=== PATIENT | female | born 1990 | race Caucasian/White ===

== ENCOUNTER 2022-09-27 07:59 | Outpatient (REF) | payer OTHER, SELFPAY ==
--- NOTE | ~2022-09-27 | US_ITS ---
EXAMINATION: US ABDOMEN COMPLETE CLINICAL INFORMATION: Left lower quadrant pain. Kidney disease. COMPARISON: None available. TECHNIQUE: Real-time imaging of the abdominal viscera. FINDINGS: PANCREAS: Normal. ABDOMINAL AORTA: The proximal, mid, and distal segments are normal in caliber. INFERIOR VENA CAVA: Visualized portions are normal. LIVER: Normal. The liver is normal in size. The liver contour is normal. Parenchymal echogenicity is normal. No focal hepatic lesion. There is no intrahepatic biliary duct dilatation seen. GALLBLADDER: Some ringdown artifact seen along the gallbladder wall suggestive of adenomyomatosis. The gallbladder is physiologically distended without evidence of stones, sludge, polyps, wall thickening or pericholecystic fluid. COMMON BILE DUCT: Normal in caliber measuring 0.3 cm in diameter. RIGHT KIDNEY: Column of Danial noted. No hydronephrosis. No renal calculi or focal parenchymal lesions. The kidney measures 9.7 cm in maximum dimension. LEFT KIDNEY: Normal. No hydronephrosis. No renal calculi or focal parenchymal lesions. The kidney measures 12.3 cm in maximum dimension. SPLEEN: Normal. The spleen measures 10.0 cm in maximum dimension. FREE FLUID: None. US/US abdomen complete IMPRESSION: No suspicious findings of the abdomen. Unremarkable appearance of the kidneys. Suggestion of adenomyomatosis of the gallbladder wall.
== END 2022-09-27 08:00 | disposition home or self-care (01) ==
LOC: HO.US 07:59
PROVIDERS: Visit Provider Physician Assistant
DX: R10.32 Left lower quadrant pain (principal); N28.9 Disorder of kidney and ureter, unspecified
CPT/HCPCS: 76700

== ENCOUNTER → 2022-10-03 09:56 | Outpatient (BNVA) | payer OTHER, SELFPAY | PROVIDERS: PCP Internal Medicine; Visit Provider Student in an Organized Health Care Education/Training Program ==

== ENCOUNTER 2022-12-06 13:25 | Outpatient (AMB) | payer OTHER, SELFPAY ==
[2022-12-06 13:30] VITALS: BP 102/62; PULSE 59; O2SAT 99; BMI 19.6
--- NOTE | 2022-12-06 13:30 | MHC.PC.OV ---
Vital Signs 12/06/22 13:30 Height 5 ft 8 in Weight 129 lb BMI 19.6 BP 102/62 Blood Pressure Location Lt brachial Position Sitting Pulse 59 Pulse Source Pulse Oximeter Pulse Oximetry (%) 99 Oxygen Delivery Method Room Air Intake Visit Reasons: New patient-Requesting physical Allergies amphetamine [From Adderall] Adverse Reaction (Intermediate, Verified 12/06/22 13:30) Hives dextroamphetamine [From Adderall] Adverse Reaction (Intermediate, Verified 12/06/22 13:30) Hives Medication List - Last Reconciled 12/06/22 by Yoni Jimenez MD ascorbic acid-elderberry fruit 100-50 mg (Airborne (elderberry)) tabs PO desogestrel-ethinyl estradiol 0.15-0.03 mg (Apri) 1 tab PO DAILY glycopyrrolate 2 mg PO BID loperamide 2 mg PO QID Tobacco use date assessed: 12/06/22 Dental Screening Dental Screen Date: 12/06/22 Did you have a dental visit in the last 12 months?: Yes Did you have a dental problem in the last 6 months where you did not have access to dental care?: No Was dental information given to patient?: Patient has dentist HPI New patient-Requesting physical HPI Details 32-year-old female with a history of migraine. Review of the notes seen by Rheumatology in October for positive ISABELLA. No evidence of autoimmune disease. hx of syncope - had post exercises and other one is heat. ? problem with depakote - was given before was mis diagnosed Seizure dizzy 2015, hearing problem PFSH Medical History (Updated 12/06/22 @ 14:07 by Yoni Jimenez MD) Migraine Surgical History Hx of colonoscopy Hx of tonsillectomy Family History (Updated 12/06/22 @ 13:50 by Yoni Jimenez MD) Mother No problems noted. 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 1. Little interest or pleasure in doing things: not at all 2. Feeling down, depressed, or hopeless: not at all 3. Trouble falling or staying asleep, or sleeping too much: not at all 4. Feeling tired or having little energy: not at all 5. Poor appetite or overeating: not at all 6. Feeling bad about yourself - or that you are a failure or have let yourself or your family down: not at all 7. Trouble concentrating on things, such as reading the newspaper or watching television: not at all 8. Moving or speaking so slowly that other people could have noticed. Or the opposite - being so fidgety or restless that you have been moving around a lot more than usual: not at all 9. Thoughts that you would be better off or of hurting yourself in some way: not at all Total score: 0 Depression Screening Interpretation: Negative Source: Developed by Drs. Jamie Saldivar, Mary Pickett, Vidal Langford and colleagues, with an educational jason from [employer]. Thrive Questionnaire Date Thrive assessed: 12/06/22 I am a: Patient What is your living situation today?: I have a steady place to live Within the past 12 months, did the food you bought not last and you didn't have the money to get more?: Never true Within the past 12 months, did you worry whether your food would run out before you got money to buy more?: Never true Do you have trouble paying for medicines?: No Do you have trouble getting transportation to medical appointments?: No Do you have trouble paying your heating and electricity bill?: No Do you have trouble taking care of your child, family member or friend?: No Do you have trouble with day-to-day activities such as bathing, preparing meals, shopping, managing finances, etc.?: No Are you currently unemployed and looking for a job?: No Are you interested in more education?: No Currently or been in a relationship where the following occur: no concerns reported AUDIT C Alcohol Use Questionnaire (AUDIT-C) 1. How often do you have a drink containing alcohol?: 2-3 times a week 2. How many drinks containing alcohol do you have on a typical day when you are drinking?: 1 or 2 3. How often do you have six or more drinks on one occasion?: Never Total Score: 3 MANA-7 AMB Questionnaire MANA-7 Date MANA - 7 assessed: 12/06/22 Feeling nervous, anxious, or on edge: 0 = Not at all Not being able to stop or control worryin = Not at all Worrying too much about different things: 0 = Not at all Trouble relaxin = Not at all Being so restless that it is hard to sit still: 0 = Not at all Becoming easily annoyed or irritable: 0 = Not at all Feeling afraid as if something awful might happen: 0 = Not at all Total MANA-7 score (0-4 normal; 5-9 mild; 10-14 moderate; 15-21 severe): 0 Source: Developed by Drs. Jamie Saldivar, Mary Pickett, Vidal Langford and colleagues, with an educational jason from [employer]. Review of Systems Const Denies poor appetite and Denies weakness Eyes Denies no additional complaints ENT Reports Normal hearing present, Denies dizziness, Denies nasal congestion, Denies tinnitus and Denies sore throat Card Denies chest pain, Denies syncope, Denies rapid heart rate and Denies dyspnea Resp Denies cough and Denies dyspnea GI Denies change in stool character, Reports constipation, Denies diarrhea, Denies nausea and Denies vomiting Denies urinary frequency, Denies difficulty voiding and Denies dysuria Neuro Reports Normal hearing present, Denies confusion, Denies dizziness, Denies syncope and Denies weakness Psych Denies confusion Physical exam (Primary Care) Vital Signs: Oxygen Delivery Method Room Air 12/06/22 13:30 BMI result Body Mass Index 19.6 Tobacco/Smoking Status: Tobacco use Status Patient Tobacco Use Status Never used Tobacco 10/03/22 10:15 Depression Screening Interpretation: Negative Currently or been in a relationship where the following occur: no concerns reported Const General: No confusion Orientation/consciousness: No confusion HENMT Head: Yes normocephalic Ears: external ears normal and TM's normal bilaterally Face and sinus: Yes normal facial exam Mouth: moist mucous membranes Throat: Yes tonsils normal Eyes Conjunctivae: conjunctivae normal Pupils: Equal, round and reactive pupils present and Pupil accommodation reflex normal Direct Ophthalmoscopy: normal light reflex Neck Neck: No lymphadenopathy Thyroid: Thyroid normal Chest Chest palpation & inspection: normal inspection of the chest Resp Effort & Inspection: normal respiratory effort and no audible wheezes Auscultation: clear to auscultation bilaterally, no crackles, no wheezes and lung sounds not diminished Cardio Rate: regular rate Rhythm: regular rhythm Peripheral pulses: radial pulses present and dorsalis pedis present GI Palpation (GI): no masses Auscultation: normal bowel sounds and normoactive bowel sounds Rectal Exam - Female: deferred Skin General skin exam: no rashes or lesions noted Rashes: no rashes Neuro General: No confusion Cranial nerves: Yes Equal, round and reactive pupils present and Yes Normal hearing present Cognition (Neuro): normal cognition Gait exam (Neuro): Normal gait present Motor exam (neuro): 5/5 motor strength present throughout Deep tendon reflexes (DTR's): Right brachioradialis reflex intensity grade: 2+, Left brachioradialis reflex intensity grade: 2+, Right patellar reflex intensity grade: 2+ and Left patellar reflex intensity grade: 2+ Extrem General: No edema Assessment and Plan Assessment & Plan (1) Annual physical exam: Code(s): Z00.00 - Encounter for general adult medical examination without abnormal findings (2) Migraine: Comment: once a med Code(s): G43.909 - Migraine, unspecified, not intractable, without status migrainosus Plan: Keep well-hydrated, eat healthy and keep active (3) Irritable bowel syndrome: Code(s): K58.9 - Irritable bowel syndrome without diarrhea (4) Hyperhidrosis: Code(s): R61 - Generalized hyperhidrosis (5) Generalized anxiety disorder: Code(s): F41.1 - Generalized anxiety disorder Orders: Orders Vitamin B12 and Folate Today R55 - Syncope and collapse Comprehensive Met. Panel Today R55 - Syncope and collapse Lipid Panel Today E78.00 - Pure hypercholesterolemia, unspecified, R55 - Syncope and collapse Free T4 (Free Thyroxine) Today R55 - Syncope and collapse Thyroid Stimulating Hormone Today R55 - Syncope and collapse Vitamin D 25-OH Total Today R55 - Syncope and collapse Complete Blood Count Auto Diff Today R55 - Syncope and collapse UA w Microscopic Today R55 - Syncope and collapse Medications: New ubrogepant (Ubrelvy) 100 mg PO .Q month 30 days 10 tabs 0RF G43.909 - Migraine, unspecified, not intractable, without status migrainosus glycopyrrolate 2 mg PO BID 180 tabs 0RF R61 - Generalized hyperhidrosis alprazolam 0.25 mg PO DAILY PRN 10 tabs 0RF anxiety F41.1 - Generalized anxiety disorder Refilled glycopyrrolate 2 mg PO BID 180 tabs 0RF R61 - Generalized hyperhidrosis Coding Level of Care Code New Pt Prev Care 18-39yr([id number] Diagnoses Annual physical exam Z00.00 Migraine G43.909 Irritable bowel syndrome K58.9 Hyperhidrosis R61 Generalized anxiety disorder F41.1
== END 2022-12-06 14:42 | disposition home or self-care (01) ==
PROVIDERS: PCP Internal Medicine; Visit Provider Internal Medicine
DX: Z00.00 Encounter for general adult medical examination without abnormal findings (principal); G43.909 Migraine, unspecified, not intractable, without status migrainosus; K58.9 Irritable bowel syndrome, unspecified; R61 Generalized hyperhidrosis; F41.1 Generalized anxiety disorder
CPT/HCPCS: 99385

== ENCOUNTER 2022-12-09 07:15 | Outpatient (REF) | payer OTHER, SELFPAY ==
[2022-12-09 07:32] LABS: MANUAL DIFF FLAG NO
[2022-12-09 08:09] LABS: Basophils Percent Auto 0.5 % (0-2); Eosinophils Absolute Auto 0.2 X10*3/uL (0.0-0.4); Eosinophils Percent Auto 2.7 % (0-4); Hematocrit 38.1 % (37.0-47.0); Hemoglobin 12.4 g/dl (12.0-16.0); Imm Gran Abs Auto 0.02 X10*3/uL (0.00-0.03); Imm Gran Pct Auto 0.3 % (0.0-0.4); Lymphocytes Absolute Auto 2.4 X10*3/uL (1.2-4.9); Mean Corpuscular HGB Conc 32.5 g/dl (31.0-35.0); Mean Corpuscular Hemoglobin 29.5 pg (27.0-33.0); Mean Corpuscular Volume 90.7 fL (80.0-98.0); Mean Platelet Volume 10.3 fL (9.4-12.3); Monocytes Absolute Auto 0.5 X10*3/uL (0.1-1.2); Monocytes Percent Auto 8.4 % (2-11); Neutrophils Absolute Auto 3.2 x10*3/uL (2.0-8.3); Neutrophils Percent Auto 50.1 % (45-73); Platelet Count 192 X10*3/uL (160-400); Red Cell Distribution Width 11.6 % (11.0-16.0); White Blood Count 6.3 X10*3/uL (4.8-10.8)
[2022-12-09 08:43] LABS: Alanine Aminotransferase 15 U/L (0-31); Albumin Level 3.8 g/dL (3.5-5.0); Alkaline Phosphatase 34 U/L (39-117); Anion Gap 14 (12-20); Aspartate Amino Transferase 15 U/L (5-31); Bilirubin Total 0.6 mg/dL (0.0-1.0); Blood Urea Nitrogen 11 mg/dL (9-16); Calcium 8.7 mg/dL (8.4-10.2); Carbon Dioxide 22 mmol/L (22-29); Chloride 108 mmol/L (96-108); Cholesterol 201 mg/dL; Estimated Glomerular Filt Rate > 60; Glucose Random 86 mg/dL (60-115); HDL Cholesterol 60 mg/dL; LDL Cholesterol Calculated 117 mg/dl; Potassium 3.9 mmol/L (3.3-5.1); Sodium 140 mmol/L (135-145); Total Protein 6.6 g/dL (6.5-8.0); Triglycerides 123 mg/dL
[2022-12-09 09:02] LABS: Appearance Urine Cloudy; Color Urine Yellow; Glucose Urine UA Negative (Negative); Leukocyte Esterase Urine Moderate (2+) (Negative); Nitrite Urine Negative (Negative); PH 5.5 (5.0-9.0); Specific Gravity - Urine >= 1.030 (1.005-1.025); UMIC TRIGGER UA YES; Urine Blood Small (1+) (Negative); Urine Ketones Trace mg/dL (Negative); Urine Protein Trace mg/dL (Neg-Trace)
[2022-12-09 09:04] LABS: Free T4 (Free Thyroxine) 0.83 ng/dL (0.71-1.85); Thyroid Stimulating Hormone 1.58 uIU/mL (0.32-4.0); Vitamin D 25-OH Total 31.5 ng/mL (>30)
[2022-12-09 09:08] LABS: Folate 14.7 ng/mL (> or = 4.0); Vitamin B12 595 pg/mL (200-900)
[2022-12-09 09:12] LABS: Bacteria Urine 3+ (None Seen); WBC Urine >50 /HPF (0-5)
== END 2022-12-09 07:16 | disposition home or self-care (01) ==
LOC: HO.LAB 07:15
PROVIDERS: PCP Internal Medicine; Visit Provider Internal Medicine
DX: R55 Syncope and collapse (principal); E78.00 Pure hypercholesterolemia, unspecified; E55.9 Vitamin D deficiency, unspecified
CPT/HCPCS: 36415; 80053; 80061; 81001; 82306; 82607; 82746; 84439; 84443; 85025

== ENCOUNTER 2023-03-20 10:55 | Outpatient (AMB) | payer OTHER, SELFPAY ==
[2023-03-20 10:58] VITALS: BP 114/68; PULSE 69; O2SAT 98; BMI 19.9
--- NOTE | 2023-03-20 10:58 | A.OFFPC_ITS ---
Vital Signs 03/20/23 10:58 Height 5 ft 8 in Weight 59.421 kg BMI 19.9 BP 114/68 Blood Pressure Location Lt brachial Position Sitting Pulse 69 Pulse Source Pulse Oximeter Pulse Oximetry (%) 98 Oxygen Delivery Method Room Air Intake Visit Reasons: 3 month f/u Allergies amphetamine [From Adderall] Adverse Reaction (Intermediate, Verified 03/20/23 10:58) Hives dextroamphetamine [From Adderall] Adverse Reaction (Intermediate, Verified 03/20/23 10:58) Hives Medication List - Last Reconciled 03/20/23 by Yoni Jimenez MD aluminum chloride in alcohol 6.25% (Xerac AC) 1 appl topical BEDTIME ascorbic acid-elderberry fruit 100-50 mg (Airborne (elderberry)) tabs PO desogestrel-ethinyl estradiol 0.15-0.03 mg (Apri) 1 tab PO DAILY glycopyrrolate 2 mg PO BID loperamide 2 mg PO QID ubrogepant (Ubrelvy) 100 mg PO .Q month 30 days Tobacco use date assessed: 12/06/22 Dental Screening Dental Screen Date: 03/20/23 Did you have a dental visit in the last 12 months?: Yes Did you have a dental problem in the last 6 months where you did not have access to dental care?: No Was dental information given to patient?: Patient has dentist HPI 3 month f/u HPI Details 33-year-old female with a history of [facility] irritable bowel syndrome hyperhidrosis in generalized anxiety disorder last seen in December 2022. Patient is here for follow-up patient has been sent to dermatology prescribed Drysol andQbrexa and glycopyrollate, xxerac. As for the irritable bowel syndrome seen in December 2022 on loperamide p.r.n. states brain fog, no passing out 3 months but anxious- seen neuro before ? was told seizure- patient saw another neurologist which refuted the diagnosis. Patient has been having right flank pain and discussed with the patient that with the urinalysis this could be infection. Advised to take the antibiotic. Patient also feels this problem on done neck having knot feeling right side of the neck and him foggy patient feels this when she gets anxious. Discussed about anxiety medication [facility] Medical History (Updated 03/20/23 @ 12:03 by Yoni Jimenez MD) Migraine Surgical History Hx of colonoscopy Hx of tonsillectomy Family History (Updated 12/06/22 @ 13:50 by Yoni Jimenez MD) Mother No problems noted. 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 1. Little interest or pleasure in doing things: not at all 2. Feeling down, depressed, or hopeless: not at all 3. Trouble falling or staying asleep, or sleeping too much: not at all 4. Feeling tired or having little energy: not at all 5. Poor appetite or overeating: not at all 6. Feeling bad about yourself - or that you are a failure or have let yourself or your family down: not at all 7. Trouble concentrating on things, such as reading the newspaper or watching television: not at all 8. Moving or speaking so slowly that other people could have noticed. Or the opposite - being so fidgety or restless that you have been moving around a lot more than usual: not at all 9. Thoughts that you would be better off or of hurting yourself in some way: not at all Total score: 0 Depression Screening Interpretation: Negative Depression Screening Done: Yes Source: Developed by Drs. Jamie Saldivar, Mary Pickett, Vidal Langford and colleagues, with an educational jason from [employer]. Thrive Questionnaire Date Thrive assessed: 12/06/22 AUDIT C Alcohol Use Questionnaire (AUDIT-C) 1. How often do you have a drink containing alcohol?: 2-3 times a week 2. How many drinks containing alcohol do you have on a typical day when you are drinking?: 1 or 2 3. How often do you have six or more drinks on one occasion?: Never Total Score: 3 MANA-7 AMB Questionnaire MANA-7 Date MANA - 7 assessed: 12/06/22 Source: Developed by Drs. Jamie Saldivar, Mary Pickett, Vidal Langford and colleagues, with an educational jason from [employer]. Physical exam (Primary Care) Vital Signs: Last Vital Signs Pulse 69 03/20/23 10:58 BP 114/68 03/20/23 10:58 Pulse Ox 98 03/20/23 10:58 Oxygen Delivery Method Room Air 03/20/23 10:58 BMI result Body Mass Index 19.9 Tobacco/Smoking Status: Tobacco use Status Tobacco use date assessed 12/06/22 03/20/23 10:59 Patient Tobacco Use Status Never used Tobacco 03/20/23 10:59 e-Cigarette/Vaping Use Never Used 03/20/23 10:59 PHQ-9: PHQ-9 Score PHQ-9: Total score 0 03/20/23 11:51 Depression Screening Interpretation: Negative Thrive Assessment: Date of Thrive Assessment Date Thrive assessed 12/06/22 03/20/23 10:59 Const General: alert; No acute distress Eyes Conjunctivae: conjunctivae normal Resp Auscultation: clear to auscultation bilaterally Cardio Rate: regular rate Rhythm: regular rhythm GI Inspection: Yes normal to inspection Extrem General: Yes normal to inspection and No edema Office Procedures Flu Questionnaire Does the patient have a severe egg allergy?: No Does the patient have severe life threatening allergies?: No Does the patient have a fever or illness today?: No Has the patient ever had Guillain-[place] Syndrome?: No Has the patient ever had any past reaction to a flu shot?: No Immunizations flu vacc [id number] 6mos up(PF) 60 mcg(15 mcgx4)/0.5 mL IM syringe Performing Provider: Yoni Jimenez MD [facility] [place] [facility] Administered by: Marleny Ambriz CMA on 03/20/23 12:14 Dose Route Admin Location Dispensed Lot Number Expiration Date [employer] 0.5 mL IM Left Deltoid 0.5 mL [id number] 11/02/23 53371-410-00 [employer] VIS Given Date VIS Provided VIS Publication Date 03/20/23 Single Vaccine 20 Eligibility Eligibility Date Funding Source Not [facility] Eligible 03/20/23 Private Assessment and Plan Assessment & Plan (1) Hyperhidrosis: Code(s): R61 - Generalized hyperhidrosis Plan: Patient follows up with Dermatology (2) Migraine: Comment: once a med Code(s): G43.909 - Migraine, unspecified, not intractable, without status migrainosus Plan: Keep well hydrated have good sleep habits (3) Irritable bowel syndrome: Code(s): K58.9 - Irritable bowel syndrome without diarrhea Plan: Patient on loperamide p.r.n. (4) Generalized anxiety disorder: Code(s): F41.1 - Generalized anxiety disorder Plan: Continue with present medication as needed (5) UTI (urinary tract infection): Code(s): N39.0 - Urinary tract infection, site not specified (6) Thoracic back pain: Code(s): M54.6 - Pain in thoracic spine (7) Neck pain: Code(s): M54.2 - Cervicalgia Orders: Orders XR cervical spine 2V Today M54.2 - Cervicalgia XR thoracic spine 2V Today M54.6 - Pain in thoracic spine Influenza [id number] Immunization Today Z23 - Encounter for immunization Medications: New aluminum chloride in alcohol 6.25% (Xerac AC) 1 appl topical BEDTIME 35 mL 1RF R61 - Generalized hyperhidrosis escitalopram oxalate (Lexapro) 5 mg PO DAILY 30 tabs 1RF F41.1 - Generalized anxiety disorder Coding Level of Care Code Est Pt Level 4 (83025) Diagnoses Hyperhidrosis R61 Migraine G43.909 Irritable bowel syndrome K58.9 Generalized anxiety disorder F41.1 UTI (urinary tract infection) N39.0 Thoracic back pain M54.6 Neck pain M54.2
== END 2023-03-20 12:12 | disposition home or self-care (01) ==
PROVIDERS: PCP Internal Medicine; Visit Provider Internal Medicine
DX: R61 Generalized hyperhidrosis (principal); G43.909 Migraine, unspecified, not intractable, without status migrainosus; K58.9 Irritable bowel syndrome, unspecified; F41.1 Generalized anxiety disorder; N39.0 Urinary tract infection, site not specified; M54.6 Pain in thoracic spine; M54.2 Cervicalgia; Z23 Encounter for immunization
CPT/HCPCS: 90471; 90686; 99214

== ENCOUNTER 2023-04-11 07:12 | Outpatient (REF) | payer OTHER, SELFPAY ==
--- NOTE | ~2023-04-11 | XR_ITS ---
EXAMINATION: XR CERVICAL SPINE CLINICAL INFORMATION: Neck pain COMPARISON: None available. TECHNIQUE: 3 views of the cervical spine were obtained. FINDINGS: The visualized cervical vertebrae are intact with normal alignment. Odontoid process is intact with normal C1/C2 lateral masses alignment. Pre-dental interval is normal. Pre vertebral soft tissue is normal in thickness. XR/XR cervical spine 2V IMPRESSION: 1. Normal cervical spine x-ray. 2. No fracture or dislocation of cervical spine is seen.
--- NOTE | ~2023-04-11 | XR_ITS ---
EXAMINATION: XR THORACOLUMBAR SPINE CLINICAL INFORMATION: Fluoroscopy thoracic spine pain COMPARISON: Thoracic spine x-ray on 02/17/2008 TECHNIQUE: Frontal and lateral x-ray of thoracic spine FINDINGS: Frontal, lateral views x-rays of the thoracic spine are obtained. The visualized thoracic vertebrae are intact with normal alignment. Intervertebral disc spaces are normal. XR/XR thoracic spine 2V IMPRESSION: 1. Unchanged Normal thoracic spine x-ray. 2. No fracture or dislocation of thoracic spine is seen.
== END 2023-04-11 07:13 | disposition home or self-care (01) ==
LOC: HO.XRAY 07:12
PROVIDERS: PCP Internal Medicine; Visit Provider Internal Medicine
DX: M54.2 Cervicalgia (principal); M54.6 Pain in thoracic spine
CPT/HCPCS: 72040; 72070

== ENCOUNTER 2023-05-15 15:01 | Outpatient (AMB) | payer OTHER, SELFPAY ==
[2023-05-15 15:04] VITALS: BP 116/78; PULSE 70; O2SAT 99; BMI 20.5
--- NOTE | 2023-05-15 15:04 | A.OFFPC_ITS ---
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: No Allergies amphetamine [From Adderall] Adverse Reaction (Intermediate, Verified 05/15/23 15 :06) Hives dextroamphetamine [From Adderall] Adverse Reaction (Intermediate, Verified 05/15/23 15:06) Hives Medication List - Last Reconciled 05/15/23 by Yoni Jimenez MD acyclovir 5% (Zovirax) 1 appl topical 6XD 7 days aluminum chloride in alcohol 6.25% (Xerac AC) 1 appl topical BEDTIME ascorbic acid-elderberry fruit 100-50 mg (Airborne (elderberry)) tabs PO desogestrel-ethinyl estradiol 0.15-0.03 mg (Apri) 1 tab PO DAILY escitalopram oxalate (Lexapro) 5 mg PO DAILY glycopyrrolate 2 mg PO BID loperamide 2 mg PO QID ubrogepant (Ubrelvy) 100 mg PO .Q month 30 days Tobacco use date assessed: 05/15/23 Dental Screening Dental Screen Date: 05/15/23 Did you have a dental visit in the last 12 months?: Yes Did you have a dental problem in the last 6 months where you did not have access to dental care?: No Was dental information given to patient?: Patient has dentist HPI MANA HPI Details 33-year-old female with hyperhidrosis mi graine irritable bowel syndrome generalized anxiety disorder coming in for follow-up. Last seen in March 2023 had thoracic back pain and neck pain. Patient did have some x-rays done on the thoracic spine and cervical spine these were normal [facility]LY [facility], [facility] Medical History (Updated 05/15/23 @ 15:44 by Yoni Jimenez MD) Migraine Surgical History Hx of colonoscopy Hx of tonsillectomy Family History (Updated 12/06/22 @ 13:50 by Yoni Jimenez MD) Mother No problems noted. 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 1. Little interest or pleasure in doing things: not at all 2. Feeling down, depressed, or hopeless: not at all 3. Trouble falling or staying asleep, or sleeping too much: not at all 4. Feeling tired or having little energy: not at all 5. Poor appetite or overeating: not at all 6. Feeling bad about yourself - or that you are a failure or have let yourself or your family down: not at all 7. Trouble concentrating on things, such as reading the newspaper or watching television: not at all 8. Moving or speaking so slowly that other people could have noticed. Or the opposite - being so fidgety or restless that you have been moving around a lot more than usual: not at all 9. Thoughts that you would be better off or of hurting yourself in some way: not at all Total score: 0 Depression Screening Interpretation: Negative Depression Screening Done: Yes Source: Developed by Drs. Jamie Saldivar, Mary Pickett, Vidal Langford and colleagues, with an educational jason from [employer]. Thrive Questionnaire Date Thrive assessed: 12/06/22 AUDIT C Alcohol Use Questionnaire (AUDIT-C) 1. How often do you have a drink containing alcohol?: 2-3 times a week 2. How many drinks containing alcohol do you have on a typical day when you are drinking?: 1 or 2 3. How often do you have six or more drinks on one occasion?: Never Total Score: 3 MANA-7 AMB Questionnaire MANA-7 Date MANA - 7 assessed: 05/15/23 Feeling nervous, anxious, or on edge: 0 = Not at all Not being able to stop or control worryin = Not at all Worrying too much about different things: 0 = Not at all Trouble relaxin = Not at all Being so restless that it is hard to sit still: 0 = Not at all Becoming easily annoyed or irritable: 0 = Not at all Feeling afraid as if something awful might happen: 0 = Not at all Total MANA-7 score (0-4 normal; 5-9 mild; 10-14 moderate; 15-21 severe): 0 Source: Developed by Drs. Jamie Saldivar, Mary Pickett, Vidal Langford and colleagues, with an educational jason from [employer]. Physical exam (Primary Care) Vital Signs: Last Vital Signs Pulse 70 05/15/23 15:04 BP 116/78 05/15/23 15:04 Pulse Ox 99 05/15/23 15:04 Oxygen Delivery Method Room Air 05/15/23 15:04 BMI result Body Mass Index 20.5 Tobacco/Smoking Status: Tobacco use Status Tobacco use date assessed 05/15/23 05/15/23 15:08 Patient Tobacco Use Status Never used Tobacco 05/15/23 15:08 e-Cigarette/Vaping Use Never Used 05/15/23 15:08 PHQ-9: PHQ-9 Score PHQ-9: Total score 0 05/15/23 15:08 Depression Screening Interpretation: Negative Thrive Assessment: Date of Thrive Assessment Date Thrive assessed 12/06/22 05/15/23 15:08 Const General: alert; No acute distress Eyes Conjunctivae: conjunctivae normal Resp Auscultation: clear to auscultation bilaterally Cardio Rate: regular rate Rhythm: regular rhythm GI Inspection: Yes normal to inspection Extrem General: Yes normal to inspection and No edema Assessment and Plan Assessment & Plan (1) Neck pain: Code(s): M54.2 - Cervicalgia Plan: Keep active and stretch (2) Thoracic back pain: Code(s): M54.6 - Pain in thoracic spine Plan: Keep active (3) Generalized anxiety disorder: Code(s): F41.1 - Generalized anxiety disorder Plan: Continue with medication (4) Hearing deficit: Code(s): H91.90 - Unspecified hearing loss, unspecified ear Orders: Orders Complete Blood Count Auto Diff 6 Months R61 - Generalized hyperhidrosis Comprehensive Met. Panel 6 Months R61 - Generalized hyperhidrosis Free T4 (Free Thyroxine) 6 Months R61 - Generalized hyperhidrosis Vitamin B12 and Folate 6 Months R61 - Generalized hyperhidrosis Vitamin D 25-OH Total 6 Months R61 - Generalized hyperhidrosis Erythrocyte Sedimentation Rate 6 Months R61 - Generalized hyperhidrosis C Reactive Protein 6 Months R61 - Generalized hyperhidrosis XR chest 2V Today M54.6 - Pain in thoracic spine Lipid Panel 6 Months E78.00 - Pure hypercholesterolemia, unspecified, R61 - Generalized hyperhidrosis UA w Microscopic 6 Months R61 - Generalized hyperhidrosis Referrals Gastroenterology Referral K58.9 - Irritable bowel syndrome without diarrhea Speech and Hearing Referral H91.90 - Unspecified hearing loss, unspecified ear Medications: New desogestrel-ethinyl estradiol 0.15-0.03 mg (Apri) 1 tab PO DAILY 84 tabs 1RF acyclovir 5% (Zovirax) 1 appl topical 6XD 5 grams 0RF 7 days K58.9 - Irritable bowel syndrome without diarrhea acyclovir 5% (Zovirax) 1 appl topical 6XD 5 grams 0RF 7 days Refilled desogestrel-ethinyl estradiol 0.15-0.03 mg (Apri) 1 tab PO DAILY 84 tabs 1RF K58.9 - Irritable bowel syndrome without diarrhea Coding Level of Care Code Est Pt Level 4 (77379) Diagnoses Neck pain M54.2 Thoracic back pain M54.6 Generalized anxiety disorder F41.1 Hearing deficit H91.90
== END 2023-05-15 15:51 | disposition home or self-care (01) ==
PROVIDERS: PCP Internal Medicine; Visit Provider Internal Medicine
DX: M54.2 Cervicalgia (principal); M54.6 Pain in thoracic spine; F41.1 Generalized anxiety disorder; H91.90 Unspecified hearing loss, unspecified ear
CPT/HCPCS: 99214

== ENCOUNTER 2023-05-16 08:19 | Outpatient (REF) | payer OTHER, SELFPAY ==
--- NOTE | ~2023-05-16 | XR_ITS ---
EXAMINATION: XR CHEST CLINICAL INFORMATION: Pain in the thoracic spine. COMPARISON: None available. TECHNIQUE: 2 views of the chest were obtained. FINDINGS: Normal appearance of the cardiomediastinal silhouette. No focal airspace opacities, pleural effusion or pneumothorax. No acute osseous findings. Visualized upper abdomen is within normal limits. XR/XR chest 2V IMPRESSION: 1. No acute cardiopulmonary findings. 2. No acute osseous findings. However, if symptoms persist, evaluation with dedicated radiographic views of the thoracic spine is recommended.
== END 2023-05-16 08:20 | disposition home or self-care (01) ==
LOC: HO.XRAY 08:19
PROVIDERS: PCP Internal Medicine; Visit Provider Internal Medicine
DX: M54.6 Pain in thoracic spine (principal)
CPT/HCPCS: 71046

== ENCOUNTER 2023-07-21 13:56 | Outpatient (AMB) | payer OTHER, SELFPAY ==
[2023-07-21 13:59] VITALS: BP 112/66; PULSE 77; BMI 21.9
--- NOTE | 2023-07-21 13:59 | MHC.OFFVIS ---
Intake Vital Signs 07/21/23 13:59 Height 5 ft 8 in Weight 144 lb 2.917 oz BMI 21.9 BP 112/66 Blood Pressure Location Rt brachial Position Sitting Pulse 77 Pulse Source Pulse Oximeter Intake Visit Reasons: Irritable bowel syndrome Intake Note: Pt presents to the office today for IBS. She states she has to constantly having to use immodium everyday. She states she has diarrhea mainly after she eats but it can happen at random times as well. She states she has been having this issue since about 2007. Pt denies any Nausea or vomiting. Allergies amphetamine [From Adderall] Adverse Reaction (Intermediate, Verified 07/21/23 14:00) Hives dextroamphetamine [From Adderall] Adverse Reaction (Intermediate, Verified 07/21/23 14:00) Hives HPI HPI Comments History of Present Illness Details Emilia is 33 y.o F with H who is here to establish care for IBS-D. Was diagnosed in 2007 for abd cramping and diarrhea. Prev used to get care at [facility] and before that Dr Edouard. Has trialed different IBS meds with side effects so now on Loperamide only. Currently, reports well controlled on imodium. Has may be 1 bad day in a week. Takes loperamide anywhere from 4-6mg per day. Also takes supplements including lions julieta, elderberry, ashwagandha, magnesium. Pt also noted to be on glycopyrrolate started by Director Of [employer]. Does reduce loperamide when she take glycopyrrolate. [facility] Medical History (Updated 05/15/23 @ 15:44 by Yoni Jimenez MD) Migraine Surgical History Hx of colonoscopy Hx of tonsillectomy Family History (Updated 12/06/22 @ 13:50 by Yoni Jimenez MD) Mother No problems noted. 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 Has had extensive work up done in past with x3 GIs. Now establishing care as moved from [place] to [place]. Reports excellent control of sx with loperamide which she has been taking for years and titrates to effect. No other concerns today. Will get records of last endoscopy from [facility] for reconciliation. Follow up in a year Medications: Changed From loperamide 2 mg PO QID 10 days 40 caps 0RF diarrhea To loperamide 2 mg PO QID 30 days 120 caps 1RF diarrhea Coding Level of Care Code New Pt Level 3 (57347) Diagnoses Irritable bowel syndrome K58.9
== END 2023-07-21 14:43 | disposition home or self-care (01) ==
PROVIDERS: PCP Internal Medicine; Visit Provider Internal Medicine
DX: K58.9 Irritable bowel syndrome, unspecified (principal)
CPT/HCPCS: 99203

== ENCOUNTER → 2023-07-21 13:56 | Outpatient (BNVA) | payer OTHER, SELFPAY | PROVIDERS: PCP Internal Medicine; Visit Provider Internal Medicine ==

== ENCOUNTER 2023-07-25 08:22 | Outpatient (REF) | payer OTHER, SELFPAY | END 2023-07-25 08:23 | disposition home or self-care (01) | LOC: HO.SH 08:22 | PROVIDERS: PCP Internal Medicine; Visit Provider Internal Medicine | DX: Z01.118 Encounter for examination of ears and hearing with other abnormal findings (principal); H91.90 Unspecified hearing loss, unspecified ear | CPT/HCPCS: 92557; 92567; 92588 ==

== ENCOUNTER 2023-12-09 07:01 | Outpatient (REF) | payer OTHER, SELFPAY ==
[2023-12-09 07:20] LABS: MANUAL DIFF FLAG NO
[2023-12-09 08:01] LABS: Basophils Percent Auto 0.5 % (0-2); Eosinophils Absolute Auto 0.3 X10*3/uL (0.0-0.4); Eosinophils Percent Auto 5.2 % (0-4); Hematocrit 36.4 % (37.0-47.0); Hemoglobin 12.2 g/dl (12.0-16.0); Imm Gran Abs Auto 0.01 X10*3/uL (0.00-0.03); Imm Gran Pct Auto 0.2 % (0.0-0.4); Lymphocytes Absolute Auto 2.4 X10*3/uL (1.2-4.9); Lymphocytes Percent Auto 43.1 % (20-40); Mean Corpuscular HGB Conc 33.5 g/dl (31.0-35.0); Mean Corpuscular Hemoglobin 30.4 pg (27.0-33.0); Mean Corpuscular Volume 90.8 fL (80.0-98.0); Mean Platelet Volume 10.3 fL (9.4-12.3); Monocytes Absolute Auto 0.5 X10*3/uL (0.1-1.2); Monocytes Percent Auto 8.7 % (2-11); Neutrophils Absolute Auto 2.3 x10*3/uL (2.0-8.3); Neutrophils Percent Auto 42.3 % (45-73); Platelet Count 245 X10*3/uL (160-400); Red Blood Count 4.01 X10*6/uL (4.20-5.50); Red Cell Distribution Width 11.7 % (11.0-16.0); White Blood Count 5.5 X10*3/uL (4.8-10.8)
[2023-12-09 08:35] LABS: Alanine Aminotransferase 17 U/L (0-31); Albumin Level 3.8 g/dL (3.5-5.0); Alkaline Phosphatase 36 U/L (39-117); Anion Gap 13 (12-20); Aspartate Amino Transferase 14 U/L (5-31); Bilirubin Total 0.6 mg/dL (0.0-1.0); Blood Urea Nitrogen 10 mg/dL (9-16); C Reactive Protein 0.39 mg/dL (< or = 0.50); Calcium 8.8 mg/dL (8.4-10.2); Carbon Dioxide 27 mmol/L (22-29); Chloride 107 mmol/L (96-108); Cholesterol 190 mg/dL (<200); Estimated Glomerular Filt Rate > 60; Glucose Random 89 mg/dL (60-115); HDL Cholesterol 60 mg/dL (>40); LDL Cholesterol Calculated 99 mg/dL (<100); Sodium 143 mmol/L (135-145); Total Protein 6.5 g/dL (6.5-8.0); Triglycerides 156 mg/dL (<150)
[2023-12-09 08:49] LABS: Erythrocyte Sedimentation Rate 6 MM/HR (0-20)
[2023-12-09 08:55] LABS: Free T4 (Free Thyroxine) 0.84 ng/dL (0.71-1.85); Vitamin D 25-OH Total 39.3 ng/mL (>30)
[2023-12-09 09:02] LABS: Folate 11.6 ng/mL (> or = 4.0); Vitamin B12 386 pg/mL (200-900)
[2023-12-09 10:25] LABS: Appearance Urine Turbid; Color Urine Dark Yellow; Glucose Urine UA Negative (Negative); Leukocyte Esterase Urine Moderate (2+) (Negative); Nitrite Urine Negative (Negative); Specific Gravity - Urine >= 1.030 (1.005-1.025); UMIC TRIGGER UA YES; Urine Blood Small (1+) (Negative); Urine Ketones Trace mg/dL (Negative); Urine Protein 30 (1+) mg/dL (Neg-Trace)
[2023-12-09 10:46] LABS: Bacteria Urine 4+ (None Seen); WBC Urine >50 /HPF (0-5)
== END 2023-12-09 07:02 | disposition home or self-care (01) ==
LOC: HO.LAB 07:01
PROVIDERS: PCP Internal Medicine; Visit Provider Internal Medicine
DX: R61 Generalized hyperhidrosis (principal); E78.00 Pure hypercholesterolemia, unspecified
CPT/HCPCS: 36415; 80053; 80061; 81001; 82306; 82607; 82746; 84439; 85025; 85652; 86140

== ENCOUNTER 2023-12-15 16:01 | Outpatient (AMB) | payer OTHER, SELFPAY ==
[2023-12-15 16:06] VITALS: BP 108/62; PULSE 68; O2SAT 97; BMI 21.3
--- NOTE | 2023-12-15 16:06 | A.OFFPC_ITS ---
Vital Signs 12/15/23 16:06 Height 5 ft 8 in Weight 140 lb BMI 21.3 BP 108/62 Blood Pressure Location Lt brachial Position Sitting Pulse 68 Pulse Source Pulse Oximeter Pulse Oximetry (%) 97 Oxygen Delivery Method Room Air Intake Visit Reasons: ANNUAL Allergies sumatriptan Allergy (Intermediate, Unverified 12/15/23 16:22) burning sensation nose amphetamine [From Adderall] Adverse Reaction (Intermediate, Verified 12/15/23 16:07) Hives dextroamphetamine [From Adderall] Adverse Reaction (Intermediate, Verified 12/15/23 16:07) Hives Medication List - Last Reconciled 12/15/23 by Yoni Jimenez MD acyclovir 5% (Zovirax) 1 appl topical 6XD 7 days aluminum chloride in alcohol 6.25% (Xerac AC) 1 appl topical BEDTIME ascorbic acid-elderberry fruit 100-50 mg (Airborne (elderberry)) tabs PO desogestrel-ethinyl estradiol 0.15-0.03 mg (Apri) 1 tab PO DAILY escitalopram oxalate 10 mg PO DAILY glycopyrrolate 2 mg PO BID loperamide 2 mg PO QID ubrogepant (Ubrelvy) 100 mg PO .Q month 30 days Tobacco use date assessed: 05/15/23 Dental Screening Dental Screen Date: 12/15/23 Did you have a dental visit in the last 12 months?: Yes Did you have a dental problem in the last 6 months where you did not have access to dental care?: No Was dental information given to patient?: Patient has dentist HPI ANNUAL HPI Details 33-year-old female coming in for physica l exam. History of generalized anxiety disorder migraine irritable bowel syndrome. Patient was last seen in 05/2023. Review of the notes has been follow-up with Dermatology diagnosis of dermatosis which is presently cleared up. Received the notes also for 2018 procedure from the Gastroenterology for small-bowel EGD revealing normal biopsy results. Patient also had a colonoscopy in 2019 normal. [facility] Medical History (Updated 12/15/23 @ 16:26 by Yoni Jimenez MD) Migraine Surgical History Hx of colonoscopy Hx of tonsillectomy Family History (Updated 12/06/22 @ 13:50 by Yoni Jimenez MD) Mother No problems noted. Father Hypertension Sister Melanoma Paternal Aunt Breast cancer Paternal Uncle Brain cancer Maternal Grandmother Breast cancer Social History (Updated 12/15/23 @ 16:23 by Yoni Jimenez MD) Household Members: None Housing: House Alcohol intake: current Alcohol intake frequency: holidays/special occasions only Comment: 1-2 /month - 1-2 drinks. 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 1. Little interest or pleasure in doing things: not at all 2. Feeling down, depressed, or hopeless: not at all 3. Trouble falling or staying asleep, or sleeping too much: not at all 4. Feeling tired or having little energy: not at all 5. Poor appetite or overeating: not at all 6. Feeling bad about yourself - or that you are a failure or have let yourself or your family down: not at all 7. Trouble concentrating on things, such as reading the newspaper or watching television: not at all 8. Moving or speaking so slowly that other people could have noticed. Or the opposite - being so fidgety or restless that you have been moving around a lot more than usual: not at all 9. Thoughts that you would be better off or of hurting yourself in some way: not at all Total score: 0 Depression Screening Interpretation: Negative Depression Screening Done: Yes Source: Developed by Drs. Jamie Saldivar, Mary Pickett, Vidal Langford and colleagues, with an educational jason from [employer]. Thrive Questionnaire Date Thrive assessed: 12/15/23 I am a: Patient What is your living situation today?: I have a steady place to live Within the past 12 months, did the food you bought not last and you didn't have the money to get more?: Never true Within the past 12 months, did you worry whether your food would run out before you got money to buy more?: Never true Do you have trouble paying for medicines?: No Do you have trouble getting transportation to medical appointments?: No Do you have trouble paying your heating and electricity bill?: No Do you have trouble taking care of your child, family member or friend?: No Do you have trouble with day-to-day activities such as bathing, preparing meals, shopping, managing finances, etc.?: No Are you currently unemployed and looking for a job?: No Are you interested in more education?: No Currently or been in a relationship where the following occur: No concerns reported THRIVE Score: 0 AUDIT C Alcohol Use Questionnaire (AUDIT-C) 1. How often do you have a drink containing alcohol?: 2-3 times a week 2. How many drinks containing alcohol do you have on a typical day when you are drinking?: 1 or 2 3. How often do you have six or more drinks on one occasion?: Never Total Score: 3 MANA-7 AMB Questionnaire MANA-7 Date MANA - 7 assessed: 05/15/23 Source: Developed by Drs. Jamie Saldivar, Mary Pickett, Vidal Langford and colleagues, with an educational jason from [employer]. Review of Systems Const Denies poor appetite and Denies weakness Eyes Denies no additional complaints ENT Reports Normal hearing present, Denies dizziness, Denies nasal congestion, Denies tinnitus and Denies sore throat Card Denies chest pain, Denies syncope, Denies rapid heart rate and Denies dyspnea Resp Denies cough and Denies dyspnea GI Denies change in stool character, Reports constipation, Denies diarrhea, Denies nausea and Denies vomiting Denies urinary frequency, Denies difficulty voiding and Denies dysuria Neuro Reports Normal hearing present, Denies confusion, Denies dizziness, Denies sy ncope and Denies weakness Psych Denies confusion Physical exam (Primary Care) Vital Signs: Last Vital Signs Pulse 68 12/15/23 16:06 BP 108/62 12/15/23 16:06 Pulse Ox 97 12/15/23 16:06 Oxygen Delivery Method Room Air 12/15/23 16:06 BMI result Body Mass Index 21.3 Tobacco/Smoking Status: Tobacco use Status Tobacco use date assessed 05/15/23 12/15/23 16:12 Patient Tobacco Use Status Never used Tobacco 12/15/23 16:12 Tobacco use type Cigarette 12/15/23 16:12 e-Cigarette/Vaping Use Never Used 12/15/23 16:12 PHQ-9: PHQ-9 Score PHQ-9: Total score 0 12/15/23 16:12 Depression Screening Interpretation: Negative Thrive Assessment: Date of Thrive Assessment Date Thrive assessed 12/15/23 12/15/23 16:12 Currently or been in a relationship where the following occur: No concerns reported Const General: alert and awake; No confusion Orientation/consciousness: No confusion HENMT Head: Yes normocephalic Ears: external ears normal and TM's normal bilaterally Face and sinus: Yes normal facial exam Mouth: moist mucous membranes Throat: Yes tonsils normal Eyes Conjunctivae: conjunctivae normal Pupils: Equal, round and reactive pupils present and Pupil accommodation reflex normal Direct Ophthalmoscopy: normal light reflex Neck Neck: No lymphadenopathy Thyroid: Thyroid normal Chest Chest palpation & inspection: normal inspection of the chest Resp Effort & Inspection: normal respiratory effort and no audible wheezes Auscultation: clear to auscultation bilaterally, no crackles, no wheezes and lung sounds not diminished Cardio Rate: regular rate Rhythm: regular rhythm Peripheral pulses: radial pulses present and dorsalis pedis present GI Palpation (GI): no masses Auscultation: normal bowel sounds and normoactive bowel sounds Rectal Exam - Female: deferred Skin General skin exam: no rashes or lesions noted Rashes: no rashes Neuro General: deep tendon reflexes 2+ bilaterally and No confusion Cranial nerves: Yes Equal, round and reactive pupils present, Yes Midline tongue present, Yes Normal hearing present and Yes Ability to bilaterally elevate shoulders present Cognition (Neuro): normal cognition Gait exam (Neuro): Normal gait present Motor exam (neuro): 5/5 motor strength present throughout Deep tendon reflexes (DTR's): Right brachioradialis reflex intensity grade: 2+, Left brachioradialis reflex intensity grade: 2+, Right patellar reflex intensity grade: 2+ and Left patellar reflex intensity grade: 2+ Extrem General: No edema Assessment and Plan Assessment & Plan (1) Annual physical exam: Code(s): Z00.00 - Encounter for general adult medical examination without abnormal findings Plan: Patient is advised to eat healthy, keep well hydrated, keep active and have adequate sleep. (2) Migraine: Comment: once a med Code(s): G43.909 - Migraine, unspecified, not intractable, without status migrainosus Plan: Placed on Ubrelvy every month (3) Irritable bowel syndrome: Code(s): K58.9 - Irritable bowel syndrome without diarrhea Plan: Patient has been prescribed loperamide and has seen gastroenterology (4) Generalized anxiety disorder: Code(s): F41.1 - Generalized anxiety disorder Plan: Continue with present management with Lexapro (5) Recurrent UTI: Code(s): N39.0 - Urinary tract infection, site not specified Orders: Orders Triiodothyronine T3 Reverse Today F41.1 - Generalized anxiety disorder TSH reflex Free T4 Today F41.1 - Generalized anxiety disorder Referrals Urology Referral N39.0 - Urinary tract infection, site not specified Coding Level of Care Code Est Pt Prev Care 18-39y(53525) Diagnoses Annual physical exam Z00.00 Migraine G43.909 Irritable bowel syndrome K58.9 Generalized anxiety disorder F41.1 Recurrent UTI N39.0
== END 2023-12-15 16:53 | disposition home or self-care (01) ==
PROVIDERS: PCP Internal Medicine; Visit Provider Internal Medicine
DX: Z00.00 Encounter for general adult medical examination without abnormal findings (principal); G43.909 Migraine, unspecified, not intractable, without status migrainosus; K58.9 Irritable bowel syndrome, unspecified; F41.1 Generalized anxiety disorder; N39.0 Urinary tract infection, site not specified
CPT/HCPCS: 99395

== ENCOUNTER 2023-12-15 16:57 | Outpatient (REF) | payer OTHER, SELFPAY ==
[2023-12-15 18:33] LABS: TSH reflex Free T4 1.27 uIU/mL (0.32-4.0)
[2023-12-20 16:23] LABS: Triiodothyronine T3 Reverse 14 ng/dL (8-25)
== END 2023-12-15 16:58 | disposition home or self-care (01) ==
LOC: HO.LAB 16:57
PROVIDERS: PCP Internal Medicine; Visit Provider Internal Medicine
DX: F41.1 Generalized anxiety disorder (principal)
CPT/HCPCS: 36415; 84443; 84482

== ENCOUNTER 2024-02-13 15:02 | Outpatient (AMB) | payer OTHER, SELFPAY ==
--- NOTE | 2024-02-13 15:28 | MHC.OFFVIS ---
Intake Visit Reasons: recurrent UTI/Micro Hematuria Intake Note: New patient is present for Recurrent UTI/Micro Hematuria States she never see blood in urine only when tested has been going on for few years with low back pain no history of kidney stones Allergies sumatriptan Allergy (Intermediate, Verified 04/13/24 08:42) burning sensation nose amphetamine [From Adderall] Adverse Reaction (Intermediate, Verified 04/13/24 08:42) Hives dextroamphetamine [From Adderall] Adverse Reaction (Intermediate, Verified 04/13/24 08:42) Hives HPI Comments Details: Emilia is a pleasant female. She is a patient Dr. Jimenez. She is seen for the following urologic conditions - microscopic hematuria - recurrent UTI Microscopic hematuria Background IBS-D Is under GI care Has occasional UTIs No clear trigger Obtain renal ultrasound and cytology [facility] Medical History (Updated 02/13/24 @ 16:09 by Ghulam Knowles MD) Recurrent UTI UTI (urinary tract infection) Migraine Surgical History Hx of colonoscopy Hx of tonsillectomy Family History (Updated 12/06/22 @ 13:50 by Yoni Jimenez MD) Mother No problems noted. Father Hypertension Sister Melanoma Paternal Aunt Breast cancer Paternal Uncle Brain cancer Maternal Grandmother Breast cancer Social History (Updated 12/15/23 @ 16:23 by Yoni Jimenez MD) Household Members: None Housing: House Alcohol intake: current Alcohol intake frequency: holidays/special occasions only Comment: 1-2 /month - 1-2 drinks. 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 Cognitive needs: No Hearing needs: No Vision needs: Yes Review of Systems Const Denies chills and Denies fever(s) Card Reports no additional complaints and Denies syncope Resp Denies cough GI Denies abdominal pain and Denies heartburn Reports as per HPI and Denies change in libido Neuro Denies syncope Psych Denies change in libido Endo Denies change in libido Physical Exam Const General: cooperative, healthy appearing, comfortable and no acute distress Orientation/consciousness: patient oriented x3 HEENT Face and sinus: Yes normal facial exam Mouth: moist mucous membranes Neck Neck: Yes normal visual inspection, Yes full ROM and Yes trachea midline Chest Chest palpation & inspection: normal inspection of the chest Resp Effort & Inspection: normal respiratory effort, able to speak in complete sentences and no respiratory distress GI Inspection: Yes normal to inspection Back/Spine/Pelvis Cervical Spine: normal cervical lordosis Thoracic/Lumbar Spine: thoracic and lumbar spine normal to inspection Skin General skin exam: no rashes or lesions noted Neuro General: patient oriented x3, gait normal, tone normal and moves all extremities Extrem General: Yes normal to inspection and Yes capillary refill normal Results AMB Urinalysis, Automated UA Leukoctes 15 Kashif/uL Last Edit by Stephany Faustin [facility] on 02/13/24 16:01 UA Nitrite Negative Last Edit by Stephany Faustin [facility] on 02/13/24 16:01 UA Urobilinogen 0.2 mg/dL Last Edit by Stephany Faustin [facility] on 02/13/24 16:01 UA Protein 15 mg/dL Last Edit by Stephany Faustin [facility] on 02/13/24 16:01 UA pH 6.0 Last Edit by Stephany Faustin [facility] on 02/13/24 16:01 UA Blood 25 Valeriano/uL Last Edit by Stephany Faustin [facility] on 02/13/24 16:01 UA Specific [place] 1.030 Last Edit by Stephany Faustin [facility] on 02/13/24 16:01 UA Ketone Negative Last Edit by Stephany Faustin [facility] on 02/13/24 16:01 UA Bilirubin 0 mg/dL Last Edit by Stephany Faustin [facility] on 02/13/24 16:01 UA Glucose 0 mg/dL Last Edit by Stephany Faustin [facility] on 02/13/24 16:01 Results Reviewed Results Reviewed: Laboratory Last Values Urine pH (Auto) 6.0 02/13/24 16:00 Specific [place] (Auto) 1.030 02/13/24 16:00 Urine Protein (Auto) 15 mg/dL 02/13/24 16:00 Glucose (UA)(Auto) 0 mg/dL 02/13/24 16:00 Urine Ketones (Auto) Negative 02/13/24 16:00 Urine Blood (Auto) 25 Valeriano/uL 02/13/24 16:00 Urine Nitrite (Auto) Negative 02/13/24 16:00 Urine Bilirubin (Auto) 0 mg/dL 02/13/24 16:00 Urine Urobilinogen (Auto) 0.2 mg/dL 02/13/24 16:00 Leukocyte Esterase (Auto) 15 Kashif/uL 02/13/24 16:00 Assessment & Plan Assessment & Plan (1) Microscopic hematuria: Code(s): R31.29 - Other microscopic hematuria Category: Medical Plan Follow-up after imaging Orders: Orders AMB Urinalysis Automated 02/13/24 Z13.9 - Encounter for screening, unspecified Urine Cytology 02/13/24 R31.29 - Other microscopic hematuria US renal BI 1 Month N20.0 - Calculus of kidney, R31.29 - Other microscopic hematuria Patient Instructions: Imaging studies, laboratory and physical exam results were discussed and reviewed in detail. No major barriers to patient understanding were identified. An opportunity to ask questions regarding the treatment plan was provided. All questions were answered. The patient expressed understanding and agreement with the above treatment plan. The patient is aware they should contact our office by phone for worsening of their current condition or the appearance of new urologic symptoms. Compliance is encouraged with any medications and followup testing that is ordered. It is a privilege to participate in the urologic care of your patient. If you have any questions or concerns regarding treatment for the above conditions, or other urologic issues, please do not hesitate to contact me. The office telephone contact is [phone]. This note is constructed using voice recognition software. While every effort has been made to ensure accuracy performance architect errors may have been included. Yours sincerely, Dr Ghulam Knowles MD, LAT[facility] - Urology Providers of Expert, Compassionate Care for the Genitourinary System Coding Level of Care Code New Pt Level 3 (26042) Diagnoses Microscopic hematuria R31.29
== END 2024-02-13 16:10 | disposition home or self-care (01) ==
PROVIDERS: PCP Internal Medicine; Visit Provider Urology
DX: R31.29 Other microscopic hematuria (principal)
CPT/HCPCS: 99203

== ENCOUNTER 2024-02-13 15:02 | Outpatient (REF) | payer OTHER, SELFPAY ==
[2024-02-13 16:48] LABS: Urine Cytology See Pathology rpt
== END 2024-02-13 15:03 | disposition home or self-care (01) ==
LOC: HO.LAB 15:02
PROVIDERS: PCP Internal Medicine; Visit Provider Urology
DX: R31.29 Other microscopic hematuria (principal)
CPT/HCPCS: 81003; 88112

== ENCOUNTER 2024-03-10 07:48 | Outpatient (REF) | payer OTHER, SELFPAY ==
--- NOTE | ~2024-03-10 | US_ITS ---
EXAMINATION: US RETROPERITONEAL LIMITED (RENAL ONLY) CLINICAL INFORMATION: Renal stones. COMPARISON: .09/27/2022 TECHNIQUE: Real-time ultrasound imaging of the kidneys . Limited visualization due to bowel gas. FINDINGS: RIGHT KIDNEY: 10.4 x 4.0 x 4.5 cm (SAG x AP x TRV). No hydronephrosis. No renal calculi. Renal cortical thickness is normal. Limited visualization. LEFT KIDNEY: 11.7 x 5.2 x 4.1 cm (SAG x AP x TRV). No hydronephrosis. No renal calculi. Renal cortical thickness is normal. Limited visualization. US/US renal BI IMPRESSION: No hydronephrosis. No renal calculi. Electronically signed by: Mehreen Akbar MD 03/10/2024 10:15 AM GYPSY MALDONADO
== END 2024-03-10 07:49 | disposition home or self-care (01) ==
LOC: HO.US 07:48
PROVIDERS: PCP Internal Medicine; Visit Provider Urology
DX: N20.0 Calculus of kidney (principal); R31.29 Other microscopic hematuria
CPT/HCPCS: 76775

== ENCOUNTER 2024-04-13 08:39 | Outpatient (AMB) | payer OTHER, SELFPAY ==
--- NOTE | 2024-04-13 08:41 | A.OFFVIS_ITS ---
Intake Visit Reasons: 2M Ultrasound(set) Intake Note: Patient is present for 2m ultrasounds Urology Medication:none Antibiotic Allergy:none Blood Thinner:none Mechanic Welder Required: No Allergies sumatriptan Allergy (Intermediate, Verified 04/13/24 08:42) burning sensation nose amphetamine [From Adderall] Adverse Reaction (Intermediate, Verified 04/13/24 08:42) Hives dextroamphetamine [From Adderall] Adverse Reaction (Intermediate, Verified 04/13/24 08:42) Hives HPI Comments Details: Emilia is a pleasant female. She is a patient Dr. Jimenez. She is seen for the following urologic conditions - microscopic hematuria - recurrent UTI Telemedicine Evaluation 15 min Consultation Doximity Mark Video Discussed ultrasound result normal Discussed cytology result normal 12 month follow-up repeat UA Microscopic hematuria Background IBS-D Is under GI care Has occasional UTIs No clear trigger Imaging - renal ultrasound normal Cytology normal UA 1+ 25 Reassurance provided [facility] Medical History (Updated 02/13/24 @ 16:09 by Ghulam Knowles MD) Recurrent UTI UTI (urinary tract infection) Migraine Surgical History Hx of colonoscopy Hx of tonsillectomy Family History (Updated 12/06/22 @ 13:50 by Yoni Jimenez MD) Mother No problems noted. Father Hypertension Sister Melanoma Paternal Aunt Breast cancer Paternal Uncle Brain cancer Maternal Grandmother Breast cancer Social History (Updated 12/15/23 @ 16:23 by Yoni Jimenez MD) Household Members: None Housing: House Alcohol intake: current Alcohol intake frequency: holidays/special occasions only Comment: 1-2 /month - 1-2 drinks. 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 Cognitive needs: No Hearing needs: No Vision needs: Yes Telehealth Telehealth Telehealth Platform: [employer] Location of provider rendering services: practice address Location of patient: address on file Patient Identification confirmed using: Name, : Yes Telehealth method: video Patient verbally consented to treatment: Yes Patient verbally consented to billing insurance company: Yes Patient informed of any privacy concerns related to visit: Yes Minutes spent on Phone/Video with Pt.: 15 Assessment & Plan Assessment & Plan (1) Microscopic hematuria: Code(s): R31.29 - Other microscopic hematuria Category: Medical Plan Twelve month follow-up nurse-practitioner Patient Instructions: Imaging studies, laboratory and physical exam results were discussed and reviewed in detail. No major barriers to patient understanding were identified. An opportunity to ask questions regarding the treatment plan was provided. All questions were answered. The patient expressed understanding and agreement with the above treatment plan. The patient is aware they should contact our office by phone for worsening of their current condition or the appearance of new urologic symptoms. Compliance is encouraged with any medications and followup testing that is ordered. It is a privilege to participate in the urologic care of your patient. If you have any questions or concerns regarding treatment for the above conditions, or other urologic issues, please do not hesitate to contact me. The office telephone contact is [phone]. This note is constructed using voice recognition software. While every effort has been made to ensure accuracy ripsaw operator errors may have been included. Yours sincerely, Dr Ghulam Knowles MD, [facility] - Urology Providers of Expert, Compassionate Care for the Genitourinary System Coding Level of Care Code Tele Est Pt Level 3 (72752) Diagnoses Microscopic hematuria R31.29
--- OUTSIDE RECORDS SUMMARY | 2024-04-14 19:02 | XMS_ITS ---
Author Name [facility] Organization Unknown History of Medication Use Medication Directions Dispensed Refills Start Date End Date Stat ELDERBERRY PO Take by mouth. 09/06/2022 active amitriptyline (ELAVIL) 10 MG tablet TAKE 2 TABLETS BY MOUTH NIGHTLY 09/06/2022 aborted ubrogepant (Ubrelvy) 100 MG tablet Take 100 mg by mouth once as needed for migraine. May repeat in 2 hours if unresolved. Do not exceed 200 mg in 24 hours. 09/06/2022 active loperamide (IMODIUM A-D) 2 MG capsule Take 1 capsule (2 mg total) by mouth 4 (four) times a day as needed for diarrhea. 09/06/2022 aborted hydrocortisone (ANUSOL-HC) 2.5 % rectal cream Insert into the rectum 3 (three) times a day as needed for hemorrhoids. 09/06/2022 active desogestrel-ethinyl estradiol (Apri) 0.15-30 MG-MCG per tablet 09/06/2022 active loperamide (IMODIUM A-D) 2 MG capsule TAKE 1 CAPSULE BY MOUTH 4 TIMES A DAY NEEDED FOR DIARRHEA. 05/10/2023 active ALPRAZolam (XANAX) 0.25 MG tablet 12/13/2022 active glycopyrrolate (ROBINUL) 2 MG tablet 09/06/2022 act isauro hydrocortisone (ANUSOL-HC) 2.5 % rectal cream Insert into the rectum 3 (three) times a day as needed for hemorrhoids. 10/25/2022 active Problems Problem Status Onset Date Problem Type Date of Resoluti on Source Anxiety state active 2022-12-11 ProblemAct [facility] Dysmenorrhea active 2022-12-11 ProblemAct [facility] Irritable bowel syndrome with diarrhea active 2020-05-13 ProblemAct [facility]
== END 2024-04-13 11:04 | disposition home or self-care (01) ==
LOC: HO.HUSH 08:40
PROVIDERS: PCP Internal Medicine; Visit Provider Urology
DX: R31.29 Other microscopic hematuria (principal)
CPT/HCPCS: 99213

== ENCOUNTER → 2024-04-13 08:39 | Outpatient (BNVA) | payer OTHER, SELFPAY | PROVIDERS: PCP Internal Medicine; Visit Provider Urology ==

== ENCOUNTER 2024-04-15 07:12 | Outpatient (REF) | payer OTHER, SELFPAY ==
[2024-04-15 07:30] LABS: MANUAL DIFF FLAG NO
[2024-04-15 08:01] LABS: Basophils Percent Auto 0.3 % (0-2); Eosinophils Absolute Auto 0.2 X10*3/uL (0.0-0.4); Eosinophils Percent Auto 3.4 % (0-4); Hematocrit 38.2 % (37.0-47.0); Imm Gran Abs Auto 0.01 X10*3/uL (0.00-0.03); Imm Gran Pct Auto 0.1 % (0.0-0.4); Lymphocytes Absolute Auto 2.9 X10*3/uL (1.2-4.9); Lymphocytes Percent Auto 40.1 % (20-40); Mean Corpuscular Hemoglobin 30.7 pg (27.0-33.0); Mean Corpuscular Volume 90.1 fL (80.0-98.0); Mean Platelet Volume 9.7 fL (9.4-12.3); Monocytes Absolute Auto 0.6 X10*3/uL (0.1-1.2); Monocytes Percent Auto 8.6 % (2-11); Neutrophils Absolute Auto 3.4 x10*3/uL (2.0-8.3); Neutrophils Percent Auto 47.5 % (45-73); Platelet Count 214 X10*3/uL (160-400); Red Blood Count 4.24 X10*6/uL (4.20-5.50); Red Cell Distribution Width 11.7 % (11.0-16.0); White Blood Count 7.1 X10*3/uL (4.8-10.8)
[2024-04-15 08:16] LABS: Estimated Average Glucose 108 mg/dL; Hemoglobin A1c % 5.4 % (<6.0); Total Hemoglobin (HGBA1C) 3311.9074 umol/L
[2024-04-15 08:23] LABS: Alanine Aminotransferase 19 U/L (0-31); Alkaline Phosphatase 44 U/L (39-117); Anion Gap 12 (12-20); Aspartate Amino Transferase 19 U/L (5-31); Bilirubin Total 0.5 mg/dL (0.0-1.0); Blood Urea Nitrogen 14 mg/dL (9-16); Calcium 9.6 mg/dL (8.4-10.2); Carbon Dioxide 25 mmol/L (22-29); Chloride 107 mmol/L (96-108); Estimated Glomerular Filt Rate > 60; Glucose Random 88 mg/dL (60-115); Iron 77 mcg/dL (30-160); Percent Iron Saturation 20 % (15-50); Sodium 140 mmol/L (135-145); Total Iron Binding Capacity 377 mcg/dL (228-428); Unsaturated Iron Binding 300 ug/dL
[2024-04-15 08:42] LABS: Free T4 (Free Thyroxine) 1.03 ng/dL (0.71-1.85); TSH reflex Free T4 2.09 uIU/mL (0.32-4.0); Vitamin D 25-OH Total 20.6 ng/mL (>30)
[2024-04-15 08:50] LABS: Folate 12.8 ng/mL (> or = 4.0); Vitamin B12 1121 pg/mL (200-900)
== END 2024-04-15 07:13 | disposition home or self-care (01) ==
LOC: HO.LAB 07:12
PROVIDERS: PCP Internal Medicine
DX: Z00.00 Encounter for general adult medical examination without abnormal findings (principal); R42 Dizziness and giddiness; M54.50 Low back pain, unspecified; R20.2 Paresthesia of skin; E11.65 Type 2 diabetes mellitus with hyperglycemia
CPT/HCPCS: 36415; 80053; 82306; 82607; 82746; 83036; 83540; 84439; 84443; 85025; 96127

== ENCOUNTER 2024-04-15 13:59 | Outpatient (AMB) | payer OTHER, SELFPAY ==
[2024-04-15 13:59] VITALS: BP 110/68; PULSE 88; O2SAT 98; BMI 22.5
--- NOTE | 2024-04-15 13:59 | MHC.PC.OV ---
Vital Signs 04/15/24 13:59 Height 5 ft 8 in Weight 148 lb BMI 22.5 BP 110/68 Blood Pressure Location Lt brachial Position Sitting Pulse 88 Pulse Source Pulse Oximeter Pulse Oximetry (%) 98 Oxygen Delivery Method Room Air Intake Visit Reasons: Constant fatigue, dizzy tingling in face, Substation Supervisor Required: No Accompanied by: Self / Same As Patient Allergies sumatriptan Allergy (Intermediate, Verified 04/15/24 14:00) burning sensation nose amphetamine [From Adderall] Adverse Reaction (Intermediate, Verified 04/15/24 14:00) Hives dextroamphetamine [From Adderall] Adverse Reaction (Intermediate, Verified 04/15/24 14:00) Hives Tobacco use date assessed: 04/15/24 Dental Screening Dental Screen Date: 04/15/24 HPI Constant fatigue, dizzy tingling in face, HPI Details 34-year-old female with past medical history of generalized anxiety disorder, migraine, irritable bowel syndrome last seen by Dr. Jimenez December 2023 coming in for acute problem.? In review of the notes patient was seen by Urology 04/13/2024 for microscopic hematuria workup normal advise 12 month follow up. States she has always had brain fog but over the last week has felt increased brain fog, lightheadedness and extremely fatigued. She also mentioned having tingling in the face and feeling like she was going to pass out without actually having a syncopal episode. She was recently seen by the eye doctor in December and denies any issues with her balance or vision. She was previously diagnosed with epilepsy and treated on antiepileptic medications but was cleared by another neurologist. [facility] Medical History (Updated 04/15/24 @ 14:32 by Melita Cook PA-C) Recurrent UTI UTI (urinary tract infection) Migraine Surgical History Hx of colonoscopy Hx of tonsillectomy Family History Mother No problems noted. Father Hypertension Sister Melanoma Paternal Aunt Breast cancer Paternal Uncle Brain cancer Maternal Grandmother Breast cancer Social History Household Members: None Housing: House Alcohol intake: current Alcohol intake frequency: holidays/special occasions only Comment: 1-2 /month - 1-2 drinks. 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 1. Little interest or pleasure in doing things: not at all 2. Feeling down, depressed, or hopeless: not at all 3. Trouble falling or staying asleep, or sleeping too much: not at all 4. Feeling tired or having little energy: not at all 5. Poor appetite or overeating: not at all 6. Feeling bad about yourself - or that you are a failure or have let yourself or your family down: not at all 7. Trouble concentrating on things, such as reading the newspaper or watching television: not at all 8. Moving or speaking so slowly that other people could have noticed. Or the opposite - being so fidgety or restless that you have been moving around a lot more than usual: not at all 9. Thoughts that you would be better off or of hurting yourself in some way: not at all Total score: 0 Depression Screening Interpretation: Negative Depression Screening Done: Yes Source: Developed by Drs. Jamie Saldivar, Mary Pickett, Vidal Langford and colleagues, with an educational jason from [employer]. Thrive Questionnaire Date Thrive assessed: 04/15/24 I am a: Patient What is your living situation today?: I have a steady place to live Within the past 12 months, did the food you bought not last and you didn't have the money to get more?: Never true Within the past 12 months, did you worry whether your food would run out before you got money to buy more?: Never true Do you have trouble paying for medicines?: No Do you have trouble getting transportation to medical appointments?: No Do you have trouble paying your heating and electricity bill?: No Do you have trouble taking care of your child, family member or friend?: No Do you have trouble with day-to-day activities such as bathing, preparing meals, shopping, managing finances, etc.?: No Are you currently unemployed and looking for a job?: No Are you interested in more education?: No Please select the resources that you would like help with: None Currently or been in a relationship where the following occur: No concerns reported THRIVE Score: 0 AUDIT C Alcohol Use Questionnaire (AUDIT-C) 1. How often do you have a drink containing alcohol?: 2-3 times a week 2. How many drinks containing alcohol do you have on a typical day when you are drinking?: 1 or 2 3. How often do you have six or more drinks on one occasion?: Never Total Score: 3 MANA-7 AMB Questionnaire MANA-7 Date MANA - 7 assessed: 04/15/24 Feeling nervous, anxious, or on edge: 0 = Not at all Not being able to stop or control worryin = Not at all Worrying too much about different things: 0 = Not at all Trouble relaxin = Not at all Being so restless that it is hard to sit still: 0 = Not at all Becoming easily annoyed or irritable: 0 = Not at all Feeling afraid as if something awful might happen: 0 = Not at all Total MANA-7 score (0-4 normal; 5-9 mild; 10-14 moderate; 15-21 severe): 0 Source: Developed by Drs. Jamie Saldivar, Mary Pickett, Vidal Langfrod and colleagues, with an educational jason from [employer]. Review of Systems Const Denies body aches, Denies chills, Reports fatigue, Denies fever(s), Denies headache(s) and Denies poor appetite Eyes Reports no additional complaints ENT Denies dysphagia, Denies dizziness, Denies headache(s) and Denies odynophagia Card Denies chest pain, Denies syncope, Denies edema, Denies irregular heart rhythm, Reports lightheadedness and Denies dyspnea Resp Denies cough and Denies dyspnea GI Denies abdominal pain, Denies constipation, Denies dysphagia, Denies diarrhea, Denies nausea, Denies odynophagia and Denies vomiting Reports no additional complaints Musc Reports no additional complaints and Denies abnormal gait Skin/Breast Reports system reviewed and no additional complaints, except as documented Neuro Denies abnormal gait, Denies dizziness, Denies syncope and Denies headache(s) Psych Reports no additional complaints Endo Reports fatigue Physical exam (Primary Care) Vital Signs: Last Vital Signs Pulse 88 04/15/24 13:59 BP 110/68 04/15/24 13:59 Pulse Ox 98 04/15/24 13:59 Oxygen Delivery Method Room Air 04/15/24 13:59 BMI result Body Mass Index 22.5 Tobacco/Smoking Status: Tobacco use Status Tobacco use date assessed 04/15/24 04/15/24 14:06 Patient Tobacco Use Status Never used Tobacco 04/15/24 14:06 Tobacco use type Cigarette 04/15/24 14:06 e-Cigarette/Vaping Use Never Used 04/15/24 14:06 PHQ-9: PHQ-9 Score PHQ-9: Total score 0 04/15/24 14:09 Depression Screening Interpretation: Negative Thrive Assessment: Date of Thrive Assessment Date Thrive assessed 04/15/24 04/15/24 14:06 Currently or been in a relationship where the following occur: No concerns reported Const General: cooperative, healthy appearing, comfortable and no acute distress Orientation/consciousness: patient oriented x3 HENMT Head: Yes normocephalic Ears: hearing grossly normal bilaterally General nose exam: Normal external nose present Eyes General: appearance normal, both eyes and all related structures Conjunctivae: conjunctivae normal Pupils: Equal, round and reactive pupils present EOM: EOMs intact bilaterally Neck Neck: Yes full ROM and Yes no lymphadenopathy Resp Effort & Inspection: normal respiratory effort Auscultation: clear to auscultation bilaterally, no crackles, no rales, no rhonchi and no wheezes Cardio Rate: regular rate Rhythm: regular rhythm Skin General skin exam: no rashes or lesions noted Neuro General: patient oriented x3 and moves all extremities Cranial nerves: Yes Equal, round and reactive pupils present, Yes Normal facial strength present and Yes Ability to bilaterally elevate shoulders present Gait exam (Neuro): Normal gait present Extrem General: Yes normal to inspection, Yes full ROM and No edema Psych Affect: normal affect Attitude: cooperative Insight: Good insight present (Psych) Judgement: Good judgement present (Psych) Coding Level of Care Code Est Pt Level 3 (50592) Diagnoses Lightheadedness R42 Lumbar spine pain M54.50 Facial paresthesia R20.2 Assessment & Plan Assessment & Plan (1) Lightheadedness: Code(s): R42 - Dizziness and giddiness Category: Medical Plan: Advised patient to drink plenty of water. Blood work unremarkable today in no identifiable cause for lightheadedness or fatigue. Advised patient to follow up with her neurologist for further evaluation. (2) Lumbar spine pain: Code(s): M54.50 - Low back pain, unspecified Category: Medical Plan: Patient having lumbar spine pain and previously diagnosed with bulging discs via MRI and has seen spinal specialists in the past. Continues to have pain and would like a repeat MRI discussed that she would have to undergo physical therapy and failed physical therapy 1st. Referral placed to PT. (3) Facial paresthesia: Code(s): R20.2 - Paresthesia of skin Category: Medical Plan: Blood work unremarkable today in no identifiable cause for facial paresthesias or fatigue. Advised patient to follow up with her neurologist for further evaluation. Plan This note was constructed using voice recognition software. While every effort has been made to ensure accuracy and interpreter, still areas may have been included sometimes these areas may affect the content or meeting of the given symptoms. Total time spent caring for the patient today was 20 minutes. This includes time spent before the visit reviewing the chart, time spent during the visit, and time spent after the visit and documentation. Orders: Orders PT Evaluation and Treatment Today M54.50 - Low back pain, unspecified Referrals Neurology Referral R20.2 - Paresthesia of skin, R42 - Dizziness and giddiness
== END 2024-04-15 14:43 | disposition home or self-care (01) ==
PROVIDERS: PCP Internal Medicine
DX: R42 Dizziness and giddiness (principal); M54.50 Low back pain, unspecified; R20.2 Paresthesia of skin

== ENCOUNTER 2024-06-09 06:51 | Outpatient (REF) | payer OTHER, SELFPAY ==
--- OUTSIDE RECORDS SUMMARY | 2024-06-09 06:54 | XMS_ITS | Clinical Summary ---
Author Organization [facility] Address [address] [place] [address] Care Team Providers Care Sensor Operator Name Role Phone Elizabet Minor MD Primary Care Provider Social History Tobacco Use Types Packs/Day Years Used Date Smoking Tobacco: Unknown Sex and Gender Information Value Date Recorded Sex Assigned at Not on file Gender Identity Not on file Sexual Orientation Not on file Last Filed Vital Signs Vital Sign Reading Time Taken Comments Blood Pressure 108/64 05/17/2016 2:42 PM EST Pulse 81 05/17/2016 2:42 PM EST Temperature - - Respiratory Rate 16 01/12/2015 9:13 AM EDT Oxygen Saturation 98% 05/17/2016 2:42 PM EST Inhaled Oxygen Concentration - - Weight 54.4 kg (120 lb) 05/17/2016 2:42 PM EST Height 172.7 cm (5' 8 ) 05/17/2016 2:42 PM EST Body Mass Index 18.25 05/17/2016 2:42 PM EST Plan of Treatment Health Maintenance Due Date Last Done Comments Hepatitis B Vaccines (1 of 3 - 3-dose series) 1990 Hepatitis C Screening 1990 COVID-19 Vaccine (#1) 1990 Depression Screening 2002 Preventative Health Evaluation 01/26/2008 DTap / Tdap / Td (1 - Tdap) 2009 Cervical Cancer Screening (P ap Smear) 2011 Influenza Vaccine (#1) 2024 Pneumococcal Vaccine Aged Out No long er eligible based on patient's age to complete this topic RSV Ped < 20 months Aged Out No longe r eligible based on patient's age to complete this topic Care Teams Sensor Operator Relationship Specialty Start Date End Date Elizabet Minor MD [address] [place] [address] PCP - General Internal Medicine 04/21/18
--- OUTSIDE RECORDS SUMMARY | 2024-06-09 06:54 | XMS_ITS | Data Portability ---
Author Organization [place] - [facility], [facility] Address [id number] [place] [address] Care Team Providers Care Physicist Solid State Name Role Phone KARU SANFORD Primary Care Provider [phone] Assessment No assessment recorded. Plan of Treatment Reminders Order Date Submit Date Provider Last Modified By Organization Details Last Modified Time Details Appointments ANNUAL HOPPER ATTENDANT 15 2024 04:00P M Dr. Idania Salazar Not available Not available Not available Lab urinalysi s, dipstick 2020 021 [email or web address] In-Office Order, Internal Use Only DO Not Attach Compendium DO Not Attach Compendium, Do Not Delete/merge, [id number] 05/12/2020 14:51:22 pap, IG + CT/NG + HR HPV + reflex HPV (16+18) - OCPs 2020 021 [facility], [address] [place], [address] 05/17/2020 07:50:18 urinalysi s, dipstick 2021 022 [email or web address] In-Office Order, Internal Use Only DO Not Attach Compendium DO Not Attach Compendium, Do Not Delete/merge, [id number] 07/10/2021 08:57:10 urinalysi s, dipstick 2022 023 [email or web address] In-Office Order, Internal Use Only DO Not Attach Compendium DO Not Attach Compendium, Do Not Delete/merge, [id number] 10/18/2022 16:33:45 pap, IG + reflex HPV - OCPs 2022 023 [facility], [address] [facility], [place], [address] 10/23/2022 13:04:11 urinalysi s, dipstick 2023 024 brianna In-Office Order, Internal Use Only DO Not Attach Compendium DO Not Attach Compendium, Do Not Delete/merge, [id number] 10/24/2023 16:52:33 Referral gastroent erologist referral 2020 021 SHAYLA Diehl MD, [address] [place], [address], 10/02/2020 18:26:12 Procedures None recorded. Surgeries None recorded. Imaging None recorded. Medication Orders hydrocort isone-pra moxine 2.5 %-1 % rectal cream 2020 021 [email or web address] [id number], [address], [place], [address], 10/18/2022 15:58:26 Apri 0.15 mg-0.03 mg tablet 2020 021 [facility]FACE [id number], [address], [place], [address], 05/13/2020 16:34:37 Apri 0.15 mg-0.03 mg tablet 2021 022 [id number], [address] [place], [address], 07/10/2021 08:57:12 Apri 0.15 mg-0.03 mg tablet 2022 023 [id number], [address] [place], [address], 10/18/2022 16:33:47 Apri 0.15 mg-0.03 mg tablet 2023 024 [facility], [address] [place] [address], [address], 10/24/2023 16:52:33 Patient TargetsNo targets recorded. Patient Instructions Encounter Date Encounter Id Patient Instructions Last Modified By Organization Details Last Modified Time 05/12/2020 [id number] breast self-exam : care instructions [email or web address] Not available 05/12/2020 14:51:22 tips to help you stay healthy [email or web address] Not available 05/12/2020 14:51:22 07/10/2021 [id number] breast self-exam : care instructions [email or web address] Not available 07/10/2021 08:57:10 tips to help you stay healthy [email or web address] Not available 07/10/2021 08:57:10 10/18/2022 [id number] breast self-exam : care instructions [email or web address] Not available 10/18/2022 16:33:45 tips to help you stay healthy [email or web address] Not available 10/18/2022 16:33:45 10/24/2023 [id number] breast self-exam : care instructions [email or web address] Not available 10/24/2023 16:52:31 tips to help you stay healthy [email or web address] Not available 10/24/2023 16:52:31 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 The assay is FDA appro leandro for testi ng ThinP rep liqui d Pap vials but not FDA appro leandro for detec ting HPV in SureP ath liqui d Pap speci mens. In-ho use valid ation has shown the assay can detec t all HPV types from this [facility] Not Available [facility] [address] [place], [address] 05/17/2020 07:50:09 05/12/19 21 05/12/2020 pap, IG + CT/NG + HR HPV + refle x HPV (16+1 8) report Report Final Gynec ologi sandeep Cytol ogy Repor t ----- ----- ----- ----- ----- ----- ----- ----- ----- ----- ----- ----- ThinP rep Pap Test, GC/CT HPV Scree n, Refle x HPV Genot ype SPECI MEN ADEQU ACY: SATIS FACTO RY FOR EVALU ATION ; ENDOC ERVIC AL/TR ANSFO RMATI ON ZONE COMPO NENT ABSEN T/INS [facility] IENT . INTER PRETA TION: NEGAT EVERETT FOR INTRA EPITH ELIAL FRANTZ Shaikh OR STARLA LOWRY . Tara sanchez obscu ring blood . Elect rowena Maki d: Taylor Burgos, [place] (ASCP ) ----- ----- ----- ----- ----- ----- ----- ----- ----- ----- ----- ----- CLINI SANDEEP INFOR LÓEN N: LMP: 03/24 Clini sandeep Histo ry: RTN Speci men Sourc e: Cervi x, Endoc ervix Previ ous Pap Date: 05/07 HPV RESUL TS: HPV mRNA E6/E7 [id number] Appro leandro: 05/14 Negat everett REF RANGE : Negat everett CPT Codes : 41760 ICD Codes : Z12.4 , Z11.3 Not Available [facility] [address] [place], [address] 05/17/2020 07:50:17 05/12/19 21 05/12/2020 chlam ydia sp DNA, unspe cifie d speci men chlamydia trachomatis RNA, tma Negati ve negati ve Not Available [facility] [address] [place], [address] 05/17/2020 07:50:21 05/12/19 21 05/12/2020 NG DNA, PCR, unspe cifie d speci men neisseria gonorrhoeae RNA, tma Negati ve negati ve Not Available [facility] [address] [place], [address] 05/17/2020 07:50:22 05/12/19 21 05/12/2020 urina lysis , dipst ick Leukocytes Trace Not Available In-Offi ce Order Internal Use Only DO Not Attach Compendium DO Not Attach Compendium, Do Not Delete/merge, [id number] 05/10/2020 21:41:41 05/12/19 21 05/12/2020 urina lysis , dipst ick Nitrite negati ve Not Available In-Office Order Internal Use Only DO Not Attach Compendium DO Not Attach Compendium, Do Not Delete/merge, [id number] 05/10/2020 21:41:41 05/12/19 21 05/12/2020 urina lysis , dipst ick Protein Trace Not Available In-Office Order Internal Use Only DO Not Attach Compendium DO Not Attach Compendium, Do Not Delete/merge, [id number] 05/10/2020 21:41:41 05/12/19 21 05/12/2020 urina lysis , dipst ick Glucose Negati ve Not Available In-Office Order Internal Use Only DO Not Attach Compendium DO Not Attach Compendium, Do Not Delete/merge, [id number] 05/10/2020 21:41:41 07/11/19 22 07/10/2021 urina lysis , dipst ick Leukocytes Trace Not Available In-Offi ce Order Internal Use Only DO Not Attach Compendium DO Not Attach Compendium, Do Not Delete/merge, [id number] 07/09/2021 09:21:36 07/11/19 22 07/10/2021 urina lysis , dipst ick Nitrite negati ve Not Available In-Office Order Internal Use Only DO Not Attach Compendium DO Not Attach Compendium, Do Not Delete/merge, [id number] 07/09/2021 09:21:36 07/11/19 22 07/10/2021 urina lysis , dipst ick Protein Trace Not Available In-Office Order Internal Use Only DO Not Attach Compendium DO Not Attach Compendium, Do Not Delete/merge, [id number] 07/09/2021 09:21:36 07/11/19 22 07/10/2021 urina lysis , dipst ick Glucose Negati ve Not Available In-Office Order Internal Use Only DO Not Attach Compendium DO Not Attach Compendium, Do Not Delete/merge, [id number] 07/09/2021 09:21:36 10/19/19 23 10/18/2022 THINP REP PAP TEST (IMAG ER) WITH HPV REFLE X report Report Final Gynec ologi sandeep Cytol ogy Repor t ----- ----- ----- ----- ----- ----- ----- ----- ----- ----- ----- ----- ThinP rep Pap Test with HPV Refle x SPECI MEN ADEQU ACY: SATIS FACTO RY FOR EVALU ATION ; ENDOC ERVIC AL/TR ANSFO RMATI ON ZONE COMPO NENT PRESE NT. INTER PRETA TION: NEGAT EVERETT FOR INTRA EPITH ELIAL FRANTZ Shaikh OR STARLA LOWRY . Elect rowena Maki d: Johanna Ford, HOMERO (ASC ) ----- ----- ----- ----- ----- ----- ----- ----- ----- ----- ----- ----- CLINI SANDEEP INFOR LEÓN N: LMP: 07/03 Clini sandeep Histo ry: RTN Biops y Date: NG Speci men Sourc e: Cervi x, Endoc ervix Previ ous Pap Date: NG CPT Codes : 71376 ICD Codes : Z12.4 Not Available [facility] [address] [place] [address], [address] 10/23/2022 13:04:10 10/19/19 23 10/18/2022 urina lysis , dipst ick Leukocytes Trace Not Available In-Offi ce Order Internal Use Only DO Not Attach Compendium DO Not Attach Compendium, Do Not Delete/merge, [id number] 10/16/2022 11:51:01 10/19/19 23 10/18/2022 urina lysis , dipst ick Nitrite negati ve Not Available In-Office Order Internal Use Only DO Not Attach Compendium DO Not Attach Compendium, Do Not Delete/merge, [id number] 10/16/2022 11:51:01 10/19/19 23 10/18/2022 urina lysis , dipst ick Protein Trace Not Available In-Office Order Internal Use Only DO Not Attach Compendium DO Not Attach Compendium, Do Not Delete/merge, [id number] 10/16/2022 11:51:01 10/19/19 23 10/18/2022 urina lysis , dipst ick Glucose Negati ve Not Available In-Office Order Internal Use Only DO Not Attach Compendium DO Not Attach Compendium, Do Not Delete/merge, [id number] 10/16/2022 11:51:01 10/24/19 24 10/24/2023 urina lysis , dipst ick Leukocytes Negati ve Not Available In-Office Order Internal Use Only DO Not Attach Compendium DO Not Attach Compendium, Do Not Delete/merge, [id number] 09/30/2023 15:05:52 10/24/19 24 10/24/2023 urina lysis , dipst ick Nitrite negati ve Not Available In-Office Order Internal Use Only DO Not Attach Compendium DO Not Attach Compendium, Do Not Delete/merge, [id number] 09/30/2023 15:05:52 10/24/19 24 10/24/2023 urina lysis , dipst ick Protein Trace Not Available In-Office Order Internal Use Only DO Not Attach Compendium DO Not Attach Compendium, Do Not Delete/merge, 09/30/2023 15:05:52 10/24/19 24 10/24/2023 urina lysis , dipst ick Glucose Negati ve Not Available In-Office Order Internal Use Only DO Not Attach Compendium DO Not Attach Compendium, Do Not Delete/merge, [id number] 09/30/2023 15:05:52 06/16/19 21 06/16/2020 US, pelvi s, trans abdom inal + trans vagin al RAD DBA_PATCH_ [id number] [facility] [address] [facility] [address], [place], [address], 11/16/2020 05:00:27 06/16/19 21 06/16/2020 US, unlis santy RAD [email or web address] [facility] [address] [facility] [address], [place], [address], 06/18/2020 11:26:35 Result Notes None recorded. 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 162457195 Active 2019 unclear diagnosi s -- positive EEG, then negative EEG, poor toleranc e of anti-epi leptic meds, off all meds IDANIA SALAZAR MD [address], [address] [place] [address] , [facility] 4 05:40:18 Irritabl e bowel syndrome 06813246 Completed 202005/13/2020 IDANIA SALAZAR MD [address], [address] [place] [address] , [facility] 1 16:26:05 Irritabl e bowel syndrome with diarrhea 388521113 Active 2020 imodium, unable to julissa amitript yline // JROSA SALAZAR MD [address], [address] , [facility] 4 05:40:47 Sweating 162147604 Active 2021 glycopyr rolate // dermatol ogy IDANIA SALAZAR MD [address], [address] [place] [address], [address] , [facility] 4 05:40:43 Dysmenor giuseppe 893512185 Active OCPs Not Available [facility] 2 10:37:13 Problem Notes None recorded. Procedures Surgical History Date Name Laterality Status Provider Name and Address Organization Details Recorded Time 10/19/19 23 Date of Last Pap Smear completed IDANIA SALAZAR MD 175 [facility], [address] [place] [address], [address] [place] [address], [facility] 10/31/2022 18:37:48 04/11/20 16 [id number] completed IDANIA SALAZAR MD 175 [facility], [address] [place] [address], [address] [place] [address], [facility] 04/13/2016 11:48:07 04/11/20 16 [id number] completed IDANIA SALAZAR MD 175 [facility], [address] [place] [address], [address] [place] [address], [facility] 04/13/2016 11:48:18 04/11/20 16 [id number] completed IDANIA SALAZAR MD 175 [facility], [address] [place] [address], [address] [place] [address], [facility] 04/13/2016 11:47:57 04/11/20 16 [id number] completed IDANIA SALAZAR MD 175 [facility], [address] [place] [address], [address] [place] [address], [facility] 04/13/2016 11:48:02 12/04/19 16 [id number] completed IDANIA SALAZAR MD 175 [facility], [address] [place] [address], [address] [place] [address], [facility] 12/04/2015 11:11:20 12/04/19 16 [id number] completed IDANIA SALAZAR MD 175 [facility], [address] [place] [address], [phone], [facility] 12/04/2015 11:11:20 05/05/19 13 Tonsillectomy completed IDANIA SALAZAR MD [address], [address], [facility] 10/18/2022 16:03:09 Imaging Results Imaging Date Name Status LastModified by Organization Details LastModified Time 06/16/2020 US, pelvis, transabdominal + transvaginal completed DBA_PATCH_ [address], [place], [address], 11/16/2020 05:00:27 06/16/2020 US, unlisted completed [email or web address] [address], [place], [address], 06/18/2020 11:26:35 Procedure Notes None recorded. Medical Equipment None Reported. Allergies Allergen ID Allergen Name Allergen Category Reaction Reaction Severity Criticality Documentation Date Start Date Code Code System Note Provider Name and Address Organization Details Recorded Time 917890 Silicone (substanc e) environme nt,medica tion Not available Not available Not available 10/04/20142012 19975 007 SNOMED IDANIA SALAZAR MD [address], [address], [facility] 6 11:02:09 893326 latex environme nt,medica tion Not available Not available Not available 10/04/2014 14834 91 RxNorm IDANIA SALAZAR MD 175 [facility], [address] [place] [address], [address], [facility] 6 11:24:32 Medications Name Sig Start Date Stop Date Status Note LastModified by Organization Details LastModified Time cyclobenzap rine 10 mg tablet active Not Available Not Available Not Available oxcarbazepi ne 150 mg tablet 05/07 completed Not Available Not Available Not Available prednisone 10 mg tablet 05/07 completed Not Available Not Available Not Available Apri 0.15 mg-0.03 mg tablet Take one active tablet daily and discard placebos active Not Available Not Available No t Available hydrocortis one-pramoxi ne 2.5 %-1 % rectal cream APPLY RECTALLY EVERY DAY AT BEDTIME FOR 14 DAYS. 10/18 completed Not Available Not Available Not Available loperamide 2 mg capsule TAKE 1 CAPSULE BY MOUTH 4 TIMES A DAY NEEDED FOR DIARRHEA. active Not Available Not Available No t Available Xerac AC 6.25 % topical solution 10/21 completed Not Available Not Available Not Available azithromyci n 250 mg tablet active Not Available Not Available Not Available prednisone 20 mg tablet TAKE 2 TABS BY MOUTH FOR 5 DAYS. TAKE 1 TAB BY MOUTH FOR 5 DAYS. TAKE 1/2 TAB BY MOUTH FOR 5 DAYS 10/18 completed Not Available Not Available Not Available FML Liquifilm 0.1 % eye drops,suspe nsion active Not Available Not Available Not Available sumatriptan 50 mg tablet 05/10 completed Not Available Not Available Not Available diphenoxyla te-atropine 2.5 mg-0.025 mg tablet TAKE 1 TABLET BY MOUTH 4 TIMES A DAY NEEDED FOR DIARRHEA. 07/09 completed Not Available Not Available Not Available lamotrigine 25 mg tablet 05/07 completed Not Available Not Available Not Available hydrocortis one 2.5 % topical cream with perineal applicator INSERT INTO THE RECTUM 3 TIMES A DAY NEEDED FOR HEMORRHOI DS. 07/09 completed Not Available Not Available Not Available amoxicillin 875 mg tablet 05/01 completed Not Available Not Available Not Available gentamicin 0.3 % eye drops active Not Available Not Available Not Available amitriptyli ne 10 mg tablet TAKE 2 TABLETS BY MOUTH NIGHTLY 07/09 completed Not Available Not Available Not Available acyclovir 5 % topical ointment 10/21 completed Not Available Not Available Not Available omeprazole 20 mg capsule,del ayed release TAKE 1 CAPSULE BY MOUTH EVERY DAY 30 MINUTES BEFORE MORNING MEAL FOR 30 DAYS 10/18 completed Not Available Not Available Not Available Drysol Dab-O-Matic 20 % topical solution 05/07 completed Not Available Not Available Not Available clobetasol 0.05 % topical ointment APPLY A THIN LAYER TO THE AFFECTED AREA(S) BY TOPICAL ROUTE 2 TIMES PER DAY FOR ONE WEEK 04/25 completed Not Available Not Available Not Available oxybutynin chloride 5 mg tablet TAKE 1 TABLET BY MOUTH TWICE A DAY 10/18 completed Not Available Not Available Not Available fluticasone propionate 50 mcg/actuati on nasal spray,suspe nsion 07/09 completed Not Available Not Available Not Available dicyclomine 10 mg capsule 05/07 completed Not Available Not Available Not Available glycopyrrol ate 2 mg tablet TAKE 1 TABLET BY MOUTH TWICE A DAY active Not Available Not Available No t Available naproxen 500 mg tablet active Not Available Not Available Not Available tobramycin 0.3 %-dexametha sone 0.1 % eye drops,suspe nsion active Not Available Not Available Not Available Amphetamine Salt Combo 10 mg tablet active Not Available Not Available Not Available escitalopra m 10 mg tablet active Not Available Not Available Not Available divalproex ER 250 mg tablet,exte nded release 24 hr 05/07 completed Not Available Not Available Not Available escitalopra m 5 mg tablet active Not Available Not Available Not Available Boostrix Tdap 2.5 Lf unit-8 mcg-5 Lf/0.5 mL intramuscul ar suspension TO BE ADMINISTE RED BY PHARMACIS T FOR IMMUNIZAT ION 06/14 completed Not Available Not Available Not Available sodium fluoride 1.1 % dental paste USE TO BRUSH AT BEDTIME, DO NOT EAT OR DRINK FOR 30 MINUTES AFTER 10/18 completed Not Available Not Available Not Available diclofenac 1 % topical gel APPLY 1-4 GRAMS EXTERNALL Y TWICE A DAY 14 DAYS 10/18 completed Not Available Not Available Not Available GaviLyte-G 236 gram-22.74 gram-6.74 gram-5.86 gram oral solution 05/07 completed Not Available Not Available Not Available Lotemax 0.5 % eye gel drops 04/25 completed Not Available Not Available Not Available Fluarix Quad (PF) 60 mcg (15 mcg x 4)/0.5 mL IM syringe 05/10 completed Not Available Not Available Not Available Ubrelvy 100 mg tablet TAKE 1 TABLET BY MOUTH NEEDED, MAY TAKE SECOND DOSE 2 HOURS LATER IF NEEDED active Not Available Not Available No t Available Flucelvax Quad (PF) 60 mcg (15 mcg x 4)/0.5 mL IM syringe PHARMACY ADMINISTE RED 06/14 completed Not Available Not Available Not Available Vitals Date Recorded Body height Provider Name an d Address Organization Details Last Updated DateTime 05/12/2020 172.72 cm Landon Singh [facility] 05/12/2020 10:31:11 Date Recorded Body mass index (BMI) Body weight Systolic blood pressure Diastolic blood pressure Provider Name and Address Organization Details Last Updated DateTime 05/12/2020 20.1 kg/m2 95238.19 g 100 mm[Hg] 60 mm[Hg] Margot Doherty [facility] 05/12/2020 11:05:56 Date Recorded Body height Body mass index (BMI) Body weight Systolic blood pressure Diastolic blood pressure Provider Name and Address Organization Details Last Updated DateTime 07/10/2021 172.72 cm 19.2 kg/m2 58115.64 g 104 mm[Hg] 62 mm[Hg] Margot Doherty [facility] 2 08:34:06 Date Recorded Body weight Body mass index (BMI) Body height Systolic blood pressure Diastolic blood pressure Provider Name and Address Organization Details Last Updated DateTime 10/18/2022 35253.6 g 19.9 kg/m2 172.72 cm 110 mm[Hg] 78 mm[Hg] Fadumo Elder [facility] 3 15:57:44 Date Recorded Body height Body mass index (BMI) Body weight Systolic blood pressure Diastolic blood pressure Provider Name and Address Organization Details Last Updated DateTime 10/24/2023 172.72 cm 20.8 kg/m2 18185.15 g 108 mm[Hg] 70 mm[Hg] Denise Chan [facility] 4 16:18:58 Social History Question Answer Notes LastModified by Organizat ion Details LastModified Time Tobacco Smoking Status Never Smoker Melissa asencio [facility] 05/12/2015 09:07:00 What Is Your Level Of Alcohol Consumption? Occasional Information not available 12/04/2015 What Is The Highest Grade Or Level Of School You Have Completed Or The Highest Degree You Have Received? [id number] Information not available 10/18/2022 Does Your Partner Physically Hurt You Or Threaten To Hurt You? No [email or web address] Information not available 05/07/2019 Has Your Partner Forced You To Have Sex Or Perform Sex Acts When You Did Not Want To? No [email or web address] Information not available 05/07/2019 Does Your Partner Insult, Scream At Or Talk Down To You? No [email or web address] Information not available 05/07/2019 Does Your Partner Control You Or Any Part Of Your Life? No [email or web address] Information not available 05/07/2019 Are You Afraid Of Your Partner? No 10/24/23 Information not available 05/07/2019 Drug Use? No Information no t available 12/04/2015 Do You Feel Safe At Home? Yes Information not available 12/04/2015 What Was The Date Of Your Most Recent Tobacco Screening? 10/24/2023 [email or web address] Information not available 10/24/2023 Do You Feel Stressed (tense, Restless, Nervous, Or Anxious, Or Unable To Sleep At Night)? [id number] [email or web address] Information not available 07/10/2021 Have You Recently Traveled Abroad? No [email or web address] Information not available 10/24/2023 Sex: Female Functional Status Question Answer Note LastModified by Organizat ion Details LastModified Time What is your exercise level? Occasional Information not available 12/04/2015 Mental Status None recorded. Family History Relationship Description Onset Age of this Age Resolved Age Notes LastModified by Organization Details LastModified Time Paternal Aunt Malignant tumor of breast metast atic [email or web address] Not available 07/10/2021 11:36:43 Maternal Grandmother Malignant tumor of breast [email or web address] Not available 2015 11:02:24 Father Hypertensive disorder [email or web address] Not available 2019 20:44:08 Sister Malignant melanoma s/p wide local excisi on [email or web address] Not available 05/06/2019 20:44:03 Mother No current problems or disability [email or web address] Not available 10/23 15:30:22 Notes:No colon, uterus or ov brissa Medical History Condition Response Other N Kidney Stones N Breast Cancer N Blood clots N Benign breast disease N Colon cancer N Depression N Lung Disease N Defects or Inherited Disease N Anesthesia Complications N Neurological Disorder N Headaches/Migraines Y Have you ever been on isolation N Anxiety Disorder Y Arthritis N HSV N Infertility N Interstitial Cystitis N Acid Reflux (GERD) N Cancer N Stroke N Endometriosis N Fibromyalgia N Spina Bifida N HIV N Heart Problems N Sexual Dysfunction N Hypogonadism N Autoimmune disorder N Thyroid Problems N Kidney or Bladder Problems N GI Problems Y Eating Disorder N Anemia N Multiple Sclerosis N Psychiatric Illness N Ovarian Cancer N Diabetes N Blood Transfusions N Bladder disease N None reported by patient N History of MRSA N Abnormal Uterine Bleeding N Hyperlipidemia N BrCa positive N Diverticulitis N Abuse/Domestic Violence N Asthma N Bladder Cancer N Hepatitis N Hypertension N Osteoporosis N Thrombophilias N Gynecological History Statement/Question Response Abnormal Pap N Current Control Method Oral Contra ceptives Date of LMP 09/25/2023 Sexually Active? N IPV Screen Done 10/24/2023 STIs/STDs N HPV Vaccine Y Date of Last Pap Smear 10/18/2022 Age at Menarche 14 Last HPV Result Negative Obstetrics History GPAL:G 0 P 0 0 0 0 Past Encounters Encounter ID Performer Location Encounter Start Date Encounter Closed Date Diagnosis/Indication Diagnosis SNOMED-CT Code Diagnosis ICD10 Code Diagnosis Note [id number] [facility] [address] [place] [id number] 1 06/04/2012 00:00:00 [id number] [facility] [address] [place] [address] 1 03/12/2013 00:00:00 [id number] [facility] [address] [place] [address] 1 03/26/2013 00:00:00 [id number] [facility] [address] [place] [address] 1 05/18/2013 00:00:00 [id number] [facility] [address] [place] [id number] 1 05/21/2013 00:00:00 [id number] [facility] [address] [place] [id number] 1 05/11/2014 00:00:00 [id number] RJ KRISHNA MD [address] [place] [address] 05/12/2015 14:35:13 05/12/2015 16:33:20 Gynecologic examination [id number] Z01.795 [id number] IDANIA SALAZAR MD [facility] [place] [address] 12/04/2015 10:20:55 12/04/2015 11:09:33 Pruritus of vulva [id number] L29.2 25 yo female with vulvar itching/ir ritation, history of similar symptoms 3 years ago. Exam with visibile irritation and excoriatio n (small fissure by clitoral ventura). No significan t discharge. No distinct lesions or masses. Sureswab sent for full culture panel. Findings most c/w vulvar dermatitis , Clobetasol 0.05% sent to pharmacy. To apply BID x 1 week with vasoline covering. Lifestyle modificati ons reviewed. Will call with results. [id number] IDANIA SALAZAR MD [facility] ,[facility] [address] [place] [address] 12/15/2015 14:01:35 12/15/2015 14:25:22 Pruritus of vulva 42549579 L29.2 25 yo female vulvar dermatitis . No evidence of HSV, patient reassured. Negative SureSwab from previous visit. Had a reaction to either the Clobestaso l or (more likely) the all natural topical moisturize r she was using. Recommende d continuing with conservati ve treatment at this time > Vasoline 2x day, Sitz bathes, loose underwear / clothing, nothing to bed. Will reassess in one week. [id number] IDANIA SALAZAR MD [facility] ,[address] [place] [address] 04/11/2016 14:17:00 04/11/2016 15:02:06 Gynecologic examination [id number] Z01.411 Annual exam, c/o continued vaginal irritation , see below. Benign breast and HOPPER ATTENDANT exam. Pap with HPV reflex and cervical cultures obtained. Good to continue OCPs, refill x 1 year sent to pharmacy. Preventati ve measures discussed as above. RTO for annual or sooner as needed. Vaginal irritation [id number] [id number] N89.8 Patient continues to complain of intermitte nt vaginal irritation . Normal exam today. Again, extensivel y reviewed her potential exposure. Intermitte nt using the steroid cream, despite it making her symptoms worse over the summer. Instructed patient to return to office when lesions active for a biopsy, in agreement. [id number] IDANIA SALAZAR MD [facility] [place] [address] 04/25/2017 08:58:42 04/25/2017 09:38:41 Gynecologic examination [id number] Z01.419 Annual exam, no complaints . Benign breast and HOPPER ATTENDANT exam. Full examinatio n of vulva / perineum, no suspicious moles / lesions seen. Pap with HPV reflex and cervical cultures obtained. Good to continue OCPs, refill x 1 year sent to pharmacy. Preventati ve measures as discussed above. RTO for annual or sooner as needed. [id number] IDANIA SALAZAR MD [facility] [place] [address] 05/01/2018 09:18:19 05/01/2018 10:01:00 Gynecologic examination [id number] Z01.419 Annual exam, no complaints . Benign breast and HOPPER ATTENDANT exam. Pap with HPV reflex obtained. Good to continue OCPs, refill x 1 year sent to pharmacy. Preventati ve measures as discussed above. RTO for routine exam in 1 year or sooner as needed. [id number] IDANIA SALAZAR MD [facility] [place] [address] 05/07/2019 10:23:07 05/07/2019 11:26:14 Gynecologic examination 09100464 Z01.419 Annual exam > no complaints Benign breast and HOPPER ATTENDANT exam Pap with HPV reflex and cervical cultures obtained Good to continue OCPs > refill x 1 year sent to pharmacy Preventati ve measures discussed RTO for routine exam in 1 year or sooner as needed Screening for malignant neoplasm of cervix 988651538 Z12.4 Depression screening 171 032602 Z13.31 Behavioral health screening completed and reviewed with patient > negative findings [id number] IDANIA SALAZAR MD [facility] [place] [address] 05/12/2020 10:19:20 05/12/2020 12:15:24 Gynecologic examination 35792102 Z01.411 Annual exam > c/o LLQ pain and internal hemorrhoid Benign breast and HOPPER ATTENDANT exam Pap with HPV co-test and cervical cultures obtained OCPs for contracept ion / management of primary dysmenorrh ea > happy with choice, good to continue, refills x 1 year sent to pharmacy Negative IPV screening (no partner) Preventati ve measures discussed RTO for routine exam in 1 year or sooner as needed Screening for malignant neoplasm of cervix 999414465 Z12.4 Z11.3 Depression screening 171 441867 Z13.31 Behavioral health screening completed and reviewed with patient > negative findings External hemorrhoids 239 33650 K64.4 Patient c/o potential internal hemorrhoid Has been using Anusol without improvemen t Combinatio n rectal cream sent to pharmacy Plan to refer to GI if symptoms persist Pain in pelvis 94687593 R10.2 Patient with three months of mainly LLQ pain Known IBS with chronic diarrhea Extensive GI evaluation though has found no therapy that works to control her symptoms Will check TVUS to r/o HOPPER ATTENDANT etiology Patient in agreement [id number] IDANIA SALAZAR MD [facility] [place] [address] 06/16/2020 15:32:07 06/16/2020 16:59:56 Left lower quadrant pain 152091001 R10.32 30 yo G0 with known IBS-D presents for TVUS for further evaluation of LLQ pain x 3 months Normal ultrasound study Images reviewed with patient in detail Aware there is no HOPPER ATTENDANT etiology to her symptoms Recommend follow-up with GI Patient has had difficultl y finding a provider she feels listens to her concerns Will send consult to Dr. Taylor ce Support provided and all questions answered to the best of my ability [id number] IDANIA SALAZAR MD [facility] [place] [address] 07/10/2021 08:14:19 07/10/2021 09:06:02 Gynecologic examination 95781637 Z01.411 Annual exam > no complaints Benign breast and HOPPER ATTENDANT exam Pap deferred as negative last year > patient in agreementO CPs for management of dysmenorrh ea > happy with choice, good to continue, refill x 1 year sent to pharmacyNe gative IPV screening Preventati ve measures discussedR TO for routine exam in 1 year or sooner as needed Depression screening 171 881832 Z13.31 Behavioral health screening completed and reviewed with patient > negative findings [id number] IDANIA SALAZAR MD [facility] [place] [address] 10/18/2022 15:42:17 10/18/2022 16:31:35 Gynecologic examination 73614386 Z01.419 Annual exam > no complaints Benign breast and HOPPER ATTENDANT exam Pap with HPV reflex obtainedOC Ps for contracept ion / dysmenorrh ea > happy with choice, good to continue, refill x 1 year sent to pharmacyNe gative IPV screening Preventati ve measures discussedR TO for routine exam in 1 year or sooner as needed Screening for malignant neoplasm of cervix [id number] Z12.4 Depression screening 171 Z13.31 Behavioral health screening completed and reviewed with patient > negative findings [id number] IDANIA SALAZAR MD [facility] ,[address] [place] [address] 10/24/2023 15:27:10 10/24/2023 16:59:47 Gynecologic examination 32753536 Z01.419 Annual exam -- no complaints Benign breast and HOPPER ATTENDANT exam Pap -- deferred as negative last year, patient in agreementC ontracepti on -- satisfied with OCPs, good to continue, refill x 1 year sent to pharmacy Negative IPV screeningP reventativ e measures discussedR TO for routine exam in 1 year or sooner as needed Depression screening 171 Z13.31 Behavioral health screening completed and reviewed with patient -- negative findings Reproducti ve care management [id number] Z31.9 Currently single with no immediate plans for pregnancyD iscussed fertility changes with increasing ageDebatin g meeting with [facility] to discuss oocyte freezingPr ocess discussed and all questions answeredWi ll reach out if she desires referral Health Concerns Section Related Observation LastModified by Organization Detai ls LastModified Time None Recorded Concern Status LastModified by Organization Details LastModified Time None Recorded Advance Directives Directive None Recorded Payers Encounter Date Sequence Insurance Name Policy Number Policy Alvarado Covered Member ID Alvarado Member ID Guarantor Name 06/16/2020 1 [facility] [id number] Emilia Aldridge [id number] Emilia Aldridge 07/10/2021 1 [place] [id number] Emilia Aldridge [id number] Emilia Aldridge 10/18/2022 1 [place] [id number] Emilia Aldridge [id number] Emilia Aldridge 10/24/2023 1 [place] [id number] Emilia Aldridge [id number] Emilia Aldridge Notes Date Note Type Note Provider Name and Address Organization Details Recorded Time 05/12/2020 text/html [facility] Annual GYNReported bypatient.History:c/ o LLQ pain and hemorrhoids, see below Menstrual cycle:Normal menses Urinary symptoms:No hematuria; No incontinence Vulva:No genital lesion Vagina:Normal vaginal discharge Breast:No breast pain; No breast lump; No nipple discharge Sexual activity:sexually active no (> extended period of time) Psychological symptoms:No depression;Anxiety Preventive measures:Encourage self breast examination; Encourage regular exercise; Encourage no tobacco use; Followed with yearly pap smears (> as indicated); Safe sex practicesNotes:Happy with OCPs. Light menses during withdrawal pills (takes three packs continuously). No BTB. Excellent management of dysmenorrhea. Compliant with same time daily dosing. No worrisome side effects, would like to continue. Noted three months of mainly LLQ discomfort -- though symptoms can sometimes occur on the right. Characterized as tightness and cramping. No sharp pain. Symptoms do tend to worsen with bowel movement. Patient with known history of IBS-D and extensive work-up with GI. States nothing works to relieve her symptoms and uses imodium as needed. Patient also believes she has an internal hemorrhoid. Has been using Anusol over the counter without relief. IDANIA SALAZAR MD [address] [place] [address], [address], [place], [address], [place] [facility] 05/13/2020 16:35:04 06/16/2020 text/html 30 yo female wit h IBS-D presents for further evaluation of LLQ pain. See previous visit for detail. Negative cervical and vaginal cultures noted. TVUS obtained today with normal findings. RVRF uterus with thin EMS. No evidence of intracavitary lesions or fibroids. Normal adnexa. No masses or free fluid. IDANIA SALAZAR MD [address], [phone], [facility] 06/17/2020 23:32:07 07/10/2021 text/html [facility] Annual GYNReported bypatient.History:no gynecologic complaints; no change in interval history (-- continues to work with [employer]) Menstrual cycle:Normal menses Vulva:No genital lesion Vagina:Normal vaginal discharge Breast:No breast pain; No breast lump; No nipple discharge Current Contraception:Oral contraceptives Sexual activity:sexually active no (> extended period of time) Psychological symptoms:No depression;Anxiety Preventive measures:Encourage self breast examination; Encourage regular exercise; Encourage no tobacco use; Followed with yearly pap smears (> as indicated); Safe sex practices IDANIA SALAZAR MD [address] [place] [address], [phone], [facility] 07/10/2021 14:30:08 10/18/2022 text/html [facility] Annual GYNReported bypatient.History:no gynecologic complaints; no change in interval history Menstrual cycle:Normal menses Vulva:No genital lesion Vagina:Normal vaginal discharge Breast:No breast pain; No breast lump; No nipple discharge Current Contraception:Oral contraceptives Sexual activity:sexually active no Psychological symptoms:No depression;Anxiety Preventive measures:Encourage self breast examination; Encourage regular exercise; Encourage no tobacco use; Followed with yearly pap smears (> as indicated); Encourage regular mammograms starting age 40; Safe sex practices IDANIA SALAZAR MD [address] [place] [address], [phone], [facility] 10/31/2022 18:39:53 10/24/2023 text/html [facility] Annual GYNReported bypatient.History:no gynecologic complaints (-- started on Lexapro for anxiety, desires to discuss oocyte freezing) Menstrual cycle:Normal menses (-- extended cycle OCPs, no break through bleeding) Vulva:No genital lesion Vagina:Normal vaginal discharge Breast:No breast pain; No breast lump; No nipple discharge Current Contraception:Oral contraceptives Sexual activity:sexually active no Psychological symptoms:No depression;Anxiety Preventive measures:Encourage self breast examination; Encourage regular exercise; Encourage no tobacco use; Followed with yearly pap smears (-- as indicated); Encourage regular mammograms starting age 40; Safe sex practices IDANIA SALAZAR MD [address] [place] [address], [address], [place], [address], [place] - [facility] 10/29/2023 05:48:05 OBGyn Episode No OBEpisode recorded.
--- OUTSIDE RECORDS SUMMARY | 2024-06-09 06:54 | XMS_ITS | Clinical Summary ---
Author Organization [facility] Address [address] [place] [address] Care Team Providers Care Agate Setter Name Role Phone Brodie Campos MD Primary Care Provider Medications Desogestrel-Ethiny l Estradiol (Apri) 0.15-30 MG-MCG per tablet 84 0 12/07/2012 Active Dicyclomine HCl (BENTYL) 10 MG capsule 90 0 12/17/2012 Active Active Problems Problem Noted Date Diagnosed Date Sore throat 08/21/2015 Globus sensation 08/21/2015 Throat pain 08/21/2015 Referred ear pain 08/21/2015 Family History Medical History Relation Name Comments Allergies (med/food/envrnmt) Other Reported Allergies : Family History Asthma Other Asthma : Family History Cancer (?Type) Other Cancer : Fami ly History Diabetes Other Diabetes Mellit us : Family History Hypertension Other Hypertension : Family History Relation Name Status Comments Other Social History Tobacco Use Types Packs/Day Years Used Date Smoking Tobacco: Never Assessed Comments:Smoking Status:Neve r a smoker Comments Unknown Sex and Gender Information Value Date Recorded Sex Assigned at Not on file Legal Sex Female 11:08 PM EDT Gender Identity Not on file Sexual Orientation Not on file Last Filed Vital Signs Vital Sign Reading Time Taken Comments Blood Pressure 95/62 12/22/2012 4:03 PM EDT Pulse 66 12/22/2012 4:03 PM EDT Temperature - - Respiratory Rate - - Oxygen Saturation - - Inhaled Oxygen Concentration - - Weight 51.7 kg (114 lb) 12/22/2012 4:03 PM EDT Height 172.7 cm (5' 8 ) 12/22/2012 4:03 PM EDT Body Mass Index 17.33 12/22/2012 4:03 PM EDT Plan of Treatment Health Maintenance Due Date Last Done Comments Hepatitis C Screening 1990 Pap Smear 2006 DTaP/Tdap/Td (1 - Tdap) 01/26/2008 Hep B (1 of 3 - 19+ 3-dose series) 2009 COVID-19 Vaccine ( - 2023-2 5 season) 2024 Influenza (#1) 2024 Zoster (Shingrix) (1 of 2) 01/26/2040 HPV Vaccine Aged Out No longer eligi ble based on patient's age to complete this topic Hep A Aged Out No longer eligi ble based on patient's age to complete this topic Hib Aged Out No longer eligi ble based on patient's age to complete this topic Meningococcal ACWY Aged Out No longer eligible based on patient's age to complete this topic Pneumococcal Aged Out No longer eligi ble based on patient's age to complete this topic Care Teams Agate Setter Relationship Specialty Start Date End Date Brodie Campos MD [address] [place] [address] PCP - General 12/09/22
--- OUTSIDE RECORDS SUMMARY | 2024-06-09 06:54 | XMS_ITS | Clinical Summary ---
Author Organization [facility] [employer] Address [address] [place] [address] Care Team Providers Care Physician Aide Name Role Phone Elizabet Minor MD Primary Care Provider [phone] Allergies Active Allergy Reactions Criticality Noted Date Comments Dextroamphetamine-Amphetam ine Hives 11/12/2018 Latex, Natural Rubber Other (See Comments) 11/02 carrillo Silicone Other (See Comments) 11/12/2018 inflammation Medications oxcarbazepine (TRILEPTAL) 150 MG tablet Take 150 mg by mouth 2 (two) times a day. Active Social History Tobacco Use Types Packs/Day Years Used Date Smoking Tobacco: Never Smokeless Tobacco: Never Comments Unknown Sex and Gender Information Value Date Recorded Sex Assigned at Not on file Legal Sex Female 9:09 AM EDT Gender Identity Not on file Sexual Orientation Not on file Plan of Treatment Health Maintenance Due Date Last Done Comments Depression: Screening Annual ly using PHQ-2/9 in Adults 18 yrs or above (or HM Modifier)([facility]) 01/26/2008 Hepatitis C Virus Infection in Adolescents and Adults: Screening (or Modifier) ([facility]) 01/26/2008 [facility] Screening Reminder: Allison judd for all adults ([facility]) 01/26/2008 Tobacco Smoking Cessation: i n Adults excluding Women: Behavioral and Pharmacotherapy Interventions ([facility]) 01/26/2008 DTaP/Tdap/Td Vaccines ([facility]) (1 - Tdap) 2009 Cervical Cancer Screenin 1-65 yrs of age (or Modifier) 2011 Cervical Cancer Screening: P ap every 3 yrs pts age 21-65 2011 Cervical Cancer: Pap Screeni ng with Modifier timing ([facility]) 2011 Cervical Cancer: hrHPV alone or with cotesting Pap for Pts 30-65yrs screening every 5yrs ([facility]) 2011 Flu Vaccination: Yearly for ages 18mos through 64 years (or Modifier)([facility]) 12/04/2023 COVID-19 Vaccine Screening: Initial Series and Booster Status ([facility]) ( - 2023- season) 2024 Zoster/Shingles Vaccine Seri es Screening: Adults aged 18+ yrs (or HM Modifiers)([facility]) (1 of 2) 01/26/2040 Lipid Screening: Once for Wo men aged 20 to 45 yrs ([facility]) Completed 08/12/2016 Pneumococcal Vaccination Scr eening: Pts 0-19 & 19-64 yrs of age ([facility]) Aged Out No longer eligible b ased on patient's age to complete this topic [employer] Not on file [place] [address] [address] [place] [address] COMMERCIAL Care Teams Physician Aide Relationship Specialty Start Date End Date Elizabet Minor MD PCP - Skein Dyer 11/12/18
--- OUTSIDE RECORDS SUMMARY | 2024-06-09 06:54 | XMS_ITS | Clinical Summary ---
Author Organization [facility] Address [address] [place] [address] Care Team Providers Care Wood Barrel Reconditioner Name Role Phone RegogHarinder aguilar MD Unavailable [phone] Po, Yoni Rodriguez MD Primary Care Provider [phone] Allergies Active Allergy Reactions Criticality Noted Date Comments Amphetamine-Dextroamphe tamine Hives Medium 11/12/2018 Latex Itching Low 09/20/2020 Silicone Other (See Comments),Swelling Medium 11/12/2018 inflammation Medications Medication Sig Dispensed Refills Start Date End Date Status desogestrel-ethinyl estradiol (Apri) 0.15-30 MG-MCG per tablet Active ELDERBERRY PO Take by mouth. Active glycopyrrolate (ROBINUL) 2 MG tablet 03/19/2021 Act isauro hydrocortisone (ANUSOL-HC) 2.5 % rectal creamIndications:Hemo rrhoids, unspecified hemorrhoid type Insert into the rectum 3 (three) times a day as needed for hemorrhoids. 30 g 1 03/22/2021 Active ubrogepant (Ubrelvy) 100 MG tablet Take 100 mg by mouth once as needed for migraine. May repeat in 2 hours if unresolved. Do not exceed 200 mg in 24 hours. Active ALPRAZolam (XANAX) 0.25 MG tablet 12/06/2022 Active loperamide (IMODIUM A-D) 2 MG capsuleIndications:Ir ritable bowel syndrome with diarrhea TAKE 1 CAPSULE BY MOUTH 4 TIMES A DAY NEEDED FOR DIARRHEA. 90 capsule 3 05/08/2023 Active Active Problems Problem Noted Date Diagnosed Date Anxiety state 12/11/2022 12/11/2022 Dysmenorrhea 12/11/2022 12/11/2022 Irritable bowel syndrome with diarrhea 12/11/2022 Assessment & Plan (12/11/2022 2:40 PM EDT): She has done very well on loperamide generally taking 1 to 3 tablets/day. She does report some lower abdominal pain which can be severe occurring less than once per week. This seems to only occur if she is constipated. I did suggest utilizing squatty potty and visceral massage. She has tried multiple IBS meds in the past and she states she has not some fairly bad side effects from them. Currently she feels the pain is manageable. I also suggested that if she does not have a good bowel movement the day before to try to decrease the dose of the loperamide the following day to prevent constipation. 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 023 12/11/2022 Family History Medical History Relation Name Comments Hypertension Father Ezra Aldridge Diabetes Maternal Aunt Celeste Millard Stroke Maternal Grandfather Jamie Ezra Breast cancer Maternal Grandmother Peggy Munguia In R emission No Known Problems Mother Breast cancer Paternal Aunt 1 Breast cancer Paternal Aunt 2 Mary Carlson Passed nain y Diabetes Paternal Grandmother Bernie Aldridge Cancer, other Paternal Uncle 1 Cancer, other Paternal Uncle 2 Norman Aldridge Passed aw ay, brain cancer Cancer, other Sister 1 Cancer, other Sister 2 Salena Aldrideg In remissio n, stage 1 melenoma Relation Name Status Comments Father Ezra Aldridge Maternal Aunt Celeste Millard Maternal Grandfather Jamie Apodacach Maternal Grandmother Peggy Apodacach Mother Paternal Aunt 1 Paternal Aunt 2 Mary Carlson Paternal Grandmother Bernie Aldridge Paternal Uncle 1 Paternal Uncle 2 Norman Aldridge Sister 1 Sister 2 Salena Aldridge Social History Tobacco Use Types Packs/Day Years Used Date Smoking Tobacco: Never Smokeless Tobacco: Never Tobacco Cessation:Counseling Given: Not Answered Alcohol Use Standard Drinks/Week Comments Yes 2 (1 standard drink = 0.6 oz pur e alcohol) Drink socially 1 to 2 beers Sex and Gender Information Value Date Recorded Sex Assigned at Not on file Gender Identity Female 07/24/2020 4:38 PM EDT Sexual Orientation Heterosexual (straight) 07/24 4:38 PM EDT Last Filed Vital Signs Vital Sign Reading Time Taken Comments Blood Pressure 100/70 03/22/2021 11:25 AM EST Pulse 60 03/22/2021 11:25 AM EST Temperature 36.4 ??C (97.5 ??F) 03/22/2021 11:[address] Respiratory Rate - - Oxygen Saturation - - Inhaled Oxygen Concentration - - Weight 56.7 kg (125 lb) 12/11/2022 1:58 PM EDT Height 172.7 cm (5' 8 ) 12/11/2022 1:58 PM EDT Body Mass Index 19.01 12/11/2022 1:58 PM EDT Plan of Treatment Health Maintenance Due Date Last Done Comments Hepatitis C Virus Screening 1990 HIV Screening 2003 DTaP/Tdap/Td Vaccines (1 - Tdap) 2009 Hepatitis B Vaccines (1 of 3 - 19+ 3-dose series) 2009 Influenza Vaccine 12/04/2023 COVID-19 Vaccine ( - 2023-2 5 season) 2024 Pap Smear (Ages 21-65) 10/18/2025 3, 05/12/2020 HPV Vaccines Aged Out No longer eligi ble based on patient's age to complete this topic Pneumococcal Vaccine: Pediatric (0-5 Years) and At-Risk Patients (6 to 49 Years) Aged Out No longer eligible b ased on patient's age to complete this topic Procedures Procedure Name Priority Date/Time Associated Diagnosis Comments THINPREP PAP TEST (RIBBON BLOCKER) WITH HPV REFLEX Routine 10/18/2022 12:00 AM EDT from Last 3 Months or Most Recently Relevant to Health Maintenance Results * ThinPrep Pap Test (Dry Cleaning Checker) with HPV Reflex (10/18/2022 12:00 AM EDT) Report Report [facility] Comment: Final Gynecological Cytology Report ThinPrep Pap Test with HPV Reflex SPECIMEN ADEQUACY: SATISFACTORY FOR EVALUATION; ENDOCERVICAL/TRANSFORMATION ZONE COMPONENT PRESENT. INTERPRETATION: NEGATIVE FOR INTRAEPITHELIAL LESION OR MALIGNANCY. Electronically Signed: ??Johanna Ford CT (ASCP) CLINICAL INFORMATION: LMP: 07/03/2022 Clinical History: ??RTN Biopsy Date: ??NG Specimen Source: ??Cervix, Endocervix Previous Pap Date: ??NG CPT Codes: 11713 ICD Codes: Z12.4 Other 10/18/2022 10/21/2022 9:3 2 PM EDT Narrative [facility] - 10/23/2022 1:02 PM EDT [facility]PS Rebecca Salazar MD PATHOLOGY/CYTOLOGY ORDERABLES [facility] [address], [place] from Last 3 Months or Most Recently Relevant to Health Maintenance Care Teams Wood Barrel Reconditioner Relationship Specialty Start Date End Date Yoni Jimenez MD [address] [place] [address] [place] [address] PCP - General Internal Medicine 12/09/22 Harinder Edouard MD [address] [place] [address] Internal Medicine 07/25/20
--- OUTSIDE RECORDS SUMMARY | 2024-06-09 06:54 | XMS_ITS | Clinical Summary ---
Author Organization [facility] Address [address] [place] [address] Care Team Providers Care Supervisor Pig Machine Name Role Phone Elizabet Minor MD Primary Care Provider [phone] Social History Tobacco Use Types Packs/Day Years Used Date Smoking Tobacco: Unknown Alcohol Use Standard Drinks/Week Comments Yes 0 (1 standard drink = 0.6 oz pur e alcohol) Sex and Gender Information Value Date Recorded Sex Assigned at Not on file Gender Identity Not on file Sexual Orientation Not on file Obstetrics History Plan of Treatment Health Maintenance Due Date Last Done Comments DTaP,Tdap,and Td Vaccines (1 - Tdap) 2009 Hepatitis B Vaccines (1 of 3 - 19+ 3-dose series) 2009 Cervical Cancer Screening: P ap Smear 2011 COVID-19 Vaccine ( - 2023-2 5 season) 2024 Influenza Vaccine (#1) 2024 04/10/2018 HIB Vaccines Aged Out No longer eligi ble based on patient's age to complete this topic HPV Vaccines Aged Out No longer eligi ble based on patient's age to complete this topic Hepatitis A Vaccines Aged Out No long er eligible based on patient's age to complete this topic IPV Vaccines Aged Out No longer eligi ble based on patient's age to complete this topic MMR Vaccines Aged Out No longer eligi ble based on patient's age to complete this topic Meningococcal ACWY Vaccine Aged Out N o longer eligible based on patient's age to complete this topic Pneumococcal Vaccine: Pediat rics (0 to 5 Years) and At-Risk Patients (6 to 64 Years) Aged Out No longer eligi ble based on patient's age to complete this topic RSV Immunization Patients Un aureliano 20 months Aged Out No longer eligible b ased on patient's age to complete this topic Varicella Vaccines Aged Out No longer eligible based on patient's age to complete this topic Care Teams Supervisor Pig Machine Relationship Specialty Start Date End Date Elizabet Minor MD PCP - General Internal Medicine 04/21/18
[2024-06-09 08:35] LABS: Ferritin 48 ng/mL (10-122); Free T4 (Free Thyroxine) 0.93 ng/dL (0.71-1.85); Thyroid Stimulating Hormone 1.88 uIU/mL (0.32-4.0)
[2024-06-11 02:09] LABS: Triiodothyronine T3 Free 3.6 pg/mL (2.3-4.2)
[2024-06-11 05:48] LABS: Thyroglobulin Antibodies <1 IU/mL (< or = 1); Thyroid Peroxidase Antibodies <1 IU/mL (<9)
[2024-06-11 12:28] LABS: Immunoglobulin A 100 mg/dL (47-310)
[2024-06-11 15:28] LABS: Immunoglobulin G Subclass 1 404 mg/dL (382-929); Immunoglobulin G Subclass 2 451 mg/dL (241-700); Immunoglobulin G Subclass 3 27 mg/dL (22-178); Immunoglobulin G Subclass 4 44.7 mg/dL (4-86); Immunoglobulin G Total 918 mg/dL (600-1640)
== END 2024-06-09 06:52 | disposition home or self-care (01) ==
LOC: HO.LAB 06:51
PROVIDERS: PCP Internal Medicine; Visit Provider Family Medicine
DX: R53.83 Other fatigue (principal); K90.9 Intestinal malabsorption, unspecified
CPT/HCPCS: 36415; 82728; 82784; 84439; 84443; 84481; 86376; 86800

== ENCOUNTER 2024-07-19 12:54 | Outpatient (AMB) | payer OTHER, SELFPAY ==
--- NOTE | 2024-07-19 13:03 | A.OFFVIS_ITS ---
Vital Signs 07/19/24 13:05 07/19/24 13:09 Height 5 ft 8 in Weight 147 lb 11.355 oz BMI 22.5 BP 95/67 Blood Pressure Location Lt brachial Lt brachial Position Sitting Sitting Pulse 72 Intake Visit Reasons: 1 yr follow up IBS-D Intake Note: Emilia presents in the office as a 1 year follow up. CC: Insurance denied medication to treat her SIBO that she tested positive for. She states that they were going to put her on IBS medications and not treatment. She states that she has done so many treatments and nothing seems to be helping her. Folder Tier Required: No Allergies sumatriptan Allergy (Intermediate, Verified 07/19/24 13:06) burning sensation nose amphetamine [From Adderall] Adverse Reaction (Intermediate, Verified 07/19/24 13:06) Hives dextroamphetamine [From Adderall] Adverse Reaction (Intermediate, Verified 07/19/24 13:06) Hives HPI Comments Details: Emilia is 33 y.o F with [facility] who is here to establish care for IBS-D. Was diagnosed in 2007 for abd cramping and diarrhea. Prev used to get care at [facility] and before that Dr Edouard. Has trialed different IBS meds with side effects so now on Loperamide only. Currently, reports well controlled on imodium. Has may be 1 bad day in a week. Takes loperamide anywhere from 4-6mg per day. Also takes supplements including lions julieta, elderberry, ashwagandha, magnesium. Pt also noted to be on glycopyrrolate started by Communication Engineer. Does reduce loperamide when she take glycopyrrolate. 07/19/24: Here for routine follow up. BP on the softer side today but pt asymptomatic. No lightheadedness, dizziness, sweating reported. Got seen at [facility] and tested positive for SIBO. However tests reviewed and is actually postive for IMO - methane max at 12. starting at 4ppm. Otherwise, trying to cut down on loperamide had a few days where she did not have to take this at all. Was recommended rifaximin by outside office which did not get approved for insurance. Prev therapy tried: February 2018 - dorota only able to take it for 2 weeks and had to stop due to severe abd cramping and tenesmus. Does not think has tried bile acid sequestrants. PFSH Medical History Recurrent UTI UTI (urinary tract infection) Migraine Surgical History Hx of colonoscopy Hx of tonsillectomy Family History Mother No problems noted. Father Hypertension Sister Melanoma Paternal Aunt Breast cancer Paternal Uncle Brain cancer Maternal Grandmother Breast cancer Social History Household Members: None Housing: House Alcohol intake: current Alcohol intake frequency: holidays/special occasions only Comment: 1-2 /month - 1-2 drinks. 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 However the breath test is suggesting IMO ? inadvertent iveruse of loperamide. Reviewed recommendation for colon clean out whilst keeping a stool diary to see if that helps. Will also check stool test to r/o celiac, vs, ibd vs panc insufficiency. Other ddx include CSID, CVID. Plan: - Stool testing as below - Hold loperamide, colon clean out as above - Review stool diary at next visit to ascertain Abx for IMO/SIBO vs bile acid sequestrant for ibs-d Follow up 6 weeks Orders: Orders Fecal Fat Qualitative Today K52.9 - Noninfective gastroenteritis and colitis, unspecified, K58.9 - Irritable bowel syndrome, unspecified Transglutaminase IgA Today K58.9 - Irritable bowel syndrome, unspecified Immunoglobulin A Today K58.9 - Irritable bowel syndrome, unspecified Calprotectin, Fecal Today K58.9 - Irritable bowel syndrome, unspecified US abdomen complete Today K82.8 - Other specified diseases of gallbladder Pancreatic Elastase-1 Today K52.9 - Noninfective gastroenteritis and colitis, unspecified, K58.9 - Irritable bowel syndrome, unspecified Medications: New simethicone (Gas Relief (simethicone)) 80 mg PO BID-QID PRN 90 tabs 0RF abdominal distention Coding Level of Care Code Est Pt Level 4 (41563) Diagnoses Irritable bowel syndrome K58.9
[2024-07-19 13:05] VITALS: BP 95/67; PULSE 72; BMI 22.5
--- OUTSIDE RECORDS SUMMARY | 2024-07-19 15:01 | XMS_ITS | Clinical Summary ---
Author Organization [facility] Address [address] [place] [address] Care Team Providers Care Licensed Land Surveyor Name Role Phone RegogHarinder aguilar MD Unavailable [phone] Po, Yoni Rodriguez MD Primary Care Provider [phone] Allergies Active Allergy Reactions Criticality Noted Date [...] Sister 1 Cancer, other Sister 2 Salena Aldridge In remissio n, stage 1 melenoma Relation Name Status Comments Father Ezra Aldridge Maternal Aunt Celeste Millard Maternal Grandfather Jamie Apodacach Maternal Grandmother Peggy Apodacach Mother Paternal Aunt 1 Paternal Aunt 2 Mary Carlson Paternal Grandmother Bernie Aldrideg Paternal Uncle 1 Paternal Uncle 2 Norman [...] Date/Time Associated Diagnosis Comments THINPREP PAP TEST (TALENT ACQUISITION PARTNER) WITH HPV REFLEX Routine 10/18/2022 12:00 AM EDT from Last 3 Months or Most Recently Relevant to Health Maintenance Results * ThinPrep Pap Test (Glass Calibrator) with HPV Reflex (10/18/2022 12:00 AM EDT) [...] Endocervix Previous Pap Date: ??NG CPT Codes: 67156 ICD Codes: Z12.4 Other 10/18/2022 10/21/2022 9:3 2 PM EDT Narrative [facility] - 10/23/2022 1:02 PM EDT OCPS Rebecca Salazar MD LAB AMB PATH/CYTO O RDERABLES Performing Organization Address City/State/[facility] Co de Phone Number [facility] [address], [place] from Last 3 Months or Most Recently Relevant to Health Maintenance Care Teams Licensed Land Surveyor Relationship Specialty Start Date End Date Yoni Jimenez MD [address] [place] [address] [place] [address] PCP - General Internal Medicine 12/09/22 Harinder Edouard MD [address] [place] [address] Internal Medicine 07/25/20
--- OUTSIDE RECORDS SUMMARY | 2024-07-19 15:01 | XMS_ITS | Clinical Summary ---
Author Organization [facility] Address [address] [place] [address] Care Team Providers Care Radio Station Audio Engineer Name Role Phone Brodie Campos MD Primary [...] age to complete this topic Care Teams Radio Station Audio Engineer Relationship Specialty Start Date End Date Brodie Campos MD [address] [place] [address] PCP - General 12/09/22
--- OUTSIDE RECORDS SUMMARY | 2024-07-19 15:01 | XMS_ITS | Patient Health Record ---
Author Organization [facility] Address [address] [place] [address] Care Team Providers Care Stunt Woman Name Role Phone MARY CUELLAR Unavailable [phone] ALLERGIES Allergen (clinical drug ingredient) Drug/Non Drug Allergy documented on EMR Reaction Allergy Type Onset Date Status amphetamine aspartate / amphetamine sulfate / dextroamphetamine saccharate / dextroamphetamine sulfate aderall (uncoded) Unknown Allergy Active Latex Latex hives Allergy Active REASON FOR REFERRAL No Information MEDICATIONS Medication SIG (Take, Route, Fr equency, Duration) Notes Start Date End Date Status Apri 0.15-30 MG-MCG 1 tablet Orally Once a day for 28 day(s) Active Ubrelvy 100 MG 1 tablet may take se cond dose at least 2 hours after first dose as needed Orally Once a day for 30 day(s) 01/30/2021 Active Loperamide A-D Activ e Elderberry 500 MG as directed Orally Active IMMUNIZATIONS Vaccine Route Administration Date Status Comme nts influenza IM Intramuscular 01/30/2022 Administered SOCIAL HISTORY Tobacco Use: Social History Observation Description Date Details (start date - stop date) Never Smoker NA - NA Sex Assigned At : Social History Observation Description Sex Assigned At Unknown Tobacco Use/Smoking Question Answer Notes Are you a nonsmoker 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 PROBLEMS Problem Type ICD Code Onset Dates Problem Status W/U Status Risk SNOMED Code Notes Problem Hyperlipidemia, unspecified (E78.5) Active confirmed Hyperlipidemia (05848964) Problem Epilepsy, unspecified, intractable, without status epilepticus (G40.919) Active confirmed Problem Migraine with aura, intractable, without status migrainosus (G43.119) Active confirmed Refractory migraine with aura (632465191) Problem Other chronic pain (G89.29) Active confirmed 67838912 Problem Other allergic rhinitis (J30.89) Active confirmed Allergic r hinitis (70559637) Problem Paresthesia of skin (R20.2) Active confirmed Paresthesia (finding) (71312988) Problem Migraine without status migrainosus, not intractable, unspecified migraine type (G43.909) Active confirmed 14277893 Problem Anxiety (F41.9) Active confirmed Anxiet y (75029797) Problem Adult general medical exam (Z00.00) Active confirmed Adult health examination (217365019) Problem Irritable bowel syndrome, unspecified type (K58.9) Active confirmed 31449570 Problem Vitamin D deficiency (E55.9) Active confirmed Vitamin D deficiency (98255851) Problem Multiple allergies (Z88.9) Active confirmed 173880811 Problem Migraine with aura and without status migrainosus, not intractable (G43.109) Active confirmed Migraine with aura (2498100) Problem Combined hyperlipidemia (E78.2) Active confirmed Mixed hyperlipidemia (129075570) Problem Lumbar herniated disc (M51.26) Active confirmed 069569078 Problem Intractable migraine with status migrainosus, unspecified migraine type (G43.911) Active confirmed 784034774 Encounters Encounter Location Date Provider Diagnosis [facility] [address] [place] [address] 08/22/2023 MARY CUELLAR PLAN OF TREATMENT Pending Test Test Name Order Date Electroencephalography (EEG) 05/28/2018 Vitamin D, 25-Hydroxy 05/28/2018 ESR 06/21/2022 CBC (COMPLETE BLOOD COUNT) 05/28/2018 COMPREHENSIVE METABOLIC PANEL 05/28/2018 H. PYLORI UREA BREATH TEST 11/13/2020 HEMOGLOBIN A1C 05/28/2018 INSULIN, FREE 05/28/2018 LIPID PANEL 05/28/2018 TB CELLULAR BLOOD TEST (TSPOT) TRANSFERRIN 06/21/2022 TSH WITH REFLEX TO FT4 05/28/2018 CT Head w/o Contrast 05/28/2018 XR C-Spine 4+ Views 01/30/2022 IRON, TOTAL 06/21/2022 US Abdomen 09/10/2022 US Abdomen 01/22/2019 LYME AB SCREEN 06/21/2022 Insurance Providers Payer Name Payer Address Payer Phone Subscriber Number Group Number Insured Name Patient Relationship to Insured Coverage Start Date Coverage End Date [place] [address] [id number] [place] [id number] Emilia Aldridge Self - patient is the insured MEDICAL (GENERAL) HISTORY Medical History History ICD Code Migraine with aura, not intractable, wit h status migrainosus G43.101 Seizure R56.9 Chronic pain syndrome G89.4 Surgical History Surgery Date(Month/Year) tonsillectomy
--- OUTSIDE RECORDS SUMMARY | 2024-07-19 15:01 | XMS_ITS | Clinical Summary ---
Author Organization [facility] Address [address] [place] [address] Care Team Providers Care Virtual Assistant Name Role Phone Elizabet Minor MD Primary Care Provider [phone] Social History Tobacco Use Types Packs/Day Years Used Date Smoking Tobacco: Unknown Alcohol Use Standard Drinks/Week Comments Yes 0 (1 standard drink = 0.6 oz pur e alcohol) Comments Unknown Sex and Gender Information Value Date Recorded Sex Assigned at Not on file Legal Sex Female 10:59 AM EST Gender Identity Not on file Sexual Orientation Not on file Obstetrics History Plan of Treatment Health Maintenance Due Date Last Done Comments DTaP,Tdap,and Td Vaccines (1 - Tdap) 2009 Hepatitis B Vaccines (1 of 3 - 19+ 3-dose series) 2009 Cervical Cancer Screening: P ap Smear 2011 COVID-19 Vaccine (2023-2 5 season) 2024 Influenza Vaccine (#1) 2024 [...] patient's age to complete this topic Meningococcal B Vacine Aged Out No lo nger eligible based on patient's age to complete [...] age to complete this topic Care Teams Virtual Assistant Relationship Specialty Start Date End Date Elizabet Minor MD PCP - General Internal Medicine 04/21/18
--- OUTSIDE RECORDS SUMMARY | 2024-07-19 15:01 | XMS_ITS | Data Portability ---
Author Organization [place] - [facility], [facility] Address [address] [place] [address] Care Team Providers Care Content Development Manager Name Role Phone KAUR SANFORD Primary Care Provider Assessment No assessment recorded. 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 Idania Salazar Not available Not available Not available Lab urinalysi s, dipstick 2023 024 [email or web address] In-Office Order, Internal Use Only DO Not Attach Compendium DO Not Attach Compendium, Do Not Delete/merge, [id number] 10/24/2023 16:52:33 urinalysi s, dipstick 2022 023 [email or web address] In-Office Order, Internal Use Only DO Not Attach Compendium DO Not Attach Compendium, Do Not Delete/merge, [id number] 10/18/2022 16:33:45 pap, IG + reflex HPV - OCPs 2022 023 Replaced by [facility], [address] [place], [address] 10/23/2022 13:04:11 urinalysi s, dipstick 2021 022 [email or web address] In-Office Order, Internal Use Only DO Not Attach Compendium DO Not Attach Compendium, Do Not Delete/merge, [id number] 07/10/2021 08:57:10 urinalysi s, dipstick 2020 021 [email or web address] In-Office Order, Internal Use Only DO Not Attach Compendium DO Not Attach Compendium, Do Not Delete/merge, [id number] 05/12/2020 14:51:22 pap, IG + CT/NG + HR HPV + reflex HPV (16+18) - OCPs 2020 021 Replaced by [facility], [address] [place], [address] 05/17/2020 07:50:18 Referral gastroent erologist referral 2020 021 CHELSEA Danna Diehl MD, [address] [place], [address], 10/02/2020 18:26:12 Procedures None recorded. Surgeries None recorded. Imaging None recorded. Medication Orders Apri 0.15 mg-0.03 mg tablet 2023 024 [facility], [address] [place] [address], [address], 10/24/2023 16:52:33 Apri 0.15 mg-0.03 mg tablet 2022 023 [id number], [address] [place], [address], 10/18/2022 16:33:47 Apri 0.15 mg-0.03 mg tablet 2021 022 [id number], [address] [place], [address], 07/10/2021 08:57:12 hydrocort isone-pra moxine 2.5 %-1 % rectal cream 2020 021 [email or web address] [facility] #[id number], [address], [place], [address], 10/18/2022 15:58:26 Apri 0.15 mg-0.03 mg tablet 2020 021 INTERFACE [facility] #[id number], [address], [place], [address], 05/13/2020 16:34:37 Patient TargetsNo targets recorded. Patient Instructions Encounter Date Encounter Id Patient Instructions Last Modified By Organization Details Last Modified Time 05/12/2020 [id number] breast self-exam : care instructions [email or web address] Not available 05/12/2020 14:51:22 tips to help you stay healthy [email or web address] Not available 05/12/2020 14:51:22 07/10/2021 [id number] breast self-exam : care instructions [email or web address] Not available 07/10/2021 08:57:10 tips to help you stay healthy [email or web address] Not available 07/10/2021 08:57:10 10/18/2022 [id number] breast self-exam : care instructions [email or web address] Not available 10/18/2022 16:33:45 tips to help you stay healthy [email or web address] Not available 10/18/2022 16:33:45 10/24/2023 [id number] breast self-exam : care instructions [email or web address] Not available 10/24/2023 16:52:31 tips to help you stay healthy [email or web address] Not available 10/24/2023 16:52:31 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 INTER PRETA TION: NEGAT EVERETT FOR INTRA EPITH ELIAL FRANTZ Shaikh OR STARLA LOWRY . Tara sanchez obscu ring blood . Elect rowena Maki d: Taylor Burgos, [place] (ASCP ) ----- ----- ----- ----- ----- ----- ----- ----- ----- ----- ----- ----- CLINI SANDEEP INFOR LEÓN N: LMP: 03/24 Clini sandeep Histo ry: RTN Speci men Sourc e: Cervi x, Endoc ervix Previ ous Pap Date: 05/07 HPV RESUL TS: HPV mRNA E6/E7 [id number] [id number] Appro leandro: 05/14 Negat everett REF RANGE : Negat everett CPT Codes : 78303 ICD Codes : Z12.4 , Z11.3 Not Available [facility] [address] [place], [address] 05/17/2020 07:50:17 05/12/19 21 05/12/2020 chlam ydia sp DNA, unspe cifie d speci men chlamydia trachomatis RNA, tma Negati ve negati ve Not Available [facility] [address] [place], [address] 05/17/2020 07:50:21 05/12/19 21 05/12/2020 NG DNA, PCR, unspe cifie d speci men neisseria gonorrhoeae RNA, tma Negati ve negati ve Not Available [facility] [address] [place], [address] 05/17/2020 07:50:22 05/12/19 21 05/12/2020 urina lysis , dipst ick Leukocytes Trace Not Available In-Offi ce Order Internal Use Only DO Not Attach Compendium DO Not Attach Compendium, Do Not Delete/merge, [id number] 05/10/2020 21:41:41 05/12/19 21 05/12/2020 urina lysis , dipst ick Nitrite negati ve Not Available In-Office Order Internal Use Only DO Not Attach Compendium DO Not Attach Compendium, Do Not Delete/merge, [id number] 05/10/2020 21:41:41 05/12/19 21 05/12/2020 urina lysis , dipst ick Protein Trace Not Available In-Office Order Internal Use Only DO Not Attach Compendium DO Not Attach Compendium, Do Not Delete/merge, [id number] 05/10/2020 21:41:41 05/12/19 21 05/12/2020 urina lysis , dipst ick Glucose Negati ve Not Available In-Office Order Internal Use Only DO Not Attach Compendium DO Not Attach Compendium, Do Not Delete/merge, [id number] 05/10/2020 21:41:41 07/11/19 22 07/10/2021 urina lysis , dipst ick Leukocytes Trace Not Available In-Offi ce Order Internal Use Only DO Not Attach Compendium DO Not Attach Compendium, Do Not Delete/merge, [id number] 07/09/2021 09:21:36 07/11/19 22 07/10/2021 urina lysis , dipst ick Nitrite negati ve Not Available In-Office Order Internal Use Only DO Not Attach Compendium DO Not Attach Compendium, Do Not Delete/merge, [id number] 07/09/2021 09:21:36 07/11/19 22 07/10/2021 urina lysis , dipst ick Protein Trace Not Available In-Office Order Internal Use Only DO Not Attach Compendium DO Not Attach Compendium, Do Not Delete/merge, [id number] 07/09/2021 09:21:36 07/11/19 22 07/10/2021 urina lysis , dipst ick Glucose Negati ve Not Available In-Office Order Internal Use Only DO Not Attach Compendium DO Not Attach Compendium, Do Not Delete/merge, [id number] 07/09/2021 09:21:36 10/19/19 23 10/18/2022 THINP REP [...] ous Pap Date: NG CPT Codes : 22448 ICD Codes : Z12.4 Not Available [facility] [address] [place] [address], [address] 10/23/2022 13:04:10 10/19/19 23 10/18/2022 urina lysis , dipst ick Leukocytes Trace Not Available In-Offi ce Order Internal Use Only DO Not Attach Compendium DO Not Attach Compendium, Do Not Delete/merge, [id number] 10/16/2022 11:51:01 10/19/19 23 10/18/2022 urina lysis , dipst ick Nitrite negati ve Not Available In-Office Order Internal Use Only DO Not Attach Compendium DO Not Attach Compendium, Do Not Delete/merge, [id number] 10/16/2022 11:51:01 10/19/19 23 10/18/2022 urina lysis , dipst ick Protein Trace Not Available In-Office Order Internal Use Only DO Not Attach Compendium DO Not Attach Compendium, Do Not Delete/merge, [id number] 10/16/2022 11:51:01 10/19/19 23 10/18/2022 urina lysis , dipst ick Glucose Negati ve Not Available In-Office Order Internal Use Only DO Not Attach Compendium DO Not Attach Compendium, Do Not Delete/merge, [id number] 10/16/2022 11:51:01 10/24/19 24 10/24/2023 urina lysis , dipst ick Leukocytes Negati ve Not Available In-Office Order Internal Use Only DO Not Attach Compendium DO Not Attach Compendium, Do Not Delete/merge, [id number] 09/30/2023 15:05:52 10/24/19 24 10/24/2023 urina lysis , dipst ick Nitrite negati ve Not Available In-Office Order Internal Use Only DO Not Attach Compendium DO Not Attach Compendium, Do Not Delete/merge, [id number] 09/30/2023 15:05:52 10/24/19 24 10/24/2023 urina lysis , dipst ick Protein Trace Not Available In-Office Order Internal Use Only DO Not Attach Compendium DO Not Attach Compendium, Do Not Delete/merge, 09/30/2023 15:05:52 10/24/19 24 10/24/2023 urina lysis , dipst ick Glucose Negati ve Not Available In-Office Order Internal Use Only DO Not Attach Compendium DO Not Attach Compendium, Do Not Delete/merge, [id number] 09/30/2023 15:05:52 06/16/19 21 06/16/2020 US, pelvi s, trans abdom inal + trans vagin al RAD DBA_PATCH_ [id number] [address] [facility] [address] [facility] [address], [place], [address], 11/16/2020 05:00:27 06/16/19 21 06/16/2020 US, unlis santy RAD kmacomber [facility] [address] [facility] [address], [place], [address], 06/18/2020 11:26:35 Result Notes None recorded. 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 807386786 Active 2019 unclear diagnosi s -- positive EEG, then negative EEG, poor toleranc e of anti-epi leptic meds, off all meds IDANIA SALAZAR MD [address], [address] [place] [address] , [facility] 4 05:40:18 Irritabl e bowel syndrome 82011317 Completed 202005/13/2020 IDANIA SALAZAR MD [address], [address] [place] [address] , [facility] 1 16:26:05 Irritabl e bowel syndrome with diarrhea 493388062 Active 2020 imodium, unable to julissa amitript yline // JROSA SALAZAR MD [address], [address] , [facility] 4 05:40:47 Sweating 316470704 Active 2021 glycopyr rolate // dermatol ogy IDANIA SALAZAR MD [address], [address] [place] [address], [address] , [facility] 4 05:40:43 Dysmenor giuseppe 956995295 Active OCPs Not Available [facility] 2 10:37:13 Problem Notes None recorded. Procedures Surgical History Date Name Laterality Status Provider Name and Address Organization Details Recorded Time 10/19/19 23 Date of Last Pap Smear completed IDANIA SALAZAR MD 175 [facility], [address] [place] [address], [address] [place] [address], [facility] 10/31/2022 18:37:48 04/11/20 16 I7Y-DYH completed IDANIA SALAZAR MD 175 [facility], [address] [place] [address], [address] [place] [address], [facility] 04/13/2016 11:48:07 04/11/20 16 P1G-[id number] completed IDANIA SALAZAR MD 175 [facility], [address] [place] [address], [address] [place] [address], [facility] 04/13/2016 11:48:18 04/11/20 16 M1R-UGSQSYJ completed IDANIA SALAZAR MD 175 [facility], [address] [place] [address], [address] [place] [address], [facility] 04/13/2016 11:47:57 04/11/20 16 Z0G-WNVWGKZX completed IDANIA SALAZAR MD 175 [facility], [address] [place] [address], [address] [place] [address], [facility] 04/13/2016 11:48:02 12/04/19 16 W5Y-KWVFSJE completed IDANIA SALAZAR MD 175 [facility], [address] [place] [address], [address] [place] [address], [facility] 12/04/2015 11:11:20 12/04/19 16 B2K-[id number] completed IDANIA SALAZAR MD 175 [facility], [address] [place] [address], [address], [facility] 12/04/2015 11:11:20 05/05/19 13 Tonsillectomy completed IDANIA SALAZAR MD [address], [address], [facility] 10/18/2022 16:03:09 Imaging Results Imaging Date Name Status LastModified by Organization Details LastModified Time 06/16/2020 US, pelvis, transabdominal + transvaginal completed DBA_PATCH_ [address], [place], [address], 11/16/2020 05:00:27 06/16/2020 US, unlisted completed [email or web address] [address], [place], [address], 06/18/2020 11:26:35 Procedure Notes None recorded. Medical Equipment None Reported. Allergies Allergen ID Allergen Name Allergen Category Reaction Reaction Severity Criticality Documentation Date Start Date Code Code System Note Provider Name and Address Organization Details Recorded Time 744611 Silicone (substanc e) environme nt,medica tion Not available Not available Not available 10/04/20142012 25321 007 SNOMED IDANIA SALAZAR MD [address], [address], [facility] 6 11:02:09 783621 latex environme nt,medica tion Not available Not available Not available 10/04/2014 98849 91 RxNorm IDANIA SALAZAR MD 175 [facility], [address] [place] [address], [address], [facility] 6 11:24:32 Medications Name Sig Start Date [...] Updated DateTime 05/12/2020 172.72 cm Landon Singh [facility] 05/12/2020 10:31:11 Date Recorded Body mass index (BMI) Body weight Systolic blood pressure Diastolic blood pressure Provider Name and Address Organization Details Last Updated DateTime 05/12/2020 20.1 kg/m2 81667.19 g 100 mm[Hg] 60 mm[Hg] Margot Doherty [facility] 05/12/2020 11:05:56 Date Recorded Body height Body mass index (BMI) Body weight Systolic blood pressure Diastolic blood pressure Provider Name and Address Organization Details Last Updated DateTime 07/10/2021 172.72 cm 19.2 kg/m2 20072.64 g 104 mm[Hg] 62 mm[Hg] Margot Doherty [facility] 2 08:34:06 Date Recorded Body weight Body mass index (BMI) Body height Systolic blood pressure Diastolic blood pressure Provider Name and Address Organization Details Last Updated DateTime 10/18/2022 52436.6 g 19.9 kg/m2 172.72 cm 110 mm[Hg] 78 mm[Hg] Fadumo Elder [facility] 3 15:57:44 Date Recorded Body height Body mass index (BMI) Body weight Systolic blood pressure Diastolic blood pressure Provider Name and Address Organization Details Last Updated DateTime 10/24/2023 172.72 cm 20.8 kg/m2 89659.15 g 108 mm[Hg] 70 mm[Hg] Denise Chan [facility] 4 16:18:58 Social History Question Answer Notes LastModified by Organizat ion Details LastModified Time Tobacco Smoking Status Never Smoker Melissa asencio [facility] 05/12/2015 09:07:00 What Is Your Level Of Alcohol Consumption? Occasional Information not available 12/04/2015 What Is The Highest Grade Or Level Of School You Have Completed Or The Highest Degree You Have Received? [id number] Information not available 10/18/2022 Does Your Partner Physically Hurt You Or Threaten To Hurt You? No [email or web address] Information not available 05/07/2019 Has Your Partner Forced You To Have Sex Or Perform Sex Acts When You Did Not Want To? No [email or web address] Information not available 05/07/2019 Does Your Partner Insult, Scream At Or Talk Down To You? No Information not available 05/07/2019 Does Your Partner Control You Or Any Part Of Your Life? No Information not available 05/07/2019 Are You Afraid Of Your Partner? No 10/24/23 [email or web address] Information not available 05/07/2019 Drug Use? No Information no t available 12/04/2015 Do You Feel Safe At Home? Yes Information not available 12/04/2015 What Was The Date Of Your Most Recent Tobacco Screening? 10/24/2023 [email or web address] Information not available 10/24/2023 Do You Feel Stressed (tense, Restless, Nervous, Or Anxious, Or Unable To Sleep At Night)? [id number] [email or web address] Information not available 07/10/2021 Have You Recently Traveled Abroad? No [email or web address] Information not available 10/24/2023 Sex: Female Functional [...] Not available 2015 11:02:24 Father Hypertensive disorder [email or web address] Not available 2019 20:44:08 Sister Malignant melanoma s/p wide local excisi on [email or web address] Not available 05/06/2019 20:44:03 Mother No current problems or disability Not available 10/23 15:30:22 Notes:No colon, uterus or ov brissa Medical History Condition Response Other N Kidney Stones N Breast Cancer N Blood clots N Colon cancer N Benign breast disease N Depression N Lung Disease N Defects or Inherited Disease N Anesthesia Complications N Headaches/Migraines Y Neurological Disorder N Have you ever been on isolation N Anxiety Disorder Y HSV N Arthritis N Infertility N Interstitial Cystitis N Acid Reflux (GERD) N Cancer N Stroke N Endometriosis N Fibromyalgia N Spina Bifida N HIV N Heart Problems N Sexual Dysfunction N Hypogonadism N Autoimmune disorder N Thyroid Problems N Kidney or Bladder Problems N GI Problems Y Eating Disorder N Anemia N Multiple Sclerosis N Psychiatric Illness N Diabetes N Ovarian Cancer N Blood Transfusions N Bladder disease N History of MRSA N None reported by patient N Abnormal Uterine Bleeding N Hyperlipidemia N BrCa positive N Abuse/Domestic Violence N Diverticulitis N Asthma N Bladder Cancer N Hepatitis [...] SNOMED-CT Code Diagnosis ICD10 Code Diagnosis Note [id number] [facility] [address] [place] [address] 06/04/2012 00:00:00 [id number] [facility] [address] [place] [address] 03/12/2013 00:00:00 [id number] [facility] [address] [place] [address] 03/26/2013 00:00:00 [id number] [facility] [address] [place] [address] 05/18/2013 00:00:00 [id number] [facility] [address] [place] [address] 05/21/2013 00:00:00 [id number] [facility] [address] [place] [address] 05/11/2014 00:00:00 [id number] RJ KRISHNA MD [address] [place] [address] 05/12/2015 14:35:13 05/12/2015 16:33:20 Gynecologic examination 38527657 Z01.705 [id number] IDANIA SALAZAR MD [address] [place] [address] 12/04/2015 10:20:55 12/04/2015 11:09:33 Pruritus of vulva 90073475 L29.2 25 yo female with vulvar itching/ir [...] modificati ons reviewed. Will call with results. [id number] IDANIA SALAZAR MD [facility] [address] [place] [address] 12/15/2015 14:01:35 12/15/2015 14:25:22 Pruritus of vulva 48741753 L29.2 25 yo female vulvar dermatitis . [...] to bed. Will reassess in one week. [id number] IDANIA SALAZAR MD [facility] [place] [address] 04/11/2016 14:17:00 04/11/2016 15:02:06 Gynecologic examination 20418722 Z01.411 Annual exam, c/o continued vaginal irritation , see below. 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 Pap with HPV reflex and cervical cultures obtained. Good to continue OCPs, refill x 1 year sent to pharmacy. Preventati ve measures discussed as above. RTO for annual or sooner as needed. Vaginal irritation 94601 6004 N89.8 Patient continues to complain of intermitte nt vaginal irritation . Normal exam today. Again, extensivel y reviewed her potential exposure. Intermitte nt using the steroid cream, despite it making her symptoms worse over the summer. Instructed patient to return to office when lesions active for a biopsy, in agreement. [id number] IDANIA SALAZAR MD [facility] [place] [address] 04/25/2017 08:58:42 04/25/2017 09:38:41 Gynecologic examination 56407428 Z01.419 Annual exam, no complaints . 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 Full examinatio n of vulva / perineum, no suspicious moles / lesions seen. Pap with HPV reflex and cervical cultures obtained. Good to continue OCPs, refill x 1 year sent to pharmacy. Preventati ve measures as discussed above. RTO for annual or sooner as needed. [id number] IDANIA SALAZAR MD [facility] [place] [address] 05/01/2018 09:18:19 05/01/2018 10:01:00 Gynecologic examination 58811084 Z01.419 Annual exam, no complaints . 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 Pap with HPV reflex obtained. Good to continue OCPs, refill x 1 year sent to pharmacy. Preventati ve measures as discussed above. RTO for routine exam in 1 year or sooner as needed. [id number] IDANIA SALAZAR MD [facility] [place] [address] 05/07/2019 10:23:07 05/07/2019 11:26:14 Gynecologic examination 99036859 Z01.419 Annual exam > no complaints Benign breast and HEADLIGHT ASSEMBLER exam Pap with HPV reflex and cervical cultures obtained Good to continue OCPs > refill x 1 year sent to pharmacy Preventati ve measures discussed RTO for routine exam in 1 year or sooner as needed Screening for malignant neoplasm of cervix 353841562 Z12.4 Depression screening 171 991437 Z13.31 Behavioral health screening completed and reviewed with patient > negative findings [id number] IDANIA SALAZAR MD [facility] [place] [address] 05/12/2020 10:19:20 05/12/2020 12:15:24 Gynecologic examination 56864560 Z01.411 Annual exam > c/o LLQ pain and internal hemorrhoid Benign breast and HEADLIGHT ASSEMBLER exam Pap with HPV co-test and cervical cultures obtained OCPs for contracept ion / management of primary dysmenorrh ea > happy with choice, good to continue, refills x 1 year sent to pharmacy Negative IPV screening (no partner) Preventati ve measures discussed RTO for routine exam in 1 year or sooner as needed Screening for malignant neoplasm of cervix 563881579 Z12.4 Z11.3 Depression screening 171 655388 Z13.31 Behavioral health screening completed and reviewed with patient > negative findings External hemorrhoids 239 82891 K64.4 Patient c/o potential internal hemorrhoid Has been using Anusol without improvemen t Combinatio n rectal cream sent to pharmacy Plan to refer to GI if symptoms persist Pain in pelvis 46731738 R10.2 Patient with three months of mainly LLQ pain Known IBS with chronic diarrhea Extensive GI evaluation though has found no therapy that works to control her symptoms Will check TVUS to r/o HEADLIGHT ASSEMBLER etiology Patient in agreement [id number] IDANIA SALAZAR MD [facility] [place] [address] 06/16/2020 15:32:07 06/16/2020 16:59:56 Left lower quadrant pain 551123823 R10.32 30 yo G0 with known IBS-D presents for TVUS for further evaluation of LLQ pain x 3 months Normal ultrasound study Images reviewed with patient in detail Aware there is no HEADLIGHT ASSEMBLER etiology to her symptoms Recommend follow-up with GI Patient has had difficultl y finding a provider she feels listens to her concerns Will send consult to Dr. Taylor ce Support provided and all questions answered to the best of my ability [id number] IDANIA SALAZAR MD [facility] [place] [address] 07/10/2021 08:14:19 07/10/2021 09:06:02 Gynecologic examination 29025065 Z01.411 Annual exam > no complaints Benign breast and HEADLIGHT ASSEMBLER exam Pap deferred as negative last year > patient in agreementO CPs for management of dysmenorrh ea > happy with choice, good to continue, refill x 1 year sent to pharmacyNe gative IPV screening Preventati ve measures discussedR TO for routine exam in 1 year or sooner as needed Depression screening 171 140588 Z13.31 Behavioral health screening completed and reviewed with patient > negative findings [id number] IDANIA SALAZAR MD [facility] [place] [address] 10/18/2022 15:42:17 10/18/2022 16:31:35 Gynecologic examination 91546953 Z01.419 Annual exam > no complaints Benign breast and HEADLIGHT ASSEMBLER exam Pap with HPV reflex obtainedOC Ps for contracept ion / dysmenorrh ea > happy with choice, good to continue, refill x 1 year sent to pharmacyNe gative IPV screening Preventati ve measures discussedR TO for routine exam in 1 year or sooner as needed Screening for malignant neoplasm of cervix 133067565 Z12.4 Depression screening 171 Z13.31 Behavioral health screening completed and reviewed with patient > negative findings [id number] IDANIA SALAZAR MD [facility] [place] [address] 10/24/2023 15:27:10 10/24/2023 16:59:47 Gynecologic examination 23052061 Z01.419 Annual exam -- no complaints Benign breast and HEADLIGHT ASSEMBLER exam Pap -- deferred as negative last [...] -- negative findings Reproducti ve care management [id number] Z31.9 Currently single with no immediate plans [...] Alvarado Member ID Guarantor Name 06/16/2020 1 [facility] ([facility] [id number] Emilia Aldridge [id number] Emilia Aldridge 07/10/2021 1 [place] [id number] Emilia Aldridge [id number] Emilia Aldridge 10/18/2022 1 [place] [id number] Emilia Aldridge [id number] Emilia Aldridge 10/24/2023 1 [place] [id number] Emilia Aldridge [id number] Emilia Aldridge Notes Date Note Type Note Provider Name and Address Organization Details Recorded Time 05/12/2020 text/html [facility] Annual GYNReported bypatient.History:c/ o LLQ [...] the counter without relief. IDANIA SALAZAR MD [address] [place] [address], [address] Floor, [place], [address], [place] [facility] 05/13/2020 16:35:04 06/16/2020 text/html 30 yo female wit h IBS-D presents for further evaluation of LLQ pain. See previous visit for detail. Negative cervical and vaginal cultures noted. TVUS obtained today with normal findings. RVRF uterus with thin EMS. No evidence of intracavitary lesions or fibroids. Normal adnexa. No masses or free fluid. IDANIA SALAZAR MD [address], [address], [facility] 06/17/2020 23:32:07 07/10/2021 text/html [facility] Annual GYNReported bypatient.History:no gynecologic complaints; no change in interval history (-- continues to work with [employer]) Menstrual cycle:Normal menses Vulva:No genital lesion Vagina:Normal vaginal discharge Breast:No breast pain; No breast lump; No nipple discharge Current Contraception:Oral contraceptives Sexual activity:sexually active no (> extended period of time) Psychological symptoms:No depression;Anxiety Preventive measures:Encourage self breast examination; Encourage regular exercise; Encourage no tobacco use; Followed with yearly pap smears (> as indicated); Safe sex practices IDANIA SALAZAR MD [address] [place] [address], [phone], [facility] 07/10/2021 14:30:08 10/18/2022 text/html [facility] Annual GYNReported bypatient.History:no gynecologic complaints; [...] 40; Safe sex practices IDANIA SALAZAR MD [address] [place] [address], [phone], [facility] 10/31/2022 18:39:53 10/24/2023 text/html [facility] Annual GYNReported bypatient.History:no gynecologic complaints [...] Safe sex practices IDANIA SALAZAR MD [address] [place] [address], [address] Floor, [place], [address], [place] [facility] 10/29/2023 05:48:05 OBGyn Episode No OBEpisode recorded.
--- OUTSIDE RECORDS SUMMARY | 2024-07-19 15:01 | XMS_ITS ---
Author Organization [facility] Address [address] [place] [address] Care Team Providers Care Profile Shaper Operator Name Role Phone MARY CUELLAR Unavailable [phone] REASON FOR VISIT Ubrevly Encounters Encounter Location Date Provider Diagnosis [facility] [address] [place] [address] 08/22/2023 MARY CUELLAR PLAN OF TREATMENT No Information Progress Notes * Karolyn ALDRIDGEOB:1990 (33 yo F)Acc No.[id number]:08/22/2023 Patient:??Emilia ALDRIDGE :1990?Age:33 Y?Sex:Fe male Address:[address] [place] [address] * true * Date:??
--- OUTSIDE RECORDS SUMMARY | 2024-07-19 15:01 | XMS_ITS ---
Author Organization [facility] Address [address] [place] [address] Care Team Providers Care Movie Theater Manager Name Role Phone ALISA MARY Unavailable [phone] Encounters Encounter Location Date Provider Diagnosis [facility] [address] [place] [address] 03/13/2023 MARY CUELLAR PLAN OF TREATMENT No Information Progress Notes * Sathya ALDRIDGEArmandoOB:1990 (34 yo F)Acc No.[id number]:03/13/2023 Progress Notes Patient:??Emilia ALDRIDGE Provider:??MARY CUELLAR PA-C :1990?Age:33 Y?Sex:Fe male Date:03/13/2023 Address:[address] [place], [place] [id number] Subjective: * Chief Complaints: * ? * Medical History:?? Objective: Assessment: Plan: * Treatment: * Images: Billing Information: * Visit Code:?? * Procedure Codes:?? Care Plan Details* * Sign off status: Pending * Provider:??MARY CUELLAR PA-C Date:??01/2023
== END 2024-07-19 13:56 | disposition home or self-care (01) ==
LOC: HO.HGI 12:55
PROVIDERS: PCP Internal Medicine; Visit Provider Internal Medicine
DX: K58.9 Irritable bowel syndrome, unspecified (principal)
CPT/HCPCS: 99214

== ENCOUNTER 2024-09-07 07:48 | Outpatient (REF) | payer OTHER, SELFPAY ==
--- NOTE | ~2024-09-07 | US_ITS ---
EXAMINATION: US ABDOMEN LIMITED HISTORY: K82.8 - Other specified diseases of gallbladder TECHNIQUE: Real-time grayscale ultrasound imaging of the right upper quadrant was performed and images were reviewed. COMPARISON: Comparison is made with the prior examination dated 09/27/2022. FINDINGS: Liver: The liver is normal in size. The liver demonstrates normal homogeneous echotexture. No focal mass or intrahepatic biliary ductal dilatation is identified. There is normal hepatopedal flow in the portal vein. Gallbladder and biliary tree: The gallbladder is unremarkable, without evidence of calculi, wall thickening, or pericholecystic fluid. There is no sonographic Pitts sign. The common bile duct is normal in caliber measuring 5 mm. Right Kidney: The right kidney measures 11.3 cm in length. The right kidney is unremarkable, without evidence of masses, hydronephrosis, or calculi. Pancreas: The pancreatic head, neck, and body are unremarkable. The pancreatic tail is obscured by bowel gas. Abdominal aorta and inferior vena cava: The visualized portions of the abdominal aorta and inferior vena cava are normal in caliber. There is no free fluid in the right upper quadrant. US/US abdomen limited IMPRESSION: Unremarkable right upper quadrant ultrasound. Electronically signed by: Jamie Keane MD 09/07/2024 08:34 AM EDT
--- OUTSIDE RECORDS SUMMARY | 2024-09-07 07:50 | XMS_ITS | Clinical Summary ---
Author Organization [facility] [employer] Address [address] [facility] [place] [address] Care Team Providers Care Disease Case Manager Rn Name Role Phone Elizabet Minor MD Primary Care Provider Allergies Active Allergy Reactions Criticality Noted Date [...] Adults 18 yrs or above (or HM Modifier)([facility]) 01/26/2008 Hepatitis C Virus Infection in Adolescents and Adults: Screening (or Modifier) ([facility]) 01/26/2008 SDOH Screening Reminder: Allison judd for all adults ([facility]) 01/26/2008 Tobacco Smoking Cessation: i n Adults excluding Women: Behavioral and Pharmacotherapy Interventions ([facility]) 01/26/2008 DTaP/Tdap/Td Vaccines ([facility]) (1 - Tdap) 2009 Cervical Cancer Screenin 1-65 yrs of age (or Modifier) 2011 Cervical Cancer Screening: P ap every 3 yrs pts age 21-65 2011 Cervical Cancer: Pap Screeni ng with Modifier timing ([facility]) 2011 Cervical Cancer: hrHPV alone or with cotesting Pap for Pts 30-65yrs screening every 5yrs ([facility]) 2011 COVID-19 Vaccine Screening: Initial Series and Booster Status ([facility]) (2023- season) 2024 Flu Vaccination: Yearly for ages 18mos through 64 years (or Modifier)([facility]) 12/03/2024 Zoster/Shingles Vaccine Seri es Screening: Adults aged 18+ yrs (or HM Modifiers)([facility]) (1 of 2) 01/26/2040 Lipid Screening: Once for Wo men aged 20 to 45 yrs ([facility]) Completed 08/12/2016 Pneumococcal Vaccination Scr eening: Pts 0-19 & 19-49 yrs of age ([facility]) Aged Out No longer eligible b ased on patient's age to complete this topic Medical Devices Not on file [place] [address] COMMERCIAL Care Teams Disease Case Manager Rn Relationship Specialty Start Date End Date Elizabet Minor MD PCP - Mold Repair Technician 11/12/18
--- OUTSIDE RECORDS SUMMARY | 2024-09-07 07:50 | XMS_ITS | Clinical Summary ---
Author Organization [facility] Address [address] [place] [address] Care Team Providers Care Assistant Paralegal Name Role Phone Elizabet Minor MD Primary [...] age to complete this topic Care Teams Assistant Paralegal Relationship Specialty Start Date End Date Elizabet Minor MD [address] [place] [address] PCP - General Internal Medicine 04/21/18
--- OUTSIDE RECORDS SUMMARY | 2024-09-07 07:50 | XMS_ITS ---
Author Organization [facility] Address [address] [place] [address] Care Team Providers Care Warehouse Shipping Receiving Clerk Name Role Phone MARY BAINS Unavailable [phone] Encounters Encounter Location Date Provider Diagnosis [facility] [address] [place] [address] 03/13/2023 MARY BAINS PLAN OF TREATMENT No Information Progress Notes * Karolyn RAMIREZOB:1990 (34 yo F)Acc No.[id number]:03/13/2023 Progress Notes Patient:??Emilia RAMIREZ Provider:??MARY CUELLAR PA-C :1990?Age:33 Y?Sex:Fe male Date:03/13/2023 Address:[address] [place], [place] [id number] Subjective: * Chief Complaints: * ? * Medical History:?? Objective: Assessment: Plan: * Treatment: * Images: Billing Information: * Visit Code:?? * Procedure Codes:?? Care Plan Details* * Sign off status: Pending * Provider:??MARY CUELLAR PA-C Date:??01/2023
--- OUTSIDE RECORDS SUMMARY | 2024-09-07 07:50 | XMS_ITS | Clinical Summary ---
Author Organization [facility] Address [address] [place] [address] Care Team Providers Care Topographical Engineer Name Role Phone Brodie Campos MD Primary Care Provider [phone] Medications Desogestrel-Ethiny l Estradiol (Apri) 0.15-30 MG-MCG [...] - 19+ 3-dose series) 2009 COVID-19 Vaccine (1 - 2023-2 5 season) 2024 Influenza (Season Ended) 2025 Zoster (Shingrix) (1 of 2) 01/26/2040 HPV [...] age to complete this topic Care Teams Topographical Engineer Relationship Specialty Start Date End Date Brodie Campos MD [address] [place] [address] PCP - General 12/09/22
--- OUTSIDE RECORDS SUMMARY | 2024-09-07 07:50 | XMS_ITS | Clinical Summary ---
Author Organization [facility] Address [address] [place] [address] Care Team Providers Care Lease Administration Analyst Name Role Phone Elizabet Minor MD Primary Care Provider [phone] Social History Tobacco Use Types Packs/Day Years [...] Vaccine (2023-2 5 season) 2024 Influenza Vaccine (Season Ended) 2025 04/10/20 18 HIB Vaccines Aged Out No longer eligi [...] age to complete this topic Meningococcal B Vaccine Aged Out No l onger eligible based on patient's age to complete [...] age to complete this topic Care Teams Lease Administration Analyst Relationship Specialty Start Date End Date Elizabet Minor MD PCP - General Internal Medicine 04/21/18
--- OUTSIDE RECORDS SUMMARY | 2024-09-07 07:50 | XMS_ITS ---
Author Organization [facility] Address [address] [place] [address] Care Team Providers Care Aspnet Developer Name Role Phone MARY BAINS Unavailable [phone] REASON FOR VISIT Ubrevly Encounters Encounter Location Date Provider Diagnosis [facility] [address] [place] [address] 08/22/2023 MARY BAINS PLAN OF TREATMENT No Information Progress Notes * Karolyn RAMIREZOB:1990 (33 yo F)Acc No.[id number]:08/22/2023 Patient:??Emilia RAMIREZ :1990?Age:33 Y?Sex:Fe male Address:[address] [place] [address] * true * Date:??
--- OUTSIDE RECORDS SUMMARY | 2024-09-07 07:51 | XMS_ITS | Patient Health Record ---
Author Organization [facility] Address [address] [place] [address] Care Team Providers Care Hr Internship Name Role Phone MARY BAINS Unavailable [phone] ALLERGIES Allergen (clinical drug ingredient) Drug/Non Drug [...] Problem Hyperlipidemia, unspecified (E78.5) Active confirmed Hyperlipidemia (51570192) Problem Epilepsy, unspecified, intractable, without status epilepticus (G40.919) Active confirmed Problem Migraine with aura, intractable, without status migrainosus (G43.119) Active confirmed Refractory migraine with aura (126674049) Problem Other chronic pain (G89.29) Active confirmed 97342641 Problem Other allergic rhinitis (J30.89) Active confirmed Allergic r hinitis (01521725) Problem Paresthesia of skin (R20.2) Active confirmed Paresthesia (finding) (36543592) Problem Migraine without status migrainosus, not intractable, unspecified migraine type (G43.909) Active confirmed 36502540 Problem Anxiety (F41.9) Active confirmed Anxiet y (11728725) Problem Adult general medical exam (Z00.00) Active confirmed Adult health examination (593680707) Problem Irritable bowel syndrome, unspecified type (K58.9) Active confirmed 40766384 Problem Vitamin D deficiency (E55.9) Active confirmed Vitamin D deficiency (01284434) Problem Multiple allergies (Z88.9) Active confirmed 289530102 Problem Migraine with aura and without status migrainosus, not intractable (G43.109) Active confirmed Migraine with aura (8176950) Problem Combined hyperlipidemia (E78.2) Active confirmed Mixed hyperlipidemia (154260771) Problem Lumbar herniated disc (M51.26) Active confirmed 669874938 Problem Intractable migraine with status migrainosus, unspecified migraine type (G43.911) Active confirmed 443914066 PLAN OF TREATMENT Pending Test Test Name [...] End Date [place] [address] [address] [place] [address] [id number] Emilia Aldridge Self - patient is the insured MEDICAL (GENERAL) HISTORY Medical History History ICD Code Migraine with aura, not intractable, wit h status migrainosus G43.101 Seizure R56.9 Chronic pain syndrome G89.4 Surgical History Surgery Date(Month/Year) tonsillectomy
--- OUTSIDE RECORDS SUMMARY | 2024-09-07 07:51 | XMS_ITS | Clinical Summary ---
Author Organization [facility] Address [address] [place] [address] Care Team Providers Care Remote Advisor Name Role Phone ZeroogHarinder aguilar MD Unavailable [phone] Po, Yoni Rodriguez MD Primary Care Provider [phone] Allergies Active Allergy Reactions Criticality Noted Date Comments Amphetamine-Dextroamphe tamine Hives Medium 11/12/2018 Latex Itching Low 09/20/2020 Silicone Other (See Comments),Swelling Medium 11/12/2018 inflammation Medications desogestrel-ethi nyl estradiol (Apri) 0.15-30 MG-MCG per tablet Active ELDERBERRY PO Take by mouth. Active glycopyrrolate (ROBINUL) 2 MG tablet 03/19/2021 Active hydrocortisone (ANUSOL-HC) 2.5 % rectal creamIndications :Hemorrhoids, unspecified hemorrhoid type Insert into the rectum [...] 12/06/2022 Active loperamide (IMODIUM A-D) 2 MG capsuleIndicatio ns:Irritable bowel syndrome with diarrhea TAKE 1 CAPSULE [...] Aunt Celeste Millard Stroke Maternal Grandfather Jamie Apodacach Breast cancer Maternal Grandmother Peggy Munguia In [...] Maternal Grandfather Jamie Apodacach Maternal Grandmother Peggy Munguia Mother Paternal Aunt 1 Paternal Aunt 2 [...] alcohol) Drink socially 1 to 2 beers Comments Unknown Sex and Gender Information Value Date Recorded Sex Assigned at Not on file Legal Sex Female 2:18 PM EDT Gender Identity Female 07/24/2020 4:38 PM EDT [...] - 2023-2 5 season) 2024 Influenza Vaccine 12/03/2024 Pap Smear (Ages 21-65) 10/18/2025 3, 05/12/2020 HPV Vaccines Aged Out No longer eligi ble based on patient's age to complete this topic Pneumococcal Vaccine: Pediatric (0-5 Years) and At-Risk Patients (6 to 49 Years) Aged Out No longer eligible b ased on patient's age to complete this topic Procedures Procedure Name Priority Date/Time Associated Diagnosis Comments THINPREP PAP TEST (APARTMENT RENTAL AGENT) WITH HPV REFLEX Routine 10/18/2022 12:00 AM EDT from Last 3 Months or Most Recently Relevant to Health Maintenance Results * ThinPrep Pap Test (Spot Machine Operator) with HPV Reflex (10/18/2022 12:00 AM EDT) Report Report [facility] Comment: Final Gynecological Cytology Report ThinPrep Pap Test with HPV Reflex SPECIMEN ADEQUACY: SATISFACTORY FOR EVALUATION; ENDOCERVICAL/TRANSFORMATION ZONE COMPONENT PRESENT. INTERPRETATION: NEGATIVE FOR INTRAEPITHELIAL LESION OR MALIGNANCY. Electronically Signed: ??Johanna Ford CT (ASCP) CLINICAL INFORMATION: LMP: 07/03/2022 Clinical History: ??RTN Biopsy Date: ??NG Specimen Source: ??Cervix, Endocervix Previous Pap Date: ??NG CPT Codes: 91523 ICD Codes: Z12.4 Other 10/18/2022 10/21/2022 9:3 2 PM EDT Narrative [facility] - 10/23/2022 1:02 PM EDT OCPS Rebecca Salazar MD LAB AMB PATH/CYTO ORDERABLE S Final Result Performing Organization Address City/State/[facility] Co de Phone Number [facility] [address], [place] from Last 3 Months or Most Recently Relevant to Health Maintenance Insurance [employer] [address] [place] [address] COMPREHENSIVE Care Teams Remote Advisor Relationship Specialty Start Date End Date Yoni Jimenez MD [address] [place] [address] [place] [address] PCP - General Internal Medicine 12/09/22 Harinder Edouard MD [address] [place] [address] Internal Medicine 07/25/20
== END 2024-09-07 07:49 | disposition home or self-care (01) ==
LOC: HO.US 07:48
PROVIDERS: PCP Internal Medicine; Visit Provider Internal Medicine
DX: K82.8 Other specified diseases of gallbladder (principal)
CPT/HCPCS: 76705

== ENCOUNTER → 2024-09-07 07:49 | Outpatient (BNV) | payer OTHER, SELFPAY | PROVIDERS: PCP Internal Medicine; Visit Provider Radiology Diagnostic Radiology | DX: K82.8 Other specified diseases of gallbladder (principal) | CPT/HCPCS: 76705 ==

== ENCOUNTER 2024-10-01 12:37 | Outpatient (AMB) | payer OTHER, SELFPAY ==
[2024-10-01 12:50] VITALS: BP 118/70; PULSE 68; O2SAT 98; BMI 22.0
--- NOTE | 2024-10-01 12:50 | MHC.PC.OV ---
Vital Signs 10/01/24 12:50 Height 5 ft 8 in Weight 145 lb BMI 22.0 BP 118/70 Blood Pressure Location Lt brachial Position Sitting Pulse 68 Pulse Source Pulse Oximeter Pulse Oximetry (%) 98 Oxygen Delivery Method Room Air Intake Visit Reasons: Back Pain Allergies sumatriptan Allergy (Intermediate, Verified 10/01/24 12:50) burning sensation nose amphetamine [From Adderall] Adverse Reaction (Intermediate, Verified 10/01/24 12:50) Hives dextroamphetamine [From Adderall] Adverse Reaction (Intermediate, Verified 10/01/24 12:50) Hives Medication List - Last Reconciled 10/01/24 by Yoni Jimenez MD ascorbic acid-elderberry fruit 100-50 mg (Airborne (elderberry)) tabs PO desogestrel-ethinyl estradiol 0.15-0.03 mg (Apri) 1 tab PO DAILY loperamide 2 mg PO QID Tobacco use date assessed: 10/01/24 Dental Screening Dental Screen Date: 10/01/24 Did you have a dental visit in the last 12 months?: Yes Did you have a dental problem in the last 6 months where you did not have access to dental care?: No Was dental information given to patient?: Patient has dentist HPI Back Pain HPI Details Patient has been having low back pain for the longest time and radiating to the left leg with numbness of the left thigh this has been going on for multiple years but in the last month or so has had a fall on the left buttocks area causing more pain and having problems with sleeping because of the pain. Persistence has prompted for consultation. Meanwhile patient has gone to the [facility] who have had GI workup irrigated revealing negative results patient did see the street contractor here also was ordered for some workup also. 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 [facility] Medical History Recurrent UTI UTI (urinary tract infection) Migraine Surgical History Hx of colonoscopy Hx of tonsillectomy Family History Mother No problems noted. Father Hypertension Sister Melanoma Paternal Aunt Breast cancer Paternal Uncle Brain cancer Maternal Grandmother Breast cancer Social History Household Members: None Housing: House Alcohol intake: current Alcohol intake frequency: holidays/special occasions only Comment: 1-2 /month - 1-2 drinks. 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 1. Little interest or pleasure in doing things: not at all 2. Feeling down, depressed, or hopeless: not at all 3. Trouble falling or staying asleep, or sleeping too much: not at all 4. Feeling tired or having little energy: more than half the days 5. Poor appetite or overeating: not at all 6. Feeling bad about yourself - or that you are a failure or have let yourself or your family down: not at all 7. Trouble concentrating on things, such as reading the newspaper or watching television: not at all 8. Moving or speaking so slowly that other people could have noticed. Or the opposite - being so fidgety or restless that you have been moving around a lot more than usual: not at all 9. Thoughts that you would be better off or of hurting yourself in some way: not at all Total score: 2 Depression Screening Interpretation: Positive Depression Screening Done: Yes Source: Developed by Drs. Jamie Saldivar, Mary Pickett, Vidal Langford and colleagues, with an educational jason from [employer]. Thrive Questionnaire Date Thrive assessed: 10/01/24 I am a: Patient What is your living situation today?: I have a steady place to live Within the past 12 months, did the food you bought not last and you didn't have the money to get more?: Never true Within the past 12 months, did you worry whether your food would run out before you got money to buy more?: Never true Do you have trouble paying for medicines?: No Do you have trouble getting transportation to medical appointments?: No Do you have trouble paying your heating and electricity bill?: No Do you have trouble taking care of your child, family member or friend?: No Do you have trouble with day-to-day activities such as bathing, preparing meals, shopping, managing finances, etc.?: No Are you currently unemployed and looking for a job?: No Are you interested in more education?: No Please select the resources that you would like help with: None Currently or been in a relationship where the following occur: No concerns reported THRIVE Score: 0 AUDIT C Alcohol Use Questionnaire (AUDIT-C) 1. How often do you have a drink containing alcohol?: 2-4 times a month 2. How many drinks containing alcohol do you have on a typical day when you are drinking?: 1 or 2 3. How often do you have six or more drinks on one occasion?: Never Total Score: 2 MANA-7 AMB Questionnaire MANA-7 Date MANA - 7 assessed: 10/01/24 Feeling nervous, anxious, or on edge: 1 = Several days Not being able to stop or control worryin = More than half the days Worrying too much about different things: 1 = Several days Trouble relaxin = Not at all Being so restless that it is hard to sit still: 0 = Not at all Becoming easily annoyed or irritable: 1 = Several days Feeling afraid as if something awful might happen: 0 = Not at all Total MANA-7 score (0-4 normal; 5-9 mild; 10-14 moderate; 15-21 severe): 5 Source: Developed by Drs. Jamie Saldivar, Mary Pickett, Vidal Langford and colleagues, with an educational jason from [employer]. Physical exam (Primary Care) Vital Signs: Last Vital Signs Pulse 68 10/01/24 12:50 BP 118/70 10/01/24 12:50 Pulse Ox 98 10/01/24 12:50 Oxygen Delivery Method Room Air 10/01/24 12:50 BMI result Body Mass Index 22.0 Tobacco/Smoking Status: Tobacco use Status Tobacco use date assessed 10/01/24 10/01/24 12:54 Patient Tobacco Use Status Never used Tobacco 10/01/24 12:54 Tobacco use type Cigarette 10/01/24 12:54 e-Cigarette/Vaping Use Never Used 10/01/24 12:54 PHQ-9: PHQ-9 Score PHQ-9: Total score 2 10/01/24 12:54 Depression Screening Interpretation: Positive Thrive Assessment: Date of Thrive Assessment Date Thrive assessed 10/01/24 10/01/24 12:54 Currently or been in a relationship where the following occur: No concerns reported Const General: alert; No acute distress Eyes Conjunctivae: conjunctivae normal Resp Auscultation: clear to auscultation bilaterally Cardio Rate: regular rate Rhythm: regular rhythm GI Inspection: Yes normal to inspection Back/Spine/Pelvis Other: Tender on the lumbar area as well as on the left paralumbar area and also complains of pain on the left hip Extrem General: Yes normal to inspection and No edema Coding Level of Care Code Est Pt Level 3 (95741) Diagnoses Left hip pain M25.552 Low back pain M54.50 Assessment & Plan Assessment & Plan (1) Left hip pain: Code(s): M25.552 - Pain in left hip Category: Medical Plan: will havex-rays done on the left hip (2) Low back pain: Code(s): M54.50 - Low back pain, unspecified Category: Medical Plan: patient complains of the lower back pain for years and has had physical therapy done with no relief Plan History of Present Illness The patient is a 34-year-old female presenting with back pain in the thoracic and lumbar regions. Her symptoms began about a month ago following a fall on her left side during an attempt to remove a vine from a tree. The fall has since exacerbated the pain. Prior to the incident, the patient experienced general back discomfort but without any severe pain episodes or trauma. Her medical history includes migraines and generalized anxiety disorder, which are managed outside of this visit. The patient denies experiencing any neurological deficits or systemic symptoms such as fever or unintended weight loss associated with this episode. Health Maintenance Social History - Denied any use of substances or discussion of lifestyle changes. - No details of employment, family status, or exercise regimen provided. Review of Systems - Musculoskeletal: Reports thoracic and lumbar back pain. - Neurological: Denies neurological deficits such as numbness or weakness. - General: Denies fever or weight loss. Physical Exam Results Plan During this follow-up visit, the focus was on the thoracic and lumbar back pain, which started after a fall and has worsened since. The increase in pain post-fall requires ongoing evaluation. No systemic causes were apparent today, and management will continue to monitor progress and response to pain strategies. Further intervention or diagnostic imaging may be considered if there is no resolution in her symptoms. Patient was informed and verbally consented to the use of an ambient scribe for clinic note documentation during this visit. Discussion Notes The patient and I reviewed the current status of her thoracic and lumbar pain, confirming that it began post-fall around one month ago. The discussion included that this fall likely exacerbated her previous back pain. We explored how her migraines and anxiety disorder might interplay with treatment and recovery but identified the acute back pain as the primary concern today. No immediate interventions were initiated beyond monitoring; however, we discussed that should her pain persist or worsen, additional diagnostic evaluations could be warranted in future visits. The importance of monitoring for signs of neurological impairment was emphasized. Patient Instructions - Monitor the intensity of back pain and report any changes. - Seek medical attention if experiencing new symptoms such as numbness or weakness. - Follow any recommendations for pain management strategies. Orders: Orders XR hip LT min 2V Today M25.552 - Pain in left hip Cortisol Random Today G43.909 - Migraine, unspecified, not intractable, without status migrainosus MR lumbar spine wo con Today M54.50 - Low back pain, unspecified Parathyroid Hormone Intact Today G43.909 - Migraine, unspecified, not intractable, without status migrainosus Medications: Discontinued simethicone (Gas Relief (simethicone)) Discontinued Reason: Change Referral Type 80 mg PO BID-QID PRN 90 tabs 0RF abdominal distention rifaximin Discontinued Reason: Doctor's Order 550 mg PO TID 14 days 42 tabs 0RF
--- OUTSIDE RECORDS SUMMARY | 2024-10-01 12:59 | XMS_ITS | Clinical Summary ---
Author Organization [facility] [employer] Address [address] [address] Care Team Providers Care Director Environmental Name Role Phone Elizabet Minor MD Primary Care Provider [phone] Allergies Active Allergy Reactions Criticality Noted Date [...] Adults 18 yrs or above (or HM Modifier)([facility]) 01/26/2008 Hepatitis C Virus Infection in Adolescents and Adults: Screening (or Modifier) ([facility]) 01/26/2008 SDOH Screening Reminder: Allison judd for all adults ([facility]) 01/26/2008 Tobacco Smoking Cessation: i n Adults excluding Women: Behavioral and Pharmacotherapy Interventions ([facility]) 01/26/2008 DTaP/Tdap/Td Vaccines ([facility]) (1 - Tdap) 2009 Cervical Cancer Screenin 1-65 yrs of age (or Modifier) 2011 Cervical Cancer Screening: P ap every 3 yrs pts age 21-65 2011 Cervical Cancer: Pap Screeni ng with Modifier timing ([facility]) 2011 Cervical Cancer: hrHPV alone or with cotesting Pap for Pts 30-65yrs screening every 5yrs ([facility]) 2011 COVID-19 Vaccine Screening: Initial Series and Booster Status ([facility]) ( - 2023- season) 2024 Flu Vaccination: Yearly for ages 18mos through 64 years (or Modifier)([facility]) 12/03/2024 Zoster/Shingles Vaccine Seri es Screening: Adults aged 18+ yrs (or HM Modifiers)([facility]) (1 of 2) 01/26/2040 Pneumococcal Vaccination Scr eening: Pts 0-19 & 19-49 yrs of age ([facility]) Aged Out No longer eligible based on patient's age to complete this topic Medical Devices Not on file Insurance [employer] Care Teams Director Environmental Relationship Specialty Start Date End Date Elizabet Minor MD PCP - Household Appliance Installer 11/12/18
== END 2024-10-01 14:02 | disposition home or self-care (01) ==
LOC: HO.HMCH 12:38
PROVIDERS: PCP Internal Medicine; Visit Provider Internal Medicine
DX: M25.552 Pain in left hip (principal); M54.50 Low back pain, unspecified

== ENCOUNTER → 2024-10-01 12:37 | Outpatient (BNVA) | payer OTHER, SELFPAY | PROVIDERS: PCP Internal Medicine; Visit Provider Internal Medicine | DX: Z13.89 Encounter for screening for other disorder (principal) ==

== ENCOUNTER 2024-10-04 06:54 | Outpatient (REF) | payer OTHER, SELFPAY ==
--- NOTE | ~2024-10-04 | XR_ITS ---
CLINICAL HISTORY: M25.552 - Pain in left hip 2 view, pelvis and left hip Comparison: None Findings: The bones are intact. No significant arthritic change. The soft tissues are unremarkable. IMPRESSION: No acute findings. This document has been electronically signed by: Robert Sylvester MD on 10/04/2024 07:51:53
[2024-10-04 08:50] LABS: Parathyroid Hormone Intact 46.3 pg/mL (8.7-77.1)
[2024-10-04 08:59] LABS: Cortisol Random 18.3 ug/dL
== END 2024-10-04 06:55 | disposition home or self-care (01) ==
LOC: HO.XRAY 06:54
PROVIDERS: PCP Internal Medicine; Visit Provider Internal Medicine
DX: M25.552 Pain in left hip (principal); G43.909 Migraine, unspecified, not intractable, without status migrainosus
CPT/HCPCS: 36415; 73502; 82533; 83970

== ENCOUNTER → 2024-10-04 06:57 | Outpatient (BNV) | payer OTHER, SELFPAY | PROVIDERS: PCP Internal Medicine; Visit Provider Radiology Vascular & Interventional Radiology | DX: M25.552 Pain in left hip (principal) | CPT/HCPCS: 73502 ==

== ENCOUNTER → 2024-10-20 07:10 | Outpatient (BNV) | payer OTHER, SELFPAY | PROVIDERS: PCP Internal Medicine; Visit Provider Radiology Diagnostic Radiology | DX: M54.50 Low back pain, unspecified (principal) | CPT/HCPCS: 72148 ==

== ENCOUNTER 2024-10-20 07:11 | Outpatient (REF) | payer OTHER, SELFPAY ==
--- NOTE | ~2024-10-20 | MR_ITS ---
EXAMINATION: MR LUMBAR SPINE WITHOUT CONTRAST CLINICAL INFORMATION: Low back pain, unspecified. COMPARISON: None available. TECHNIQUE: MRI of the lumbar spine was obtained using routine sequences without contrast. FINDINGS: Last rib-bearing vertebra labeled T12. No bone marrow STIR signal abnormality. Normal alignment. Conus medullaris ends at superior endplate of L1 with normal signal. T12-L1: Normal. L1-2: Normal. L2-3: Normal. L3-4: Mild broad-based disc bulging. No compression upon neural elements. No central spinal canal or neuroforamina stenosis. L4-5: Mild broad-based disc bulging. No central spinal canal or neuroforamina stenosis. L5-S1: Mild broad-based disc bulging. No central spinal canal or neuroforamina stenosis. Bilateral perineural cysts, S1. No prevertebral compartment hematoma, mass or fluid collection. MR/MR lumbar spine wo con IMPRESSION: No acute fracture or listhesis or herniated disc. No compression upon neural elements. Electronically signed by: Pineda Lacey MD 10/20/2024 08:21 AM EDT
--- OUTSIDE RECORDS SUMMARY | 2024-10-20 07:13 | XMS_ITS | Clinical Summary ---
Author Organization [facility] [employer] Address [address] [place] [address] Care Team Providers Care Janitor Helper Name Role Phone Elizabet Minor MD Primary [...] Adults 18 yrs or above (or HM Modifier)([facility]) 01/26/2008 Hepatitis C Virus Infection in Adolescents and Adults: Screening (or Modifier) ([facility]) 01/26/2008 SDOH Screening Reminder: Allison judd for all adults ([facility]) 01/26/2008 Tobacco Smoking Cessation: i n Adults excluding Women: Behavioral and Pharmacotherapy Interventions ([facility]) 01/26/2008 DTaP/Tdap/Td Vaccines ([facility]) (1 - Tdap) 2009 Cervical Cancer Screenin 1-65 yrs of age (or Modifier) 2011 Cervical Cancer Screening: P ap every 3 yrs pts age 21-65 2011 Cervical Cancer: Pap Screeni ng with Modifier timing ([facility]) 2011 Cervical Cancer: hrHPV alone or with cotesting Pap for Pts 30-65yrs screening every 5yrs ([facility]) 2011 COVID-19 Vaccine Screening: Initial Series and Booster Status ([facility]) ( - 2023- season) 2024 Flu Vaccination: Yearly for ages 18mos through 64 years (or Modifier)([facility]) 12/03/2024 Zoster/Shingles Vaccine Seri es Screening: Adults aged 18+ yrs (or HM Modifiers)([facility]) (1 of 2) 01/26/2040 Pneumococcal Vaccination Scr eening: Pts 0-19 & 19-49 yrs of age ([facility]) Aged Out No longer eligible based on patient's age to complete this topic Medical Devices Not on file Insurance [employer] Care Teams Janitor Helper Relationship Specialty Start Date End Date Eilzabet Minor MD PCP - Cancer Spec 11/12/18
== END 2024-10-20 07:12 | disposition home or self-care (01) ==
LOC: HO.MRI 07:11
PROVIDERS: PCP Internal Medicine; Visit Provider Internal Medicine
DX: M54.50 Low back pain, unspecified (principal)
CPT/HCPCS: 72148

== ENCOUNTER 2024-12-16 16:20 | Outpatient (AMB) | payer OTHER, SELFPAY ==
--- OUTSIDE RECORDS SUMMARY | 2024-12-16 16:23 | XMS_ITS | Clinical Summary ---
Author Organization [facility] Address [address] [place] [address] Care Team Providers Care Vp Information Technology Name Role Phone Elizabet Minor MD Primary [...] (P ap Smear) 2011 Influenza Vaccine (#1) 2025 Pneumococcal Vaccine Aged Out No long er eligible based on patient's age to complete this topic RSV Ped < 20 months Aged Out No longe r eligible based on patient's age to complete this topic Care Teams Vp Information Technology Relationship Specialty Start Date End Date Elizabet Minor MD [address] [place] [address] PCP - General Internal Medicine 04/21/18
--- OUTSIDE RECORDS SUMMARY | 2024-12-16 16:23 | XMS_ITS | Clinical Summary ---
Author Organization [facility] Address [address] [place] [address] Care Team Providers Care Tube Coater Name Role Phone Brodie Campos MD Primary Care Provider [phone] Medications Desogestrel-Ethiny l Estradiol (Apri) 0.15-30 MG-MCG [...] (1 - 2023-2 5 season) 2024 Influenza (#1) 2025 Zoster (Shingrix) (1 of 2) 01/26/2040 HPV Vaccine (No Doses Required) Completed Hep A Aged Out No longer eligi ble based on patient's age to complete this topic Hib Aged Out No longer eligi ble based on patient's age to complete this topic Meningococcal ACWY Aged Out No longer eligible based on patient's age to complete this topic Pneumococcal Aged Out No longer eligi ble based on patient's age to complete this topic Care Teams Tube Coater Relationship Specialty Start Date End Date Brodie Campos MD [address] [place] [address] PCP - General 12/09/22
--- OUTSIDE RECORDS SUMMARY | 2024-12-16 16:23 | XMS_ITS | Clinical Summary ---
Author Organization [facility] Address [address] [place] [address] Care Team Providers Care Apartment House Manager Name Role Phone Elizabet Minor MD Primary Care Provider [phone] Social History Tobacco Use Types Packs/Day Years [...] 2011 COVID-19 Vaccine (2023-2 5 season) 2024 Depression Screening 05/05/2024 Influenza Vaccine (#1) 2025 04/10/2018 HIB Vaccines Aged Out No longer [...] 5 Years) and At-Risk Patients (6 to 49 Years) Aged Out No longer eligi ble based on patient's age to complete this topic RSV Immunization Patients Un aureliano 20 months Aged Out No longer eligible b ased on patient's age to complete this topic Varicella Vaccines Aged Out No longer eligible based on patient's age to complete this topic Care Teams Apartment House Manager Relationship Specialty Start Date End Date Elizabet Minor MD PCP - General Internal Medicine 04/21/18
--- OUTSIDE RECORDS SUMMARY | 2024-12-16 16:23 | XMS_ITS | Clinical Summary ---
Author Organization [facility] [employer] Address [address] [place] [address] Care Team Providers Care Airset Molder Name Role Phone Elizabet Minor MD Primary [...] Adults 18 yrs or above (or HM Modifier)([facility]) 01/26/2008 Hepatitis C Virus Infection in Adolescents and Adults: Screening (or Modifier) ([facility]) 01/26/2008 SDOH Screening Reminder: Allison judd for all adults ([facility]) 01/26/2008 Tobacco Smoking Cessation: i n Adults excluding Women: Behavioral and Pharmacotherapy Interventions ([facility]) 01/26/2008 DTaP/Tdap/Td Vaccines ([facility]) (1 - Tdap) 2009 Cervical Cancer Screenin 1-65 yrs of age (or Modifier) 2011 Cervical Cancer Screening: P ap every 3 yrs pts age 21-65 2011 Cervical Cancer: Pap Screeni ng with Modifier timing ([facility]) 2011 Cervical Cancer: hrHPV alone or with cotesting Pap for Pts 30-65yrs screening every 5yrs ([facility]) 2011 COVID-19 Vaccine Screening: Initial Series and Booster Status ([facility]) ( - 2023- season) 2024 Flu Vaccination: Yearly for ages 18mos through 64 years (or Modifier)([facility]) 12/03/2024 Zoster/Shingles Vaccine Seri es Screening: Adults aged 18+ yrs (or HM Modifiers)([facility]) (1 of 2) 01/26/2040 Pneumococcal Vaccination Scr eening: Pts 0-19 & 19-49 yrs of age ([facility]) Aged Out No longer eligible based on patient's age to complete this topic Medical Devices Not on file Insurance [employer] Care Teams Airset Molder Relationship Specialty Start Date End Date Elizabet Minor MD PCP - Curator 11/12/18
[2024-12-16 16:24] VITALS: BP 120/60; PULSE 65; TEMP 36.3; O2SAT 98; BMI 21.7
--- NOTE | 2024-12-16 16:24 | A.OFFPC_ITS ---
Vital Signs 12/16/24 16:24 12/16/24 16:54 Height 5 ft 8 in Weight 143 lb BMI 21.7 BP 120/60 98/60 Blood Pressure Location Lt brachial Lt brachial Position Sitting Sitting Pulse 65 Pulse Source Pulse Oximeter Temp 97.3 F Temp Source Temporal Artery Scan Pulse Oximetry (%) 98 Oxygen Delivery Method Room Air Intake Visit Reasons: Annual Exam Intake Note: Patient is here today for a physical. 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: Not Required per policy Accompanied by: Self / Same As Patient Allergies sumatriptan Allergy (Intermediate, Verified 12/16/24 16:25) burning sensation nose amphetamine (From Adderall) Adverse Reaction (Intermediate, Verified 12/16/24 16:25) Hives dextroamphetamine (From Adderall) Adverse Reaction (Intermediate, Verified 12/16/24 16:25) Hives Medication List - Last Reconciled 12/16/24 by Yoni Jimenez MD ascorbic acid-elderberry fruit 100-50 mg (Airborne (elderberry)) tabs PO desogestrel-ethinyl estradiol 0.15-0.03 mg (Apri) 1 tab PO DAILY loperamide 2 mg PO QID Tobacco use date assessed: 10/01/24 Dental Screening Dental Screen Date: 10/01/24 [facility] Medical History Recurrent UTI UTI (urinary tract infection) Migraine Surgical History Hx of colonoscopy Hx of tonsillectomy Family History Mother No problems noted. Father Hypertension Sister Melanoma Paternal Aunt Breast cancer Paternal Uncle Brain cancer Maternal Grandmother Breast cancer Social History Household Members: None Housing: House Alcohol intake: current Alcohol intake frequency: holidays/special occasions only Comment: 1-2 /month - 1-2 drinks. 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 1. Little interest or pleasure in doing things: not at all 2. Feeling down, depressed, or hopeless: not at all 3. Trouble falling or staying asleep, or sleeping too much: not at all 4. Feeling tired or having little energy: more than half the days 5. Poor appetite or overeating: not at all 6. Feeling bad about yourself - or that you are a failure or have let yourself or your family down: not at all 7. Trouble concentrating on things, such as reading the newspaper or watching television: not at all 8. Moving or speaking so slowly that other people could have noticed. Or the opposite - being so fidgety or restless that you have been moving around a lot more than usual: not at all 9. Thoughts that you would be better off or of hurting yourself in some way: not at all Total score: 2 Depression Screening Interpretation: Positive Depression Screening Done: Yes Source: Developed by Drs. Jamie Saldivar, Mary Pickett, Vidal Langford and colleagues, with an educational jason from [employer]. Thrive Questionnaire Date Thrive assessed: 12/16/24 I am a: Patient What is your living situation today?: I have a steady place to live Within the past 12 months, did the food you bought not last and you didn't have the money to get more?: Never true Within the past 12 months, did you worry whether your food would run out before you got money to buy more?: Never true Do you have trouble paying for medicines?: No Do you have trouble getting transportation to medical appointments?: No Do you have trouble paying your heating and electricity bill?: No Do you have trouble taking care of your child, family member or friend?: No Do you have trouble with day-to-day activities such as bathing, preparing meals, shopping, managing finances, etc.?: No Are you currently unemployed and looking for a job?: No Are you interested in more education?: No Please select the resources that you would like help with: None Currently or been in a relationship where the following occur: No concerns reported THRIVE Score: 0 AUDIT C Alcohol Use Questionnaire (AUDIT-C) 1. How often do you have a drink containing alcohol?: 2-4 times a month 2. How many drinks containing alcohol do you have on a typical day when you are drinking?: 1 or 2 3. How often do you have six or more drinks on one occasion?: Never Total Score: 2 MANA-7 AMB Questionnaire MANA-7 Date MANA - 7 assessed: 12/16/24 Feeling nervous, anxious, or on edge: 1 = Several days Not being able to stop or control worryin = More than half the days Worrying too much about different things: 1 = Several days Trouble relaxin = Not at all Being so restless that it is hard to sit still: 0 = Not at all Becoming easily annoyed or irritable: 1 = Several days Feeling afraid as if something awful might happen: 0 = Not at all Total MANA-7 score (0-4 normal; 5-9 mild; 10-14 moderate; 15-21 severe): 5 Source: Developed by Drs. Jamie Saldivar, Mary Pickett, Vidal Langford and colleagues, with an educational jason from [employer]. Review of Systems Const Denies poor appetite and Denies weakness Eyes Denies no additional complaints ENT Reports Normal hearing present, Denies dizziness, Denies nasal congestion, Denies tinnitus and Denies sore throat Card Denies chest pain, Denies syncope, Denies rapid heart rate and Denies dyspnea Resp Denies cough and Denies dyspnea GI Denies change in stool character, Reports constipation, Denies diarrhea, Denies nausea and Denies vomiting Denies urinary frequency, Denies difficulty voiding and Denies dysuria Neuro Reports Normal hearing present, Denies confusion, Denies dizziness, Denies syncope and Denies weakness Psych Denies confusion Physical exam (Primary Care) Vital Signs: Last Vital Signs Temp 97.3 F 12/16/24 16:24 Pulse 65 12/16/24 16:24 BP 120/60 12/16/24 16:24 Pulse Ox 98 12/16/24 16:24 Oxygen Delivery Method Room Air 12/16/24 16:24 BMI result Body Mass Index 21.7 Tobacco/Smoking Status: Tobacco use Status Tobacco use date assessed 10/01/24 12/16/24 16:25 Patient Tobacco Use Status Never used Tobacco 12/16/24 16:25 Tobacco use type Cigarette 12/16/24 16:25 e-Cigarette/Vaping Use Never Used 12/16/24 16:25 PHQ-9: PHQ-9 Score PHQ-9: Total score 2 12/16/24 16:31 Depression Screening Interpretation: Positive Thrive Assessment: Date of Thrive Assessment Date Thrive assessed 12/16/24 12/16/24 16:25 Currently or been in a relationship where the following occur: No concerns reported Const General: No confusion Orientation/consciousness: No confusion HENMT Head: Yes normocephalic Ears: external ears normal and TM's normal bilaterally Face and sinus: Yes normal facial exam Mouth: moist mucous membranes Throat: Yes tonsils normal Eyes Conjunctivae: conjunctivae normal Pupils: Equal, round and reactive pupils present and Pupil accommodation reflex normal Direct Ophthalmoscopy: normal light reflex Neck Neck: No lymphadenopathy Thyroid: Thyroid normal Chest Chest palpation & inspection: normal inspection of the chest Resp Effort & Inspection: normal respiratory effort and no audible wheezes Auscultation: clear to auscultation bilaterally, no crackles, no wheezes and lung sounds not diminished Cardio Rate: regular rate Rhythm: regular rhythm Peripheral pulses: radial pulses present and dorsalis pedis present GI Palpation (GI): no masses Auscultation: normal bowel sounds and normoactive bowel sounds Rectal Exam - Female: deferred Skin General skin exam: no rashes or lesions noted Rashes: no rashes Neuro General: No confusion Cranial nerves: Yes Equal, round and reactive pupils present and Yes Normal hearing present Cognition (Neuro): normal cognition Gait exam (Neuro): Normal gait present Motor exam (neuro): 5/5 motor strength present throughout Deep tendon reflexes (DTR's): Right brachioradialis reflex intensity grade: 2+, Left brachioradialis reflex intensity grade: 2+, Right patellar reflex intensity grade: 2+ and Left patellar reflex intensity grade: 2+ Extrem General: No edema Coding Level of Care Code Est Pt Prev Care 18-39y(99373) Diagnoses Annual physical exam Z00.00 Migraine G43.909 Low back pain M54.50 Irritable bowel syndrome K58.9 Generalized anxiety disorder F41.1 Assessment & Plan Assessment & Plan (1) Annual physical exam: Code(s): Z00.00 - Encounter for general adult medical examination without abnormal findings Category: Medical Plan: Patient is advised to eat healthy, keep well hydrated, keep active and have adequate sleep. (2) Migraine: Comment: once a med Code(s): G43.909 - Migraine, unspecified, not intractable, without status migrainosus Category: Medical Plan: Keep well hydrated, have enough/adequate sleep (3) Low back pain: Code(s): M54.50 - Low back pain, unspecified Category: Medical Plan: Keep active avoid heavy lifting. presently having Physical therapy. (4) Irritable bowel syndrome: Code(s): K58.9 - Irritable bowel syndrome, unspecified Category: Medical Plan: Eat healthy (5) Generalized anxiety disorder: Code(s): F41.1 - Generalized anxiety disorder Category: Medical Plan: Stable Plan History of Present Illness The patient is a 34-year-old female presenting for a physical examination. She has a history of migraines, irritable bowel syndrome, generalized anxiety disorder, and low back pain. Previously, she was seen in September for left hip pain and low back pain, which prompted further investigation. A lumbar MRI conducted on October 20 showed no acute fracture or compression but revealed bilateral perineural cysts at S1 and mild broad-based disc bulging at L5-S1, L4-L5, and L3-L4. A hip X-ray was negative for any abnormalities. Blood work done in April showed normal blood count, PTH, thyroid numbers, electrolytes, and renal function, with an LDL cholesterol level of 99 mg/dL. Health Maintenance - Wellness plan includes maintaining hydration, adequate sleep, and a healthy diet. Social History Review of Systems - Neurological: Reports migraines. - Gastrointestinal: Reports irritable bowel syndrome. - Psychiatric: Reports generalized anxiety disorder. - Musculoskeletal: Reports low back pain. Physical Exam General: Cooperative, healthy appearing, comfortable, no acute distress and well developed Orientation: Patient oriented x3 Limitations: No limitations Head: Normal to inspection Ears: Hearing grossly normal bilaterally Nose: Normal external nose present Face and sinus: Normal facial exam Eyes: Appearance normal, both eyes and all related structures Neck: Normal visual inspection and Yes full ROM Respiratory: Normal respiratory effort and able to speak in complete sentences. Clear to auscultation bilaterally Cardiovascular: Regular rate and rhythm. Normal S1 and S2 GI: Normal to inspection. Soft to palpation and nontender Skin: No rashes or lesions noted Neuro: Patient oriented x3 Extremities: Normal to inspection Results - MRI: No acute fracture or compression, bilateral perineural cysts at S1, mild broad-based disc bulging at L5-S1, L4-L5, and L3-L4. - X-ray: Hip X-ray negative for abnormalities. - Labs: Normal blood count, PTH, thyroid numbers, electrolytes, renal function; LDL cholesterol level of 99 mg/dL. Plan The patient is advised to maintain a wellness plan that includes staying well- hydrated, ensuring adequate sleep, and following a healthy diet. For her low back pain, it is recommended to avoid heavy lifting and keep active within comfortable limits. Patient was informed and verbally consented to the use of an ambient scribe for clinic note documentation during this visit. Discussion Notes Patient Instructions - Stay well-hydrated and ensure you get enough sleep. - Follow a healthy diet and keep active, but avoid heavy lifting. History of Present Illness The patient is a 34-year-old female presenting with gastrointestinal issues, low blood pressure, and back pain. The gastrointestinal issues include bloating, diarrhea, and constipation. The patient reports alternating diarrhea and constipation, with diarrhea occurring when not on Imodium and constipation when taking it. She has tried various fibers and probiotics without significant improvement. The patient experiences low blood pressure, which was noted during a recent visit to the transfill technician where her blood pressure was recorded as 82/57 mmHg. She has been advised to increase fluid intake to manage this condition. The patient also reports persistent back pain, which she describes as radiating from the lower back to the buttocks and sometimes to the legs. She has undergone physical therapy and massage therapy, with some relief noted from physical therapy. Anxiety is also a concern for the patient, which she feels exacerbates her gastrointestinal symptoms. She has previously tried Lexapro without significant improvement and prefers not to be on medication. The patient has a significant family history of cancer, including breast cancer in her aunt and grandmother, melanoma in her sister, and brain cancer in her uncle. Health Maintenance - Diet: Patient is trying a Mediterranean diet to manage gastrointestinal symptoms. - Exercise: Engages in cycling for 30 minutes to an hour as part of physical activity. 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 - Substance Use: Consumes alcohol once a week, 1-2 drinks, denies smoking and recreational drug use. - Exercise: Engages in cycling for physical activity. - Diet: Primarily consumes rice and chicken, with attempts to follow a Mediterranean diet. Review of Systems - Gastrointestinal: Reports bloating, diarrhea, and constipation. Denies nausea, vomiting, or heartburn. - Cardiovascular: Reports low blood pressure. Denies chest pain or palpitations. - Musculoskeletal: Reports back pain radiating to buttocks and legs. - Neurological: Denies dizziness or syncope. - Respiratory: Denies dyspnea or cough. - Dermatological: Reports redness on the nose. - Psychological: Reports anxiety, denies depression. Physical Exam General: Cooperative, healthy appearing, comfortable, no acute distress and well developed Orientation: Patient oriented x3 Limitations: No limitations Head: Normal to inspection Ears: Hearing difficulty noted, but previous check was fine Nose: Normal external nose present, redness noted on the tip Face and sinus: Normal facial exam Eyes: Appearance normal, both eyes and all related structures Neck: Normal visual inspection and Yes full ROM Respiratory: Normal respiratory effort and able to speak in complete sentences. Clear to auscultation bilaterally Cardiovascular: Regular rate and rhythm. Normal S1 and S2 GI: Normal to inspection. Soft to palpation and nontender, but patient reports bloating and alternating diarrhea and constipation Skin: No rashes or lesions noted, redness on the tip of the nose due to dry skin Neuro: Patient oriented x3, reports lightheadedness and brain fog Extremities: Normal to inspection, but reports pain in the left hip and SI joint Results - Labs: Stool sample test for nutrient absorption returned normal. - Imaging: MRI showed minor disc bulge and neural cysts. Plan The patient will be referred to a different transfill technician to further evaluate her gastrointestinal symptoms, as previous consultations have not provided satisfactory progress. She is advised to continue monitoring her diet, particularly avoiding foods that exacerbate bloating and gas, and to try different fibers to manage her bowel movements. For her low blood pressure, increasing fluid intake is recommended to help stabilize her blood pressure levels. If symptoms persist or worsen, further evaluation may be necessary. Regarding her back pain, the patient is encouraged to continue physical therapy, which has shown some benefit. She should avoid activities that may exacerbate her pain, such as heavy lifting or prolonged standing. Anxiety management will focus on non-pharmacological approaches, as the patient prefers to avoid medication. She is encouraged to maintain open communication with her support system and consider stress-reduction techniques. Patient was informed and verbally consented to the use of an ambient scribe for clinic note documentation during this visit. Discussion Notes During the consultation, we discussed the patient's ongoing gastrointestinal issues and the need for a referral to a different transfill technician for further evaluation. We reviewed dietary modifications to help manage her symptoms, including avoiding foods that cause bloating and gas. For her low blood pressure, I emphasized the importance of increasing fluid intake and monitoring her symptoms. We also discussed her back pain management, recommending continued physical therapy and avoiding activities that could worsen her condition. Regarding anxiety, we agreed on focusing on non-pharmacological management strategies, as the patient prefers to avoid medication. Patient Instructions - Follow up with the new transfill technician for further evaluation of gastrointestinal symptoms. - Monitor and adjust diet to avoid foods that cause bloating and gas. - Increase fluid intake to help manage low blood pressure. - Continue physical therapy for back pain and avoid heavy lifting or prolonged standing. - Focus on stress-reduction techniques and maintain communication with your support system for anxiety management. Orders: Referrals Gastroenterology Referral K58.9 - Irritable bowel syndrome, unspecified
--- OUTSIDE RECORDS SUMMARY | 2024-12-16 16:25 | XMS_ITS | Clinical Summary ---
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 023 12/11/2022 Encounters Date Type Department Care Team Description 11/19/2024 Orders Only [address] [id number] Rebecca Salazar MD from Last 3 Months Family History Medical History Relation Name Comments Hypertension Father Ezra Aldridge Diabetes Maternal Aunt Celeste Millard Stroke Maternal Grandfather Jamie Munguia Breast cancer Maternal Grandmother Peggy Ezra In R emission No Known Problems Mother [...] Comments Father Ezra Aldridge Maternal Aunt Celeste Stillp Maternal Grandfather Jamie Munguia Maternal Grandmother Peggy Apodacach Mother Paternal Aunt [...] 60 03/22/2021 11:25 AM EST Temperature 36.4 C (97.5 F) 03/22/2021 11:25 AM EST Respiratory Rate - - Oxygen Saturation - [...] Influenza Vaccine 12/03/2024 Pap Smear (Ages 21-65) 11/20/2027 , 10/18/2022, 05/12/2020 HPV Vaccines Aged Out No longer eligi ble based on patient's age to complete this topic Pneumococcal Vaccine: Pediatric (0-5 Years) and At-Risk Patients (6 to 49 Years) Aged Out No longer eligible b ased on patient's age to complete this topic Procedures Procedure Name Priority Date/Time Associated Diagnosis Comments THINPREP PAP(SWITCHBOARD AND CONTROL ROOM OPERATOR) HPV SCR RFX HPV 16,18/45 Routine 11/19/2024 1:07 AM EDT from Last 3 Months Results * ThinPrep Pap([employer]) HPV Scr Rfx HPV 16,18/45 (11/19/2024 1:07 AM EDT) Report Report [facility] Comment: Final Gynecological Cytology Report ThinPrep Pap Test, HPV Screen, Reflex HPV Genotype SPECIMEN ADEQUACY: SATISFACTORY FOR EVALUATION; ENDOCERVICAL/TRANSFORMATION ZONE COMPONENT ABSENT/INSUFFICIENT . INTERPRETATION: NEGATIVE FOR INTRAEPITHELIAL LESION OR MALIGNANCY. Electronically Signed: Shukri Townsend, CT, ASCP CLINICAL INFORMATION: LMP: NG Clinical History: NG Biopsy Date: NG Specimen Source: Cervix, Endocervix Previous Pap Date: 10/18/2022 HPV RESULTS: HPV mRNA E6/E7 [id number] Approved: 11/20/24 Negative REF RANGE: Negative CPT Codes: 27636 ICD Codes: Z12.4 11/19/2024 1:07 AM EDT 11/20/2024 1:23 AM EDT Narrative [facility] - 11/22/2024 7:22 AM EDT CONTRACEPTION = OCPS Rebecca Salazar MD LAB AMB PATH/CYTO ORDERABLE S Final Result Performing Organization Address City/State/[facility] Co de Phone Number [facility] [address] [place], [place] from Last 3 Months Insurance [facility] [employer]PRE[employer] [place] [address] [address] COMPREHENSIVE Care Teams Operator Electronic Warfare Relationship Specialty Start Date End Date Yoni Jimenez MD [address] [place] [address] [place] [address] PCP - General Internal Medicine 12/09/22 Harinder Edouard MD [address] [place] [id number] Internal Medicine 07/25/20
--- OUTSIDE RECORDS SUMMARY | 2024-12-16 16:25 | XMS_ITS ---
Author Name [facility] Organization Unknown History of Medication Use Medication Directions Dispensed Refills Start Date End Date Stat us loperamide (IMODIUM A-D) 2 MG capsule TAKE 1 CAPSULE BY MOUTH 4 TIMES A DAY NEEDED FOR DIARRHEA. 05/08/2023 active ALPRAZolam (XANAX) 0.25 MG tablet 12/06/2022 active loperamide (IMODIUM A-D) 2 MG capsule Take 1 capsule (2 mg total) by mouth 4 (four) times a day as needed for diarrhea. 03/14/2022 05/08/2023 active hydrocortisone (ANUSOL-HC) 2.5 % rectal cream Insert into the rectum 3 (three) times a day as needed for hemorrhoids. 03/22/2021 active ubrogepant (Ubrelvy) 100 MG tablet Take 100 mg by mouth once as needed for migraine. May repeat in 2 hours if unresolved. Do not exceed 200 mg in 24 hours. active Allergies Allergen Reaction Severity Comment Documented Date Source Statu s LATEX ITCHING 09/20/2020 [facility] active SILICONE SWELLING inflammation 11/12/2018 [facility] active AMPHETAMINE-DEXTROAMPHET AMINE HIVES [facility] Problems Problem Status Onset Date Problem Type Date of Resoluti on Source Anxiety state active 2022-12-11 ProblemAct [facility] Irritable bowel syndrome with diarrhea active 2020-05-13 ProblemAct [facility] Dysmenorrhea active 2022-12-11 ProblemAct [facility] Encounters Encounter Type Encounter Reason Primary Diagnosis Location Date Ambulatory 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) (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) w/o abn findings 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) (routine) w/o abn findings [facility] 11/19/2024 Ambulatory 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) (routine) w/o abn findings 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) (routine) w/o abn findings [facility], [facility] 10/24/2023 Ambulatory Irritable bowel syndrome with diarrhea Irritable bowel syndrome with diarrhea [facility] 12/11/2022 Ambulatory [facility] 10/18/2022 Ambulatory [facility] 07/10/2021 Ambulatory Irritable bowel syndrome with diarrhea [facility] 05/25/2021 Ambulatory Unspecified abdominal pain [facility] 05/15/2021 Ambulatory Irritable bowel syndrome with diarrhea [facility] 03/22/2021 Care Team Organization Name Specialty Phone Email Start Date End Da te [facility] 12/11/2022 12/11/2022 [facility] 12/11/2022 [facility] 07/13/2021 [facility] 07/10/2021 07/10/2021 [facility] 05/25/2021 [facility] 05/15/2021 05/15/2021
[2024-12-16 16:54] VITALS: BP 98/60
== END 2024-12-16 17:26 | disposition home or self-care (01) ==
LOC: HO.HMCH 16:21
PROVIDERS: PCP Internal Medicine; Visit Provider Internal Medicine
DX: Z00.00 Encounter for general adult medical examination without abnormal findings (principal); G43.909 Migraine, unspecified, not intractable, without status migrainosus; M54.50 Low back pain, unspecified; K58.9 Irritable bowel syndrome, unspecified; F41.1 Generalized anxiety disorder

== ENCOUNTER 2024-12-22 06:57 | Outpatient (REF) | payer OTHER, SELFPAY ==
[2024-12-22 07:15] LABS: MANUAL DIFF FLAG NO
[2024-12-22 07:49] LABS: Hematocrit 41.2 % (37.0-47.0); Hemoglobin 13.4 g/dl (12.0-16.0); Imm Gran Abs Auto 0.01 X10*3/uL (0.00-0.03); Imm Gran Pct Auto 0.2 % (0.0-0.4); Lymphocytes Absolute Auto 2.1 X10*3/uL (1.2-4.9); Mean Corpuscular HGB Conc 32.5 g/dl (31.0-35.0); Mean Corpuscular Hemoglobin 29.5 pg (27.0-33.0); Mean Corpuscular Volume 90.5 fL (80.0-98.0); NRBC Abs Auto 0.000 X10*3/uL (0.0-0.012); NRBC Pct Auto 0.0 /100WBC (0.0-0.2); Platelet Count 252 X10*3/uL (160-400); Red Blood Count 4.55 X10*6/uL (4.20-5.50); White Blood Count 6.4 X10*3/uL (4.8-10.8)
[2024-12-22 08:16] LABS: Appearance Urine Clear; Glucose Urine UA Negative (Negative); PH 5.0 (5.0-9.0); Specific Gravity - Urine 1.020 (1.005-1.025); UMIC TRIGGER UACC YES
[2024-12-22 08:27] LABS: Alanine Aminotransferase 20 U/L (0-31); Albumin Level 4.3 g/dL (3.5-5.0); Alkaline Phosphatase 46 U/L (39-117); Anion Gap 14 (12-20); Aspartate Amino Transferase 19 U/L (5-31); Blood Urea Nitrogen 11 mg/dL (9-16); Calcium 8.7 mg/dL (8.4-10.2); Carbon Dioxide 22 mmol/L (22-29); Chloride 107 mmol/L (96-108); Cholesterol 216 mg/dL (<200); Estimated Glomerular Filt Rate > 60; HDL Cholesterol 59 mg/dL (>40); Potassium 4.4 mmol/L (3.3-5.1); Sodium 139 mmol/L (135-145); Total Protein 7.2 g/dL (6.5-8.0); Triglycerides 185 mg/dL (<150)
[2024-12-22 08:28] LABS: UACC Culture Trigger YES
[2024-12-22 08:42] LABS: Free T4 (Free Thyroxine) 0.85 ng/dL (0.71-1.85); Thyroid Stimulating Hormone 1.01 uIU/mL (0.32-4.0)
[2024-12-22 09:16] LABS: Folate 9.6 ng/mL (> or = 4.0); Vitamin B12 489 pg/mL (200-900)
== END 2024-12-22 06:58 | disposition home or self-care (01) ==
LOC: HO.LAB 06:57
PROVIDERS: PCP Internal Medicine; Visit Provider Internal Medicine
DX: R30.0 Dysuria (principal); M54.50 Low back pain, unspecified; E78.00 Pure hypercholesterolemia, unspecified
CPT/HCPCS: 36415; 80053; 80061; 81001; 81003; 82306; 82607; 82746; 84439; 84443; 85025; 87086

== ENCOUNTER 2025-01-05 07:04 | Outpatient (RCR) | payer OTHER, SELFPAY ==
--- NOTE | 2024-10-14 13:52 | MHC.PT.EP ---
[facility] [place] Office [place] Office [place] Office [address] Jesica Hernández [address] [phone] F: [phone] F: [phone] F: [phone] F: [phone] Physical Therapy Plan of Care Date of Evaluation: 10/13/24 Date of Surgery: N/A Diagnosis: lumbar spine pain (RL) Assessment: pt is a 34 y/o female presenting to physical therapy w/ referring diagnosis of lumbar spine pain. The chronicity of her symptoms do add a layer of complexity; however, L sided pelvic pain is new. These seem more consistent w/ SI joint pain as opposed to a lumbar radiculopathy. Will continue to monitor and treat or refer as appropriate. Impairments include pain, decreased range of motion, decreased strength, impaired functional mobility, impaired postural awareness, and altered ambulation mechanics. pt is a fair candidate for skilled PT due to age, potential remediation of impairments, typical disease/condition progression and prognosis, comorbidities, and motivation. pt would benefit from skilled PT intervention to provide a tailored strengthening and stretching exercise program, functional training, gait training, postural re-training, neuromuscular re-education, modalities as needed for pain, equipment safety demonstration. Frequency and Duration: The patient will be seen 2x/wk for 4 wks Short Term Goals: pt will be I w/ HEP to promote self-management of condition. pt will demo proper sitting posture w/ lumbar roll to promote neutral spine w/ seated ADLs. Green Promotions Specialist Goals: pt will improve B hip ABD and flex strength to at least 4+/5 to promote ease in navigating stairs. pt will report a statistically significant improvement in self-reported outcome measure, Osorio, to promote return to PLOF. Treatment Plan: Modalities to reduce pain, spasms and effusion. Manual therapy to restore motion and function. Therapeutic exercise to improve strength and flexibility. Neuromuscular re-education for posture and balance. Therapeutic activities to return to functional activities of daily living. Electronically signed by: Mirna Roberts PT, DPT Please sign and return to therapist. Thank you for your referral.
--- NOTE | 2025-01-05 08:39 | MHC.PT.DC ---
[facility] [place] [facility] [place] [facility] [place] [facility] [address] [phone] F: [phone] F: [phone] F: [phone] F: [phone] Physical Therapy Discharge Report Diagnosis: lumbar spine pain (RL) Date of Surgery: N/A Date of Evaluation: 10/13/24 Date of Discharge: 01/05/25 Treatments to Date: 17 Cancellations to Date: 3 No Shows to Date: 0 Discharge Status: Achieved Goals Improved Function Independent with HEP Discharge Summary: BEHZAD HAS PROGRESSED WELL IN PT- SHE DISPLAYS WFL TRUNK AROM AND MORE EFFICIENT BODY MECH W ADLs.. HER STRENGTH HAS IMPROVED EVIDENT W WFL LUMBOPELVIC SYMM; SHE HAS A MORE COMPREHENSIVE AWARENESS RE POSTURE AND BODY MECH W ADLs AND WORK-SITE TO ALLOW HER INDEP SELF -MANAGEMENT OF HER SXS - SHE HAS MET HER PT GOALS AT THIS TIME- WE HAVE DISCUSSED THE IMPORTANCE OF CONSISTENCY/ CONTINUITY W HER HEP UPON D/C FOR OPTIMAL SX RESOLUTION/ MGMT. HER OSWESTRY IS Electronically signed by: SJ DE LA CRUZ,PT Please sign and return to therapist. Thank you for your referral.
== END 2025-01-05 08:32 | disposition home or self-care (01) ==
LOC: HO.PT 07:04
PROVIDERS: PCP Internal Medicine
DX: M54.50 Low back pain, unspecified (principal)
CPT/HCPCS: 97110; 97112; 97140; 97161; 97530